=== PATIENT | male | born 1965 | race Caucasian/White ===

== ENCOUNTER 2017-02-27 18:05 | Emergency (ER) | payer BC, OTHER ==
[~2017-02-27] VITALS: Ht 180.3 cm; Wt 108.1 kg
[2017-02-27 18:09] VITALS: TEMP 36.7; Ht 180.3 cm; Wt 108.1 kg
[2017-02-27] MEDS ORDERED: IBUPROFEN 600 MG TAB PO STA (18:14)
[2017-02-27] MEDS ORDERED: IBUP-1050 PO (18:21)
--- NOTE | 2017-02-27 18:44 | DIAGNOSTIC IMAGING REPORT ---
LEFT WRIST MIN 3 VIEWS ROUTINE CLINICAL HISTORY: Left wrist pain following fall. COMPARISON: None FINDINGS: There is a tiny ossific/calcific density along the distal scaphoid. This is age indeterminate. There is an acute mildly displaced fracture through the distal shaft and metaphysis of the left radius with intra-articular extension. The fracture at the articular surface is displaced. IMPRESSION: 1. Acute mildly displaced comminuted distal left radial fracture with intra-articular extension. 2. Tiny ossific density along the distal scaphoid. This finding is age indeterminate although probably chronic. Electronically signed by: Shane Lugo M.D. 02/27/2017 6:41 PM Dictated Date/Time: 02/27/2017 6:39 PM
--- NOTE | 2017-02-27 18:45 | DIAGNOSTIC IMAGING REPORT ---
LEFT SECOND FINGER RADIOGRAPHS CLINICAL HISTORY: Left second finger pain following fall. COMPARISON: None FINDINGS: Note is made of a tiny bone fragment along the palmar base of the middle phalanx of the left second finger. No additional fractures are identified. Alignment is otherwise anatomic. IMPRESSION: Tiny bone fragment along the palmar base of the middle phalanx of the left second finger which favors a minimally displaced acute avulsion fracture. Electronically signed by: Shane Lugo M.D. 02/27/2017 6:43 PM Dictated Date/Time: 02/27/2017 6:42 PM
[2017-02-27] MEDS ORDERED: OXYCODONE IR HOME PACK PO ONE (19:00)
--- NOTE | 2017-02-27 19:14 | EMERGENCY ROOM VISIT NOTE ---
ED Visit Note First contact with patient: 18:11 CHIEF COMPLAINT: Wrist injury HISTORY OF PRESENT ILLNESS: This 51-year-old patient presents to the emergency department with complaining of pain in the left wrist after falling on it just prior to arrival. The patient is barely able to move their wrist. The patient states the pain is throbbing and 4/10. Patient states he dislocated his second finger on the left hand and relocated it. He converses in pain and swelling to this finger also. No laceration, no weakness. No numbness or tingling. The patient denies any other injury. The patient is able to move their fingers and elbow without difficulty. The patient has not had a previous fracture to this wrist. The patient has taken nothing for the pain. REVIEW OF SYSTEMS: A 6 system review of systems was performed with positives and pertinent negatives in the HPI. ALLERGIES: Tylenol MEDICATIONS: Ibuprofen PMH:Medical Problems: (1) Appendicitis Status: Resolved (2) Inguinal hernia Status: Resolved (3) Perforated appendicitis Status: Resolved Surgical Problems: (1) History of appendectomy Status: Resolved SOCIAL HISTORY: No drug use PHYSICAL EXAM: Vital Signs: Reviewed Nurse's notes, vital signs hypertensive. GENERAL: Pleasant male, in no acute distress, but appears to be in pain, well- developed, well-neurished. NEURO: Alert and oriented to person place and time. Normal sensation to light and sharp touch. MUSCULOSKELETAL: There is no deformity of the left wrist. There is tenderness and edema over distal radius. There is no snuff box tenderness. Range of motion is intact but painful. Left second finger minimally tender to palpation with full extension and flexion There is no tenderness of the elbow, hand or other fingers. Transmitter Tester strength 5/5. Radial pulse 2+. SKIN: Normal and intact. The hand is warm and well perfused with capillary refill less than 2 seconds. EMERGENCY DEPARTMENT COURSE: I examined the patient. An X-ray of the left finger and wrist was reviewed by myself and radiology and showed LEFT WRIST MIN 3 VIEWS ROUTINE CLINICAL HISTORY: Left wrist pain following fall. COMPARISON: None FINDINGS: There is a tiny ossific/calcific density along the distal scaphoid. This is age indeterminate. There is an acute mildly displaced fracture through the distal shaft and metaphysis of the left radius with intra-articular extension. The fracture at the articular surface is displaced. IMPRESSION: 1. Acute mildly displaced comminuted distal left radial fracture with intra-articular extension. 2. Tiny ossific density along the distal scaphoid. This finding is age indeterminate although probably chronic. Electronically signed by: Shane Lugo M.D. 02/27/2017 6:41 PM Dictated Date/Time: 02/27/2017 6:39 PM LEFT SECOND FINGER RADIOGRAPHS CLINICAL HISTORY: Left second finger pain following fall. COMPARISON: None FINDINGS: Note is made of a tiny bone fragment along the palmar base of the middle phalanx of the left second finger. No additional fractures are identified. Alignment is otherwise anatomic. IMPRESSION: Tiny bone fragment along the palmar base of the middle phalanx of the left second finger which favors a minimally displaced acute avulsion fracture. Electronically signed by: Shane Lugo M.D. 02/27/2017 6:43 PM A thumb spica Ortho-Glass and metal finger splint was placed under my direction and the position was satisfactory. Neurovascular status rechecked and intact. Patient is advised follow-up orthopedics for definitive care for his injuries. He was advised to return to the ER immediately for severe pain, numbness, tingling, worsening signs or symptoms or as needed. The patient was discharged home in good condition. Patient was also advised to monitor his blood pressure as was high today. DIAGNOSIS: #1 left wrist fracture #2 left second finger fracture DISCHARGE INSTRUCTIONS & TREATMENT: As below Problem List Medical Problems: (1) Appendicitis Status: Resolved (2) Inguinal hernia Status: Resolved (3) Perforated appendicitis Status: Resolved Surgical Problems: (1) History of appendectomy Status: Resolved Current/Historical Medications Scheduled Ibuprofen (Advil), 200-600 MG PO Q4H Allergies Coded Allergies: Acetaminophen (Unverified Adverse Reaction, Intermediate, DEPRESSION, 02/27) Adhesives (Verified Adverse Reaction, Intermediate, BANDAIDS,TAPE-REALLY ADHERES TO SKIN,TURNS TO MUSH, 02/27/17) Vital Signs Date Time Temp Pulse Resp B/P Pulse Ox O2 Delivery O2 Flow Rate FiO2 02/27/17 18:54 80 15 178/100 96 Room Air 02/27/17 18:09 36.7 89 18 232/116 93 Room Air Medications Administered Medications (Trade) Dose Ordered Sig/Adalberto Route Start Time Stop Time Status Last Admin Dose Admin Ibuprofen (Motrin Tab) 600 mg NOW STAT PO 02/27/17 18:14 02/27/17 18:15 DC 02/27/17 18:30 600 MG Departure Information Impression Primary Impression: Left wrist fracture Additional Impression: Finger fracture, left Dispostion Home / Self-Care Condition GOOD Referrals José Miguel Car MD Forms WORK / SCHOOL INSTRUCTIONS, HOME CARE DOCUMENTATION FORM, IMPORTANT VISIT INFORMATION Patient Instructions Fx Wrist Tx, [facility] Additional Instructions Oxycodone (OxyIR) 5mg: Take 1-2 pills every four hours for breakthrough pain. Avoid alcohol, operating machinery or dangerous equipment, working on ladders or roofs, DRIVING, or situations where being under the influence may be dangerous. It is recommended to use an [id number] stool softener such as Colace, 100mg twice daily while taking this medication to avoid constipation. Ibuprofen(Motrin, Advil) may be used for fever or pain. Use 600mg every six hours as needed. Take with food. Avoid using more than 2400mg in a 24 hour period. Do not use 2400mg per day for more than three consecutive days without physician direction. Prolonged inappropriate use can lead to stomach upset or ulcers. This medication can be taken if you need to drive, work, or perform activities which may be dangerous when taking narcotic pain medication. (AND/OR) Acetaminophen(Tylenol) may be used for fever or pain. Use 1000mg every six hours as needed. Avoid using more than 3000mg in a 24 hour period. This medication can be taken if you need to drive, work, or perform activities which may be dangerous when taking narcotic pain medication. Ice compresses for 20 minutes at a time four times daily for 2-3 days. Rest and elevate your injury. Do not get the splint wet. If your splint feels excessively tight, you have worsening pain, develop numbness or tingling, or your digits appear blue, loosen the clyde wrap. Then reapply the clyde wrap gently without removing the splint. If your symptoms are not quickly relieved return to the ER for re- evaluation. Continue current medications. Return to the ER immediately for any numbness, tingling, severe pain, extreme swelling in the extremity or as needed. Call Orthopedics tomorrow to arrange follow up for your injury. Problem Qualifiers
[2017-02-27 19:47] VITALS: BP 182/114; PULSE 80; O2SAT 95
== END 2017-02-27 19:49 | disposition home or self-care (01) ==
LOC: C.EDB 18:06 → C.EDD 19:49
DX: S52.572A Other intraarticular fracture of lower end of left radius, initial encounter for closed fracture (principal); S62.621A Displaced fracture of middle phalanx of left index finger, initial encounter for closed fracture; W19.XXXA Unspecified fall, initial encounter; Z87.19 Personal history of other diseases of the digestive system

== ENCOUNTER → 2017-03-05 | Outpatient (CLI) | payer BC ==
[~2017-03-05] MED LIST: IBUP-1050 PO
--- NOTE | 2017-03-05 08:50 | DIAGNOSTIC IMAGING REPORT ---
LEFT WRIST CT CT DOSE: 150.18 mGy.cm HISTORY: LEFT DISTAL RADIUS FRACTURE TECHNIQUE: Multiaxial CT images of the left wrist were performed and reformatted in the sagittal and coronal plane without the use of contrast. COMPARISON: Left wrist 02/27/2017. FINDINGS: There is again noted a comminuted fracture involving the distal radius which demonstrates intra-articular extension. This demonstrates mild dorsal displacement of 2 mm and minimal depression of approximately 1 mm. This remains unchanged. The ulna is intact. Punctate ossific density dorsal to the scaphoid is consistent with an age-indeterminate fracture. Diffuse soft tissue swelling within the wrist. IMPRESSION: 1. No change in the comminuted intra-articular fracture within the distal radius which demonstrates approximately 2 mm of dorsal displacement and 1 mm of depression. 2. Tiny ossific density adjacent to the scaphoid consistent with an age-indeterminate fracture. Electronically signed by: Km Flanagan M.D. 03/05/2017 8:48 AM Dictated Date/Time: 03/05/2017 8:44 AM
== END | disposition home or self-care (01) ==
LOC: C.CTS 08:22
PROVIDERS: ATTEND Orthopaedic Surgery Sports Medicine
DX: S52.502A Unspecified fracture of the lower end of left radius, initial encounter for closed fracture (principal); X58.XXXA Exposure to other specified factors, initial encounter

== ENCOUNTER → 2017-03-18 | Outpatient (CLI) | payer BC | END | disposition home or self-care (01) | LOC: C.RDSM 15:00 | PROVIDERS: ATTEND Orthopaedic Surgery Sports Medicine | DX: S52.572D Other intraarticular fracture of lower end of left radius, subsequent encounter for closed fracture with routine healing (principal); X58.XXXD Exposure to other specified factors, subsequent encounter ==

== ENCOUNTER 2020-10-23 06:39 | Inpatient (IN) ==
--- OUTSIDE RECORDS SUMMARY | 2020-10-23 06:42 | External Medical Summary | Continuity of Care Document ---
:1965 Author Name Boston Guerra Address Unavailable Unavailable , Care Team Providers Name Role Phone Freddie Guerra, Yvonne Unavailable [email or web address] Unavailable Unavailable Unavailable Unavailable Unavailable Assessments Assessed Problems:Solitary pulmonary noduleMediastinal lymphadenopathyChronic obstructive pulmonary disease Problems Recurrent Appendicitis (542) Esophageal reflux (530.81) (K21.9) Left inguinal hernia (550.90) (K40.90) Shortness of breath (786.05) (R06.02) Solitary pulmonary nodule (793.11) (R91.1) Chronic obstructive pulmonary disease (496) (J44.9) Mediastinal lymphadenopathy (785.6) (R59.0) Allergies and Adverse Reactions Acetaminophen TABS (Allergy) Reaction: D epression Medications Ibuprofen TABS Refills: 0 Ventolin HFA 108 (90 Base) MCG/ACT Inhal ation Aerosol Solution; INHALE 2 PUFFS EVERY 4-6 HOURS NEEDED. Charlie Frazier Start: 26-Dec-2014 Quantity: 1 18 GM Inhaler Refills: 5 Procedures History of Inguinal Hernia Repair Status : Completed History of Dental Surgery Status: Comple yenni History of Surgery Spermatic Cord Excision Of Hydrocele Status: Completed History of Appendectomy Status: Complete d Immunizations Immunizations not documented Family History Unknown Family Member Family history of No Significant Family Status: Active Comments: Family History History Social History - Smoking Status Ex-smoker Interventions Discussion/SummarySolitary pulmonary nodule with hilar adenopathy: The patient has undergone endobronchial ultrasound guided needle aspirate of his mediastinal lymphadenopathy. Benign, polyclonal lymphocytes were noted at the time of biopsy without evidence of malignancy or granulomas. He is virtually asymptomatic in re gards to this. Follow-up imaging studies have shown these findings to be stable. I recommend the patient follow up on an as-needed basis. He does not require further imaging studies. COPD: Patient does have mild COPD from his prior prior cigarette smoking. He remains smoke free. Irecommended the use of Ventolin on an as-needed basis when he develops cough, shortness of breath orchest congestion. Esophageal reflux: The patient one severe episode of esophageal reflux during sleep that causes anepisode of aspiration. He is not having chronic symptoms. Plan of Treatment Planned Observations Planned Goals not documented Results No Known Results Results not documented Encounters Appointment; Abdi Frazier M.D. 08-Aug-2015 10:15 Encounter Diagnosis: Problem not documented
[2020-10-23] MEDS ORDERED: HYDROmorphone INJ 0.5 MG/0.5 ML SYR IV PRN (06:48)
[2020-10-23] MEDS ORDERED: ACETAMINOPHEN 1,000 MG/100 ML VIAL IV STA (06:48)
[2020-10-23] MEDS ORDERED: ONDANSETRON INJ 2 MG/ML 2 ML VIAL IV STA (06:48)
[2020-10-23] MEDS ORDERED: ALBUTEROL HFA 8 GM INHALER INH ONE (07:05)
--- NOTE | 2020-10-23 07:11 | Emergency Department Note ---
History of Present Illness General Chief complaint: Shortness of Breath/Dyspnea Stated complaint: BREATHING DIFFICULTY Time Seen by Provider: 10/23/20 06:46 Source: patient, EMS, RN notes reviewed and old records reviewed Mode of arrival: EMS Limitations: no limitations History of Present Illness Provider complaint: Abdominal pain Onset (ago): day(s) 5 Location: abdomen Radiation: back Severity: moderate Pain Consistency: + intermittent Maximum Pain Intensity: 2 Current Pain Intensity: 2 Quality: + aching Relieved By: + immobilization and + rest Exacerbated By: + movement Associated symptoms: + cough, + fever/chills, + loss of appetite, + shortness of breath and + weakness Treatments prior to arrival: none This is a 55-year-old male who reports to the emergency department complaining of abdominal pain that has been ongoing since Friday. In addition to the abdominal pain the patient is also complaining of shortness of breath. He is also complaining of weakness. The patient reports he has a history of appendicitis. He reports the abdominal pain is made worse with movement or talking however rest makes it better. He has not taken anything for the abdominal pain prior to arrival. He describes the pain as a burning sensation radiating into the back. Home Medications Medication Instructions Recorded Confirmed Type cholecalciferol (vitamin D3) 50 mcg PO DAILY 10/23/20 10/23/20 History [Vitamin D3] losartan 25 mg PO DAILY 10/23/20 10/23/20 History Allergies Allergy/AdvReac Type Severity Reaction Status Date / Time acetaminophen AdvReac Intermediate DEPRESSION Unverified 10/23/20 06:56 adhesive AdvReac Intermediate BANDAIDS,TAPE-REALLY Verified 10/23/20 06:56 ADHERES TO SKIN,TURNS TO MUSH Past Med/Surg History Medical History (Updated 10/24/20 @ 08:37 by Fidel Jimenez MD) HTN (hypertension) Surgical History (Updated 10/23/20 @ 11:24 by Jill Vargas PA-C) History of appendectomy Inguinal hernia s/p repair x 3 Family History (Updated 10/23/20 @ 11:25 by Jill Vargas PA-C) Mother Lung disease Social History (Updated 10/23/20 @ 11:26 by Jill Vargas PA-C) Smoking Status: Former smoker Tobacco Type: Cigarettes packs per day: 1.5; Years Smoked: 30; Second Hand Exposure: No; Hx Alcohol Use: Yes Alcohol type: beer Alcohol Intake Frequency: Monthly or Less Hx Substance Use: No Preferred Language: Slovenian Communication Ability: Effective Skiver Uppers Or Linings Required: No Beliefs That Will Affect Care: None marital status: Current Living Situation: Spouse current occupational status: employed 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 Feels Safe at Home: Yes Assistive Devices: Oxygen - Continuous Review of Systems A total of 10 systems reviewed and were otherwise negative Physical Exam Vital Signs Vital Signs - 24 hr 10/23/20 09:10 10/23/20 09:19 10/23/20 09:20 Pulse Rate 100 H 87 90 Pulse Rate from SpO2 Sensor 97 H 88 90 Respiratory Rate 26 H 23 Blood Pressure 118/66 Blood Pressure Mean 77 Pulse Oximetry 94 92 93 10/23/20 09:30 10/23/20 09:31 10/23/20 09:40 Pulse Rate 91 H 87 90 Pulse Rate from SpO2 Sensor 92 H 87 91 H Respiratory Rate 22 19 15 Blood Pressure 118/66 Blood Pressure Mean 78 Pulse Oximetry 93 92 90 10/23/20 09:50 10/23/20 10:00 10/23/20 10:01 Pulse Rate 91 H 92 H 98 H Pulse Rate from SpO2 Sensor 89 91 H 97 H Respiratory Rate 22 16 23 Blood Pressure 130/70 Blood Pressure Mean 105 Pulse Oximetry 90 92 91 VITAL SIGNS - Vital signs and nursing notes were reviewed. GENERAL - 55-year-old male appearing stated age who is in no acute distress. Communicates well with provider and answers questions appropriately. SKIN - Without rashes. HEAD - NC/AT. EYES - PERRL with EOMI bilaterally. Sclera anicteric. Palpebral conjunctiva pink and moist with no injection noted. EARS - No deformities of external structures noted on gross examination bilaterally. No pain elicited with palpation of the tragus bilaterally. External auditory canals without discharge or otorrhea. Tympanic membranes pearly cullen without retraction or bulging. No fluid or purulent material visualized behind the TM. Handle of malleus, umbo, cone of light, pars tensa/flaccid all easily visualized. NOSE - Midline and without cyanosis. No epistaxis or purulent drainage noted. Septum midline without deviation or septal hematoma noted. MOUTH/OROPHARYNX - Without perioral cyanosis. Buccal mucosa pink and moist and without leukoplakia. Tongue midline with equal elevation of palate bilaterally. No tonsillar hypertrophy, erythema, or exudates noted. dentition noted. NECK - Neck with FROM. Supple to palpation. lymphadenopathy noted. No nuchal rigidity. LUNGS - Chest wall symmetric without accessory muscle use, intercostals retractions, or central cyanosis. Normal vesicular breath sounds CTA B/L. No wheezes, rales, or rhonchi appreciated. CARDIAC - RRR with S1/S2. No murmur, rubs, or gallops appreciated. ABDOMEN - grossly distended and tender throughout EXTREMITIES - No clubbing or peripheral cyanosis. No pretibial edema present. +3/5 radial, posterior tibial, and dorsalis pedis pulses palpated throughout. +5/5 strength noted in UE/LE bilaterally. NEUROLOGIC - Cranial nerves II through XII grossly intact. Sensory intact to light touch throughout. Patellar reflexes +2/4. PSYCH - A&Ox3 and cooperates fully with examiner. Pt is very pleasant and interacts well with examiner. Course Administered Medications Heparin Sodium (Porcine) (Heparin Sod 5,000 Unit/0.5 Ml Vial) 5,000 units SQ Q8 SONAL Stop: 11/22/20 13:59 Last Admin: 10/24/20 05:53 Dose: 5,000 units Documented by: [id number] Admin: 10/23/20 22:03 Dose: 5,000 units Documented by: [id number] Admin: 10/23/20 15:00 Dose: 5,000 units Documented by: [id number] Acetaminophen (Ofirmev) 1,000 mg in 100 mls @ 400 mls/hr IV Q8H PRN PRN Reason: moderate pain Stop: 10/26/20 12:48 Last Infusion: 10/24/20 07:56 Dose: 0 mls/hr Documented by: [id number] Admin: 10/24/20 07:38 Dose: 400 mls/hr Documented by: [id number] Infusion: 10/23/20 20:27 Dose: 0 mls/hr Documented by: [id number] Admin: 10/23/20 19:50 Dose: 400 mls/hr Documented by: [id number] Piperacillin Sod/Tazobactam (Sod 4.5 gm/ Dextrose) 120 mls @ 30 mls/hr IV Q8 SONAL; Protocol Stop: 11/02/20 13:59 Last Admin: 10/24/20 05:54 Dose: 30 mls/hr Documented by: [id number] Infusion: 10/24/20 01:35 Dose: 0 mls/hr Documented by: [id number] Admin: 10/23/20 22:03 Dose: 30 mls/hr Documented by: [id number] Infusion: 10/23/20 19:10 Dose: 0 mls/hr Documented by: [id number] Admin: 10/23/20 15:00 Dose: 30 mls/hr Documented by: [id number] Lactated Ringer's (Lr) 1,000 mls @ 150 mls/hr IV .Q6H40M SONAL Stop: 11/23/20 07:29 Last Admin: 10/24/20 07:59 Dose: 150 mls/hr Documented by: [id number] Morphine Sulfate (Morphine Sulfate 4 Mg/Ml 1 Ml Carp\Vial) 4 mg IV Q4H PRN PRN Reason: severe pain Stop: 11/06/20 12:48 Last Admin: 10/24/20 03:08 Dose: 4 mg Documented by: [id number] Discontinued Medications Albuterol (Albuterol Hfa 8 Gm Inhaler) 2 puffs INH NOW ONE Stop: 10/23/20 07:06 Last Admin: 10/23/20 07:22 Dose: 2 puffs Documented by: [id number] Hydromorphone HCl (Hydromorphone Inj 0.5 Mg/0.5 Ml Syr) 0.5 mg IV Q15M PRN PRN Reason: Pain Stop: 11/06/20 06:47 Last Admin: 10/23/20 07:23 Dose: 0.5 mg Documented by: [id number] Acetaminophen (Ofirmev) 1,000 mg in 100 mls @ 400 mls/hr IV NOW STA Stop: 10/23/20 07:02 Last Infusion: 10/23/20 07:42 Dose: 0 mls/hr Documented by: [id number] Admin: 10/23/20 07:22 Dose: 400 mls/hr Documented by: [id number] Sodium Chloride (Nss 1000ml) 1,000 mls @ 999 mls/hr IV .Q1H1M ONE Stop: 10/23/20 08:49 Last Infusion: 10/23/20 09:27 Dose: 0 mls/hr Documented by: [id number] Admin: 10/23/20 08:25 Dose: 999 mls/hr Documented by: [id number] Piperacillin Sod/Tazobactam Sod (Zosyn) 4.5 gm in 120 mls @ 240 mls/hr IV NOW ONE Stop: 10/23/20 08:18 Last Infusion: 10/23/20 08:54 Dose: 0 mls/hr Documented by: [id number] Admin: 10/23/20 08:24 Dose: 240 mls/hr Documented by: [id number] Levofloxacin/Dextrose (Levaquin/D5w) 750 mg in 150 mls @ 100 mls/hr IV NOW STA Stop: 10/23/20 09:18 Last Infusion: 10/23/20 10:14 Dose: 0 mls/hr Documented by: [id number] Admin: 10/23/20 08:25 Dose: 100 mls/hr Documented by: [id number] Daptomycin 450 mg/ Syringe 9 mls @ 4.5 mls/min IV NOW ONE; Protocol Stop: 10/23/20 07:50 Last Admin: 10/23/20 08:29 Dose: 4.5 mls/min Documented by: [id number] Sodium Chloride (Nss 1000ml) 1,000 mls @ 999 mls/hr IV .Q1H1M ONE Stop: 10/23/20 08:51 Last Infusion: 10/23/20 09:27 Dose: 0 mls/hr Documented by: [id number] Admin: 10/23/20 08:25 Dose: 999 mls/hr Documented by: [id number] Sodium Chloride (Nss 1000ml) 1,000 mls @ 999 mls/hr IV .Q1H1M ONE Stop: 10/23/20 09:07 Last Infusion: 10/23/20 09:27 Dose: 0 mls/hr Documented by: [id number] Admin: 10/23/20 08:25 Dose: 999 mls/hr Documented by: [id number] Ondansetron HCl (Ondansetron Inj 2 Mg/Ml 2 Ml Vial) 4 mg IV NOW STA Stop: 10/23/20 06:49 Last Admin: 10/23/20 07:23 Dose: 4 mg Documented by: [id number] Critical Care Time I have personally spent greater than 90 minutes of critical care time in the direct management of this patient. This includes bedside care, interpretation of diagnostic studies, and testing, discussion with consultants, patient, and family members, and other required patient management activities. This 90 minutes is in excess of all separately billable procedures. Medical Decision Making Differential Diagnosis Sepsis, UTI, pneumonia, metabolic, electrolyte abnormalities, cardiac sources, intracerebral event, toxicologic, neurologic, as well as other pathologies. Medical Records Attestation: I reviewed the patient's medical records. Home Medications Current Medication List: was personally reviewed by me Laboratory Data Attestation: I reviewed the patient's lab results. Result diagrams: 10/24/20 07:10 10/24/20 07:10 Lab Results 10/23/20 10/23/20 10/23/20 Range/Units 06:56 06:56 06:56 WBC 23.77 H (4.8-10.8) K/uL RBC 5.32 (4.7-6.1) M/uL Hgb 16.2 (14.0-18.0) g/dL Hct 47.7 (42-52) % MCV 89.7 (80-100) fL MCH 30.5 (25-34) pg MCHC 34.0 (32-36) g/dL RDW Std Deviation 45.9 (36.4-46.3) fL RDW Coeff of Kirstin 13.9 (11.5-14.5) % Plt Count 339 (130-400) K/uL MPV 10.7 H (7.4-10.4) fL Immature Gran % (Auto) 0.5 % Neut % (Auto) 84.6 % Lymph % (Auto) 6.6 % [place]on % (Auto) 8.2 % Eos % (Auto) 0.0 % Baso % (Auto) 0.1 % Neut # (Auto) 20.14 H (1.4-6.5) K/uL Lymph # (Auto) 1.56 (1.2-3.4) K/uL [place]on # (Auto) 1.94 H (0.11-0.59) K/uL Eos # (Auto) 0.00 (0-0.5) K/uL Baso # (Auto) 0.02 (0-0.2) K/uL Immature Gran # (Auto) 0.11 H (0.00-0.02) K/uL Peripher Smr Path Cons ESR 73 H (0-14) mm/hr PT 13.2 H (9.0-12.0) Seconds INR 1.3 H (0.9-1.1) APTT 33.6 H (21.0-31.0) Seconds PTT Ratio 1.2 D-Dimer 2900 H* (0-500) ug/L FEU Sodium (136-145) mmol/L Potassium (3.5-5.1) mmol/L Chloride (98-107) mmol/L Carbon Dioxide (21-32) mmol/L Anion Gap (3-11) BUN (7-18) mg/dl Creatinine (0.6-1.4) mg/dl Est Cr Clr Drug Dosing ml/min Est GFR ( Amer) Est GFR (Non-Af Amer) BUN/Creatinine Ratio (10-20) Glucose (70-99) mg/dl Lactate (0.4-2.0) mmol/L Calcium (8.5-10.1) mg/dl Magnesium (1.8-2.4) mg/dl Ferritin (8-388) ng/ml Total Bilirubin (0.2-1) mg/dl AST (15-37) U/L ALT (12-78) U/L Alkaline Phosphatase (45-117) U/L Lactate Dehydrogenase (87-241) U/L Troponin I (0-0.045) ng/ml C-Reactive Protein (0-0.29) mg/dl Total Protein (6.4-8.2) gm/dl Albumin (3.4-5.0) gm/dl Globulin (2.5-4.0) gm/dl Albumin/Globulin Ratio (0.9-2) Procalcitonin Specimen Hemolysis COVID-19 Eval Order COVID-19 PCR (Negative) Hepatitis C Ab Screen (Neg) Influenza Type A (PCR) (Neg) Influenza Type B (PCR) (Neg) RSV (RT-PCR) (Neg) SARS-CoV-2, RNA, NAAT (NEGATIVE) Blood Type Antibody Screen 10/23/20 10/23/20 10/23/20 Range/Units 06:56 06:56 06:56 WBC (4.8-10.8) K/uL RBC (4.7-6.1) M/uL Hgb (14.0-18.0) g/dL Hct (42-52) % MCV (80-100) fL MCH (25-34) pg MCHC (32-36) g/dL RDW Std Deviation (36.4-46.3) fL RDW Coeff of Kirstin (11.5-14.5) % Plt Count (130-400) K/uL MPV (7.4-10.4) fL Immature Gran % (Auto) % Neut % (Auto) % Lymph % (Auto) % Macon % (Auto) % Eos % (Auto) % Baso % (Auto) % Neut # (Auto) (1.4-6.5) K/uL Lymph # (Auto) (1.2-3.4) K/uL Macon # (Auto) (0.11-0.59) K/uL Eos # (Auto) (0-0.5) K/uL Baso # (Auto) (0-0.2) K/uL Immature Gran # (Auto) (0.00-0.02) K/uL Peripher Smr Path Cons ESR (0-14) mm/hr PT (9.0-12.0) Seconds INR (0.9-1.1) APTT (21.0-31.0) Seconds PTT Ratio D-Dimer (0-500) ug/L FEU Sodium 133 L (136-145) mmol/L Potassium 4.1 (3.5-5.1) mmol/L Chloride 98 (98-107) mmol/L Carbon Dioxide 21 (21-32) mmol/L Anion Gap 14.0 H (3-11) BUN 37 H (7-18) mg/dl Creatinine 3.28 H (0.6-1.4) mg/dl Est Cr Clr Drug Dosing 30.2 ml/min Est GFR ( Amer) 23.1 Est GFR (Non-Af Amer) 19.9 BUN/Creatinine Ratio 11.4 (10-20) Glucose 214 H (70-99) mg/dl Lactate 4.6 H* (0.4-2.0) mmol/L Calcium 9.7 (8.5-10.1) mg/dl Magnesium 2.0 (1.8-2.4) mg/dl Ferritin 847.8 H (8-388) ng/ml Total Bilirubin 1.3 H (0.2-1) mg/dl AST 19 (15-37) U/L ALT 49 (12-78) U/L Alkaline Phosphatase 86 (45-117) U/L Lactate Dehydrogenase 208 (87-241) U/L Troponin I < 0.015 (0-0.045) ng/ml C-Reactive Protein 35.70 H (0-0.29) mg/dl Total Protein 8.7 H (6.4-8.2) gm/dl Albumin 3.0 L (3.4-5.0) gm/dl Globulin 5.7 H (2.5-4.0) gm/dl Albumin/Globulin Ratio 0.5 L (0.9-2) Procalcitonin Specimen Hemolysis COVID-19 Eval Order COVID-19 PCR (Negative) Hepatitis C Ab Screen (Neg) Influenza Type A (PCR) (Neg) Influenza Type B (PCR) (Neg) RSV (RT-PCR) (Neg) SARS-CoV-2, RNA, NAAT (NEGATIVE) Blood Type Antibody Screen 10/23/20 10/23/20 10/23/20 Range/Units 06:56 06:58 06:58 WBC (4.8-10.8) K/uL RBC (4.7-6.1) M/uL Hgb (14.0-18.0) g/dL Hct (42-52) % MCV (80-100) fL MCH (25-34) pg MCHC (32-36) g/dL RDW Std Deviation (36.4-46.3) fL RDW Coeff of Kirstin (11.5-14.5) % Plt Count (130-400) K/uL MPV (7.4-10.4) fL Immature Gran % (Auto) % Neut % (Auto) % Lymph % (Auto) % [place] % (Auto) % Eos % (Auto) % Baso % (Auto) % Neut # (Auto) (1.4-6.5) K/uL Lymph # (Auto) (1.2-3.4) K/uL Macon # (Auto) (0.11-0.59) K/uL Eos # (Auto) (0-0.5) K/uL Baso # (Auto) (0-0.2) K/uL Immature Gran # (Auto) (0.00-0.02) K/uL Peripher Smr Path Cons ESR (0-14) mm/hr PT (9.0-12.0) Seconds INR (0.9-1.1) APTT (21.0-31.0) Seconds PTT Ratio D-Dimer (0-500) ug/L FEU Sodium (136-145) mmol/L Potassium (3.5-5.1) mmol/L Chloride (98-107) mmol/L Carbon Dioxide (21-32) mmol/L Anion Gap (3-11) BUN (7-18) mg/dl Creatinine (0.6-1.4) mg/dl Est Cr Clr Drug Dosing ml/min Est GFR ( Amer) Est GFR (Non-Af Amer) BUN/Creatinine Ratio (10-20) Glucose (70-99) mg/dl Lactate (0.4-2.0) mmol/L Calcium (8.5-10.1) mg/dl Magnesium (1.8-2.4) mg/dl Ferritin (8-388) ng/ml Total Bilirubin (0.2-1) mg/dl AST (15-37) U/L ALT (12-78) U/L Alkaline Phosphatase (45-117) U/L Lactate Dehydrogenase (87-241) U/L Troponin I (0-0.045) ng/ml C-Reactive Protein (0-0.29) mg/dl Total Protein (6.4-8.2) gm/dl Albumin (3.4-5.0) gm/dl Globulin (2.5-4.0) gm/dl Albumin/Globulin Ratio (0.9-2) Procalcitonin Cancelled Specimen Hemolysis COVID-19 Eval Order Covid19 [facility] COVID-19 PCR (Negative) Hepatitis C Ab Screen (Neg) Influenza Type A (PCR) (Neg) Influenza Type B (PCR) (Neg) RSV (RT-PCR) (Neg) SARS-CoV-2, RNA, NAAT NEGATIVE (NEGATIVE) Blood Type Antibody Screen 10/23/20 10/23/20 10/23/20 Range/Units 07:28 08:31 08:31 WBC (4.8-10.8) K/uL RBC (4.7-6.1) M/uL Hgb (14.0-18.0) g/dL Hct (42-52) % MCV (80-100) fL MCH (25-34) pg MCHC (32-36) g/dL RDW Std Deviation (36.4-46.3) fL RDW Coeff of Kirstin (11.5-14.5) % Plt Count (130-400) K/uL MPV (7.4-10.4) fL Immature Gran % (Auto) % Neut % (Auto) % Lymph % (Auto) % [place] % (Auto) % Eos % (Auto) % Baso % (Auto) % Neut # (Auto) (1.4-6.5) K/uL Lymph # (Auto) (1.2-3.4) K/uL [place] # (Auto) (0.11-0.59) K/uL Eos # (Auto) (0-0.5) K/uL Baso # (Auto) (0-0.2) K/uL Immature Gran # (Auto) (0.00-0.02) K/uL Peripher Smr Path Cons Cancelled ESR (0-14) mm/hr PT (9.0-12.0) Seconds INR (0.9-1.1) APTT (21.0-31.0) Seconds PTT Ratio D-Dimer (0-500) ug/L FEU Sodium (136-145) mmol/L Potassium (3.5-5.1) mmol/L Chloride (98-107) mmol/L Carbon Dioxide (21-32) mmol/L Anion Gap (3-11) BUN (7-18) mg/dl Creatinine (0.6-1.4) mg/dl Est Cr Clr Drug Dosing ml/min Est GFR ( Amer) Est GFR (Non-Af Amer) BUN/Creatinine Ratio (10-20) Glucose (70-99) mg/dl Lactate (0.4-2.0) mmol/L Calcium (8.5-10.1) mg/dl Magnesium (1.8-2.4) mg/dl Ferritin (8-388) ng/ml Total Bilirubin (0.2-1) mg/dl AST (15-37) U/L ALT (12-78) U/L Alkaline Phosphatase (45-117) U/L Lactate Dehydrogenase (87-241) U/L Troponin I (0-0.045) ng/ml C-Reactive Protein (0-0.29) mg/dl Total Protein (6.4-8.2) gm/dl Albumin (3.4-5.0) gm/dl Globulin (2.5-4.0) gm/dl Albumin/Globulin Ratio (0.9-2) Procalcitonin 12.84 H Specimen Hemolysis COVID-19 Eval Order COVID-19 PCR (Negative) Hepatitis C Ab Screen (Neg) Influenza Type A (PCR) (Neg) Influenza Type B (PCR) (Neg) RSV (RT-PCR) (Neg) SARS-CoV-2, RNA, NAAT (NEGATIVE) Blood Type O Negative Antibody Screen NEGATIVE 10/23/20 10/23/20 10/23/20 Range/Units 08:31 08:32 08:32 WBC (4.8-10.8) K/uL RBC (4.7-6.1) M/uL Hgb (14.0-18.0) g/dL Hct (42-52) % MCV (80-100) fL MCH (25-34) pg MCHC (32-36) g/dL RDW Std Deviation (36.4-46.3) fL RDW Coeff of Kirstin (11.5-14.5) % Plt Count (130-400) K/uL MPV (7.4-10.4) fL Immature Gran % (Auto) % Neut % (Auto) % Lymph % (Auto) % [place] % (Auto) % Eos % (Auto) % Baso % (Auto) % Neut # (Auto) (1.4-6.5) K/uL Lymph # (Auto) (1.2-3.4) K/uL Macon # (Auto) (0.11-0.59) K/uL Eos # (Auto) (0-0.5) K/uL Baso # (Auto) (0-0.2) K/uL Immature Gran # (Auto) (0.00-0.02) K/uL Peripher Smr Path Cons ESR (0-14) mm/hr PT (9.0-12.0) Seconds INR (0.9-1.1) APTT (21.0-31.0) Seconds PTT Ratio D-Dimer (0-500) ug/L FEU Sodium (136-145) mmol/L Potassium (3.5-5.1) mmol/L Chloride (98-107) mmol/L Carbon Dioxide (21-32) mmol/L Anion Gap (3-11) BUN (7-18) mg/dl Creatinine (0.6-1.4) mg/dl Est Cr Clr Drug Dosing ml/min Est GFR ( Amer) Est GFR (Non-Af Amer) BUN/Creatinine Ratio (10-20) Glucose (70-99) mg/dl Lactate (0.4-2.0) mmol/L Calcium (8.5-10.1) mg/dl Magnesium (1.8-2.4) mg/dl Ferritin (8-388) ng/ml Total Bilirubin (0.2-1) mg/dl AST (15-37) U/L ALT (12-78) U/L Alkaline Phosphatase (45-117) U/L Lactate Dehydrogenase (87-241) U/L Troponin I (0-0.045) ng/ml C-Reactive Protein (0-0.29) mg/dl Total Protein (6.4-8.2) gm/dl Albumin (3.4-5.0) gm/dl Globulin (2.5-4.0) gm/dl Albumin/Globulin Ratio (0.9-2) Procalcitonin Specimen Hemolysis COVID-19 Eval Order [facility]FluRsv at [facility] COVID-19 PCR NEGATIVE (Negative) Hepatitis C Ab Screen Neg (Neg) Influenza Type A (PCR) Negative (Neg) Influenza Type B (PCR) Negative (Neg) RSV (RT-PCR) Negative (Neg) SARS-CoV-2, RNA, NAAT (NEGATIVE) Blood Type Antibody Screen 10/23/20 Range/Units 08:47 WBC (4.8-10.8) K/uL RBC (4.7-6.1) M/uL Hgb (14.0-18.0) g/dL Hct (42-52) % MCV (80-100) fL MCH (25-34) pg MCHC (32-36) g/dL RDW Std Deviation (36.4-46.3) fL RDW Coeff of Kirstin (11.5-14.5) % Plt Count (130-400) K/uL MPV (7.4-10.4) fL Immature Gran % (Auto) % Neut % (Auto) % Lymph % (Auto) % [place] % (Auto) % Eos % (Auto) % Baso % (Auto) % Neut # (Auto) (1.4-6.5) K/uL Lymph # (Auto) (1.2-3.4) K/uL [place]on # (Auto) (0.11-0.59) K/uL Eos # (Auto) (0-0.5) K/uL Baso # (Auto) (0-0.2) K/uL Immature Gran # (Auto) (0.00-0.02) K/uL Peripher Smr Path Cons ESR (0-14) mm/hr PT (9.0-12.0) Seconds INR (0.9-1.1) APTT (21.0-31.0) Seconds PTT Ratio D-Dimer (0-500) ug/L FEU Sodium (136-145) mmol/L Potassium (3.5-5.1) mmol/L Chloride (98-107) mmol/L Carbon Dioxide (21-32) mmol/L Anion Gap (3-11) BUN (7-18) mg/dl Creatinine (0.6-1.4) mg/dl Est Cr Clr Drug Dosing ml/min Est GFR ( Amer) Est GFR (Non-Af Amer) BUN/Creatinine Ratio (10-20) Glucose (70-99) mg/dl Lactate 3.6 H* (0.4-2.0) mmol/L Calcium (8.5-10.1) mg/dl Magnesium (1.8-2.4) mg/dl Ferritin (8-388) ng/ml Total Bilirubin (0.2-1) mg/dl AST (15-37) U/L ALT (12-78) U/L Alkaline Phosphatase (45-117) U/L Lactate Dehydrogenase (87-241) U/L Troponin I (0-0.045) ng/ml C-Reactive Protein (0-0.29) mg/dl Total Protein (6.4-8.2) gm/dl Albumin (3.4-5.0) gm/dl Globulin (2.5-4.0) gm/dl Albumin/Globulin Ratio (0.9-2) Procalcitonin Specimen Hemolysis COVID-19 Eval Order COVID-19 PCR (Negative) Hepatitis C Ab Screen (Neg) Influenza Type A (PCR) (Neg) Influenza Type B (PCR) (Neg) RSV (RT-PCR) (Neg) SARS-CoV-2, RNA, NAAT (NEGATIVE) Blood Type Antibody Screen Imaging Data Radiologist's Impression: [facility] [place] [phone] XRay Report Patient: BANDAR GABRIEL Admit Date: 10/23/20 MR#: [id number] Address1: [address] Acct ID:[id number] Address2: Date: 1965 [facility] Zip: [place] [address] Age: 55 Location: ED Sex: M Room/Bed: Att Phy: Diagnosis: BREATHING DIFFICULTY Parvin Phy: El Linares, DO Service Date: 10/23/20 Fam Phy: Interpreting Phy: Janak Mtz MD Admit Phy: Ordering Phy: Fidel Jimenez MD cc: ~ XR chest 1V portable CLINICAL HISTORY: SEPSIS COMPARISON STUDY: December 2013 FINDINGS: There are low lung volumes with hypoventilatory changes the lung bases. There is no lobar consolidation. There is no failure. There are no pleural effusions.[ IMPRESSION: Low lung volumes with hypoventilatory changes at the lung bases. ACT 112: Negative or not required by law. Electronically signed by: Janak Mtz M.D. 10/23/2020 7:20 AM Dictated: 10/23/20718 Transcribed: 10/23/20718 [facility], [id number] Ultrasound Report Patient: BANDAR GABRIEL LAdmit Date: 10/23/20MR#: [id number]: [id number] Acct ID:[id number]: Date: 1965[facility] Zip: [place], [place] [address]Skx: 55Location: 2SSex: MRoom/Bed: [id number] Phy: Maile Fox, DODiagnosis: BREATHING DIFFICULTYPri Phy: Sulman, El A., DOService Date: 10/23/20Fam Phy:Interpreting Phy: Shane Lugo MDAit Phy: Maile Fox DO Ordering Phy: Jill Vargas PA-C cc: ~ BILATERAL LOWER EXTREMITY VENOUS DOPPLER CLINICAL HISTORY: elevated d-dimer COMPARISON STUDY: No previous studies for comparison. TECHNIQUE: Sonography of the deep venous system of the bilateral lower extremities was performed. Compression and augmentation were evaluated. FINDINGS: The bilateral common femoral, superficial femoral and popliteal veins were compressible. Augmentation was normal. Flow was shown within the deep calf vessels. IMPRESSION: No evidence of deep venous thrombus within the bilateral lower extremities. ACT 112: Negative or not required by law. Electronically signed by: Shane Lugo M.D. 10/23/2020 4:16 PM Dictated: 10/23/20 1615 ECG Data Attestation: I personally reviewed and interpreted this ECG as follows: Indication: + abdominal pain Rate (beats per minute): 111 Rhythm: + sinus tachycardia ECG Intervals/blocks: + Normal QT-c (478) ECG Concord: + Normal ECG ST segments: no ST depression and no ST elevation Comparison ECG Date: from (03/03/2014) Change: no significant change MDM Narrative Patient was seen and evaluated as above in room C5. Review was performed of nursing notes and vital signs. I did review pertinent previous visits and patient history. After obtaining a thorough history and physical examination the above work up was performed. This is a 55-year-old male who presents emergency department febrile complaining of abdominal pain. The patient was swabbed for Covid. His chest x-ray does not show any evidence of pneumonia. He was given Tylenol Dilaudid Zofran here in the emergency department. His CAT scan is consistent with perforated diverticulitis. This is not amendable to percutaneous drain. He was started on broad-spectrum antibiotics including Zosyn as well as daptomycin. I did discuss the case with the surgeon on-call who asked that the patient be admitted to the medicine service. The patient had an elevation in his white blood cell count as well as his lactic. While in the department, I personally reevaluated the patient several times and each time the patient was found to be resting comfortably. The patient was educated upon management, educated upon todays findings/results, educated upon importance of follow up from today's visit, educated upon symptoms in which to return, had questions answered prior to discharge, verbalized understanding, and was discharged home in good condition. An order was placed for continuous cardiac monitoring. The monitor shows a rate of 120 with Sinus Tach rhythm. The patient was evaluated during a period of high volume and high acuity while the hospital was at overcapacity during the global COVID-19 pandemic, and that diagnosis was suspected/considered upon their initial presentation. Their evaluation, treatment and testing was consistent with current guidelines for patients who present with complaints or symptoms that may be related to COVID- 19. Impression & Plan Abdominal pain, Diverticulitis of colon with perforation, Lactic acidosis, Severe sepsis, Acute kidney failure Discharge Plan Visit Data Chief Complaint: Shortness of Breath/Dyspnea Stated Complaint: BREATHING DIFFICULTY ED Provider: Fidel Jimenez Discharge Problem: Abdominal pain, Diverticulitis of colon with perforation, Lactic acidosis, Severe sepsis, Acute kidney failure Patient Disposition: Admitted As Inpatient Discharge Instructions Interventions: ED Discharge Assessment Last Done: 10/23/20 11:43 Discharge Problem: Abdominal pain Qualifiers: Abdominal location: generalized Qualified Code(s): R10.84 - Generalized abdo maggi pain Diverticulitis of colon with perforation Qualifiers: Diverticulitis bleeding: unspecified bleeding status Qualified Code(s): K57.20 - Diverticulitis of large intestine with perforation and abscess without bleeding Acute kidney failure Qualifiers: Acute renal failure type: unspecified Qualified Code(s): N17.9 - Acute kidney failure, unspecified
--- NOTE | 2020-10-23 07:21 | XRay Report ---
XR chest 1V portable CLINICAL HISTORY: SEPSIS COMPARISON STUDY: December 2013 FINDINGS: There are low lung volumes with hypoventilatory changes the lung bases. There is no lobar c onsolidation. There is no failure. There are no pleural effusions.[ IMPRESSION: Low lung volumes with hypoventilatory changes at the lung bases. ACT 112: Negative or not required by law. Electronically signed by: Janak Mtz M.D. 10/23/2020 7:20 AM
[2020-10-23 07:38] LABS: Hematocrit (blood only) 47.7 % (42-52); Hemoglobin 16.2 g/dL (14.0-18.0); Mean Corpuscular Hemoglobin 30.5 pg (25-34); Mean Corpuscular Volume 89.7 fL (80-100); Mean Platelet Volume 10.7 fL (7.4-10.4); Platelet Count 339 K/uL (130-400); RDW Coefficient of Variation 13.9 % (11.5-14.5); RDW Standard Deviation 45.9 fL (36.4-46.3); Red Blood Count 5.32 M/uL (4.7-6.1); White Blood Count 23.77 K/uL (4.8-10.8)
[2020-10-23] MEDS ORDERED: SODIUM CHLORIDE 0.9% 1000ML 1,000 ML IV ONE ×3 (07:49→08:07)
[2020-10-23] MEDS ORDERED: PIPERACILLIN/TAZOBACTAM 4.5 GM/120 ML BAG IV ONE (07:49)
[2020-10-23] MEDS ORDERED: levoFLOXacin/D5W 750 MG/150 ML BAG IV STA (07:49)
[2020-10-23] MEDS ORDERED: DAPTOmycin 450 MG in SYRINGE 0 ML IV ONE (07:49)
[2020-10-23] MEDS ORDERED: PIPERACILL/TAZOBAC CONSULT ACTIVE PRN ×2 (07:49→12:49)
[2020-10-23 07:51] LABS: INR 1.3 (0.9-1.1); Partial Thromboplastin Ratio 1.2; Partial Thromboplastin Time 33.6 Seconds (21.0-31.0); Prothrombin Time 13.2 Seconds (9.0-12.0)
[2020-10-23 07:57] LABS: Basophils # (auto) 0.02 K/uL (0-0.2); Basophils % (auto) 0.1 %; Immature Granulocytes # (auto) 0.11 K/uL (0.00-0.02); Immature Granulocytes % (auto) 0.5 %; Lymphocytes # (auto) 1.56 K/uL (1.2-3.4); Lymphocytes % (auto) 6.6 %; Monocytes # (auto) 1.94 K/uL (0.11-0.59); Monocytes % (auto) 8.2 %; Neutrophils # (auto) 20.14 K/uL (1.4-6.5); Neutrophils % (auto) 84.6 %
[2020-10-23 08:01] LABS: Alanine Aminotransferase 49 U/L (12-78); Aspartate Aminotransferase 19 U/L (15-37); BUN Creatinine Ratio 11.4 (10-20); Blood Urea Nitrogen 37 mg/dl (7-18); Calcium 9.7 mg/dl (8.5-10.1); Carbon Dioxide 21 mmol/L (21-32); Chloride 98 mmol/L (98-107); Creatinine Clr Calc Pharmacy 30.2 ml/min; Est GFR (African American) 23.1; Est GFR (Non-African American) 19.9; Glucose 214 mg/dl (70-99); Potassium 4.1 mmol/L (3.5-5.1); Sodium 133 mmol/L (136-145)
[2020-10-23 08:03] LABS: Albumin Globulin Ratio 0.5 (0.9-2); Alkaline Phosphatase 86 U/L (45-117); Bilirubin,Total 1.3 mg/dl (0.2-1); Ferritin 847.8 ng/ml (8-388); Globulin 5.7 gm/dl (2.5-4.0); Total Protein 8.7 gm/dl (6.4-8.2); Troponin I < 0.015 ng/ml (0-0.045)
[2020-10-23 08:16] LABS: D Dimer 2900 ug/L FEU (0-500)
--- NOTE | 2020-10-23 09:25 | CT Scan Report ---
CT SCAN OF THE ABDOMEN AND PELVIS WITHOUT CONTRAST CLINICAL HISTORY: Diffuse abdominal pain. History of renal failure COMPARISON STUDY: January 2014 TECHNIQUE: CT scan of the abdomen and pelvis was performed from the lung bases to the proximal femurs . Images are reviewed in the axial, sagittal, and coronal planes. IV contrast was not administered fo r this examination. A dose lowering technique was utilized adhering to the principles of ALARA. CT DOSE: 1138.29 mGycm FINDINGS: Lower chest: There are bibasilar parenchymal opacities, likely atelectatic. There are calcified right hilar lymph nodes. There is a calcified right lower lobe granuloma Liver: No focal hepatic masses are visualized in this noncontrast study Gallbladder: Unremarkable. Spleen: Normal in size and attenuation. Pancreas: Unremarkable. Adrenal glands: Unremarkable. Kidneys: No renal, ureteral, or bladder calculi are visualized Bowel: There is evidence of acute sigmoid diverticulitis with a focal perforation. Gas is present wit hin the peridiverticular fat. There is pericolonic infiltration. There are postsurgical changes prese nt in the ileocecal region. There is submucosal fat hypertrophy involving the small bowel. Underlying inflammatory bowel disease may be present. There are dilated proximal small bowel loops with decompr essed distal small bowel loops. The findings are indicative of a small bowel obstruction. There are a ir-fluid levels present within the colon down to the level of the splenic flexure. There is a focal s oft tissue density present on image #[id number] however the submucosal fat is preserved and a focal gary stalsis is favored over an apple core neoplasm. This should be followed up on subsequent studies. In addition there are inflammatory changes in the pericecal region in area of prior abscess as visualize d on a prior study performed in 2013 Peritoneum: There is no evidence of ascites. Vasculature: The abdominal aorta is normal in course and caliber. Adenopathy: None. Pelvic viscera: The bladder, and pelvic viscera are unremarkable. Skeletal structures: No destructive osseous lesions are seen. IMPRESSION: 1. Acute sigmoid diverticulitis with focal perforation. There are suspected small peridiverticular ab scesses which are not large enough for percutaneous drainage. 2. Postsurgical and inflammatory changes within the right lower quadrant adjacent to the cecum and te rminal ileum 3. Distal small bowel wall thickening with submucosal fat hypertrophy. Chronic inflammatory bowel dis ease is suspected. 4. Small bowel obstruction ACT 112: Negative or not required by law. Electronically signed by: Janak Mtz M.D. 10/23/2020 9:23 AM
--- NOTE | 2020-10-23 09:26 | Electrocardiogram Report ---
Test Reason : Blood Pressure : / mmHG Vent. Rate : 111 BPM Atrial Rate : 111 BPM P-R Int : 156 ms QRS Dur : 102 ms QT Int : 352 ms P-R-T Axes : 002 052 008 degrees QTc Int : 478 ms Sinus tachycardia Otherwise normal ECG When compared with ECG of 03-MAR-2014 08:50, Vent. rate has increased BY 52 BPM T wave amplitude has decreased in Lateral leads Confirmed by Gerarod Ritchie ([id number]) on 10/23/2020 9:26:25 AM Referred By: REFERRED SELF Confirmed By:Gerardo Ritchie
[2020-10-23 09:28] LABS: Influenza A virus by PCR Negative (Neg); Influenza B virus by PCR Negative (Neg); RSV by PCR Negative (Neg); SARS CoV2 RNA(COVID-19) InHosp NEGATIVE (Negative)
--- NOTE | 2020-10-23 09:39 | CT Scan Report ---
CT chest wo con CT DOSE: 735.52 mGycm CLINICAL HISTORY: 55 years-old Male with Pt c/o abd pain, ARF. Acute generalized chest and abdominal pain with acute renal failure TECHNIQUE: Multiaxial CT images of the chest were performed without contrast. A dose lowering techni que was utilized adhering to the principles of ALARA. COMPARISON: CT abdomen and pelvis same day, chest CT 06/19/2015 FINDINGS: No large thyroid nodule or adenopathy. There is mild cardiomegaly. Trace pericardial effusi on. Calcified right hilar lymph nodes. Calcified plaque of the thoracic aorta without aneurysm. Study is degraded by respiratory motion artifact. Mild upper lung zone predominant centrilobular emph ysema. There is mild intralobular septal thickening. Linear subpleural consolidative opacities within the dependent lungs and lung bases. 11 mm calcified granuloma of the basal right lower lobe. There i s no pneumothorax or pleural effusion. The previously noted 6 mm solid nodule of the inferior segment lingula is not visualized. No new or suspicious pulmonary nodules. Central airways are patent. No acute process of the imaged upper abdomen. Calcific granulomata of the spleen. Mild hepatic steato sis. Mild gynecomastia. Bones appear intact. No acute fracture. IMPRESSION: 1. Mild intralobular septal thickening may reflect developing pulmonary edema. 2. Linear dependent and bibasilar predominant consolidative opacities suggest atelectasis. 3. Prior granulomatous disease. ACT 112: Negative or not required by law. Electronically signed by: Jim Bradford M.D. 10/23/2020 9:38 AM
--- NOTE | 2020-10-23 10:33 | Surgery Consultation ---
Date of Consultation October 23, 2020 Assessment & Plan (1) Diverticulitis of colon with perforation: Will watch closely, does not require surgery at this time. Keep NPO, on Zosyn. Hopefully will improve in the next 24 hours. as above. NPO/antibiotics/IVF/supportive care. will follow along closely History of Present Illness History of Present Illness 55 y/o male with abdominal pain for several days and increased today. Had fevers, chills at home. Was not able to tolerate broth yesterday, has not eaten in several days. Had loose BM this morning, unable to recall previous to that. H/o perforated appendix requiring IR drain and interval appy at [facility] 6 years ago. Had colonoscopy 6 years ago, scheduled for repeat in Nov 2020. Allergies Allergy/AdvReac Type Severity Reaction Status Date / Time acetaminophen AdvReac Intermediate DEPRESSION Unverified 10/23/20 06:56 adhesive AdvReac Intermediate BANDAIDS,TAPE-REALLY Verified 10/23/20 06:56 ADHERES TO SKIN,TURNS TO MUSH Home Medications Medication Instructions Recorded Confirmed Type cholecalciferol (vitamin D3) 50 mcg PO DAILY 10/23/20 10/23/20 History [Vitamin D3] losartan 25 mg PO DAILY 10/23/20 10/23/20 History Patient History Medical History (Updated 10/23/20 @ 11:31 by Jill Vargas PA-C) HTN (hypertension) Surgical History (Updated 10/23/20 @ 11:24 by Jill Vargas PA-C) History of appendectomy Inguinal hernia s/p repair x 3 Family History (Updated 10/23/20 @ 11:25 by Jill Vargas PA-C) Mother Lung disease Social History (Updated 10/23/20 @ 11:26 by Jill Vargas PA-C) Smoking Status: Former smoker Tobacco Type: Cigarettes packs per day: 1.5; Years Smoked: 30; Smoking End Date: 2013; Do You Dip or Chew Tobacco: No; Tobacco Cessation Education Requested by Patient: No Hx Alcohol Use: Yes Alcohol type: beer Alcohol Intake Frequency: Monthly or Less Hx Substance Use: No Preferred Language: Wallisian marital status: Current Living Situation: Spouse current occupational status: employed 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) Vital Signs (Past 12 Hours) Vital Signs Temp Pulse Pulse Resp BP BP Pulse Ox 10/23/20 10:18 26 H 92 10/23/20 10:01 98 H 23 91 10/23/20 10:00 92 H 16 130/70 92 10/23/20 09:50 91 H 22 90 10/23/20 09:40 90 15 90 10/23/20 09:31 87 19 92 10/23/20 09:30 91 H 22 118/66 93 10/23/20 09:20 90 23 93 10/23/20 09:19 87 26 H 118/66 92 10/23/20 09:10 100 H 94 10/23/20 08:50 88 22 93 10/23/20 08:40 93 H 21 91 10/23/20 08:35 91 10/23/20 08:30 97 H 27 H 92 10/23/20 08:20 102 H 21 92 10/23/20 08:10 106 H 22 87 L 10/23/20 08:01 105 H 22 87 L 10/23/20 08:00 105 H 23 105/67 90 10/23/20 07:50 107 H 32 H 89 L 10/23/20 07:40 36.7 C 110 H 108 H 24 120/77 92 10/23/20 07:35 114 H 17 120/77 96 10/23/20 07:31 122 H 10/23/20 07:10 110 H 27 H 92 10/23/20 07:05 120 H 26 H 94 10/23/20 07:00 109 H 26 H 94 10/23/20 06:50 111 H 29 H 94 10/23/20 06:49 112 H 29 H 94 10/23/20 06:47 38.0 C H 111 H 30 H 139/86 94 10/23/20 06:45 112 H 18 139/86 95 PG Care Time/CCT Total # of Minutes Spent Total Time Spent with Patient: Total time spent is greater than 50% in coordination of care (as documented) at patient's floor/unit and/or counseling patient: Coding Level of Care Code 58922 Inpt Consult Level 4 Diagnoses Diverticulitis of colon with perforation K57.20
--- NOTE | 2020-10-23 11:12 | History & Physical Report ---
Date of Service October 23, 2020 Assessment & Plan (1) Severe sepsis: (2) Diverticulitis of colon with perforation: (3) SBO (small bowel obstruction): (4) Lactic acidosis: This is a 55-year-old male who has significant past medical history of hypertension who presents to ED secondary to abdominal pain x5 days. In ED patient remained hemodynamically stable, although he did meet SIRS criteria. Patient was tachycardic, tachypneic, initial temperature 38.0 and wbc elevated at 23.77k. Blood cultures obtained, initial lactic acid 4.6. Received 3L of IVF to meet 30 mL/kg criteria. Received broad-spectrum IV antibiotics with daptomycin, Levaquin and Zosyn. Lactic acid reduced to 3.6. There was initial concern for Covid which was negative x2. He underwent further testing in correlation with Covid including ESR, CRP, D-dimer and procalcitonin all which were elevated. Further lab abnormalities included BUN 37, creatinine 3.28, D-dimer 2900, ESR 73, CRP 35.7, ferritin 847.8, globulin 5.7, procalcitonin 12.84. CT abdomen pelvis consistent with acute sigmoid diverticulitis with focal perforation and suspected small peridiverticular abscesses not amenable to percutaneous drainage. Distal small bowel wall thickening concerning for chronic inflammatory bowel disease. Small bowel obstruction. Admit to PCU Continue IV Zosyn N.p.o. and bowel rest General surgery consulted -appreciate their input Patient received 3 L IVF bolus in ED -given concern for pulmonary edema on chest CT will hold maintenance fluids for now, monitor urine output and resume maintenance fluids as able Blood cultures pending IV morphine every 4 as needed severe pain, IV acetaminophen every 8 moderate p ain trend lactic acid, procalcitonin (5) Acute kidney failure: Baseline creatinine 0.9-1.0 BUN/creatinine 37 and 3.28 Received 3 L IVF, trend BMP Likely in setting of sepsis, poor p.o. intake, possible ATN Obtain urine studies and consult nephrology Avoid nephrotoxic agents, hold losartan (6) Atelectasis: Patient with tachypnea but normal O2 saturations Atelectasis likely in setting of abdominal pain and poor inspiratory effort Monitor oxygen saturations and encourage incentive spirometry (7) Hyperglycemia: Admitting glucose 214, no prior history of diabetes fasting glucose is unremarkable Obtain A1c Monitor Accu-Chek every 6, will add insulin coverage if consistently > 180 likely elevated in setting of sepsis/stress response (8) Elevated d-dimer: d-dimer measured in ED due to initial concern for covid-19. D-dimer elevated at 2900. Will obtain b/l lower ext Doppler. Unable to obtain CTA chest given renal function. Likely elevated in setting of severe sepsis. No risk factor for DVT/PE. At initial onset of pandemic initially d-dimer was trended to determine need for therapeutic anticoagulation; however this is not the case. Pt IS covid NEGATIVE. Pt is tachypneic with conversation, but saturating okay on room air. Like is likely secondary to the physiologic response of sepsis and CT chest with evidence of developing pulmonary edema due to appropriate sepsis resuscitation. If clinically pt does not improve (9) HTN (hypertension): blood pressure stable hold losartan in setting of DON (10) DVT prophylaxis: SQ Heparin Disposition: admit to PCU Follow up: PCP Dr. Linares upon discharge Pt was seen and examined in collaboration with Dr. Bain, please see addendum History of Present Illness Chief Complaint: Abdominal pain x 5 days. Primary Care Provider: El Linares, This is a 55-year-old male who has significant past medical history of hypertension who presents to ED secondary to abdominal pain x5 days. He started with generalized abdominal pain last Friday. Pain was generalized throughout abdomen, waxed and waned, improved with rest and made worse with movement. Yesterday pain worsened as he got a shooting/sharp abdominal pain located in his right side of abdomen, particularly right lower quadrant. He denies radiation. It came on when he also developed the urge to have a bowel movement. He had difficulty moving bowels and only had a small loose bowel movement. He denies any melena or hematochezia. Prior to that bowel movement he is unsure when his last bowel movement occurred. He has had very little intake over the last 2 to 3 days secondary to abdominal pain. He has never experienced anything like this in the past. In 2013 he did have a acute appendicitis requiring transfer to [place] with IR placement secondary to abscess. He did eventually undergo elective appendectomy laparoscopically. His other surgical history includes 3 inguinal hernia repairs. He also has experienced chills and sweats but no documented fever, shortness of breath that worsens with pain and nausea. He denies any dizziness, lightheadedness, syncope, chest pain, palpitations, cough, hemoptysis, emesis, hematemesis, dysuria, increased urgency or frequency with urination. He generally does feel weaker. Denies loss of taste or smell but generalized decline in appetite. Denies known Covid exposure. Last colonoscopy 2014 with polypectomy and due for repeat 2020. In ED patient remained hemodynamically stable, although he did meet SIRS criteria. Patient was tachycardic, tachypneic, initial temperature 38.0 and wbc elevated at 23.77k. Blood cultures obtained, initial lactic acid 4.6. Received 3L of IVF to meet 30 mL/kg criteria. Received broad-spectrum IV antibiotics with daptomycin, Levaquin and Zosyn. Lactic acid reduced to 3.6. There was initial concern for Covid which was negative x2. He underwent further testing in correlation with Covid including ESR, CRP, D-dimer and procalcitonin all which were elevated. Further lab abnormalities included BUN 37, creatinine 3.28, D-dimer 2900, ESR 73, CRP 35.7, ferritin 847.8, globulin 5.7, procalcitonin 12.84. CT abdomen pelvis consistent with acute sigmoid diverticulitis with focal perforation and suspected small peridiverticular abscesses not amenable to percutaneous drainage. Distal small bowel wall thickening concerning for chronic inflammatory bowel disease. Small bowel obstruction. Allergies Allergy/AdvReac Type Severity Reaction Status Date / Time acetaminophen AdvReac Intermediate DEPRESSION Unverified 10/23/20 06:56 adhesive AdvReac Intermediate BANDAIDS,TAPE-REALLY Verified 10/23/20 06:56 ADHERES TO SKIN,TURNS TO MUSH Home Medications Medication Instructions Recorded Confirmed Type cholecalciferol (vitamin D3) 50 mcg PO DAILY 10/23/20 10/23/20 History [Vitamin D3] losartan 25 mg PO DAILY 10/23/20 10/23/20 History Past Med/Surg History Medical History (Updated 10/23/20 @ 11:31 by Jill Vargas PA-C) HTN (hypertension) Surgical History (Updated 10/23/20 @ 11:24 by Jill Vargas PA-C) History of appendectomy Inguinal hernia s/p repair x 3 Family History (Updated 10/23/20 @ 11:25 by Jill Vargas PA-C) Mother Lung disease Social History (Updated 10/23/20 @ 11:26 by Jill Vargas PA-C) Smoking Status: Former smoker Tobacco Type: Cigarettes packs per day: 1.5; Years Smoked: 30; Second Hand Exposure: No; Hx Alcohol Use: Yes Alcohol type: beer Alcohol Intake Frequency: Monthly or Less Hx Substance Use: No Preferred Language: Spanish Communication Ability: Effective Interpretive Naturalist Required: No Beliefs That Will Affect Care: None marital status: Current Living Situation: Spouse current occupational status: employed 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[employer] Feels Safe at Home: Yes Assistive Devices: Glasses and Oxygen - Continuous Review of Systems Review of Systems: All systems reviewed & are unremarkable except as noted in HPI & below Physical Exam Physical Exam: Constitutional: Acutely ill-appearing male, WD/WN, vitals as above, NAD, sitting up in bed, answers questions appropriately, dyspneic with conversation Head: Normocephalic, Atraumatic Eyes: PERRL, conjunctivae normal, anicteric sclerae ENMT: external ear and nose normal, oropharynx normal Neck: trachea midline, no thyromegaly normal visual inspection Respiratory: Tachypneic, increased respiratory effort, lungs clear to auscultation but shallow breathing secondary to abdominal pain, no wheeze, rales, rhonchi. Increased insp/exp effort, no accessory muscle use Cardiovascular: RRR, no murmur, no edema, no erythema, negative Homans vessels: no JVD or carotid bruit Chest: normal inspection of chest Abdomen: Absent bowel sounds, distended abdomen, firm, normal bowel sounds, guarding right lower quadrant, no rigidity Musculoskeletal: no cyanosis or clubbing, extremities motor strength 5/5 Skin: no rashes, warm and dry normal turgor Neurologic: PERRL, EOMI, accommodation nl, no face palsy, no dysarthria CN's II-XI intact bilaterally and moves all extremities Psychiatric: A+Ox3, euthymic affect Lymphatic: no cervical or axillary lymphadenopathy : deferred Results & Data Results & Data ([facility]) Vital Signs (Past 12 Hours) Vital Signs Temp Pulse Pulse Resp BP BP Pulse Ox 10/23/20 10:18 26 H 92 12/07/20 10:01 98 H 23 91 10/23/20 10:00 92 H 16 130/70 92 10/23/20 09:50 91 H 22 90 10/23/20 09:40 90 15 90 10/23/20 09:31 87 19 92 10/23/20 09:30 91 H 22 118/66 93 10/23/20 09:20 90 23 93 10/23/20 09:19 87 26 H 118/66 92 10/23/20 09:10 100 H 94 10/23/20 08:50 88 22 93 10/23/20 08:40 93 H 21 91 10/23/20 08:35 91 10/23/20 08:30 97 H 27 H 92 10/23/20 08:20 102 H 21 92 10/23/20 08:10 106 H 22 87 L 10/23/20 08:01 105 H 22 87 L 10/23/20 08:00 105 H 23 105/67 90 10/23/20 07:50 107 H 32 H 89 L 10/23/20 07:40 36.7 C 110 H 108 H 24 120/77 92 10/23/20 07:35 114 H 17 120/77 96 10/23/20 07:31 122 H 10/23/20 07:10 110 H 27 H 92 10/23/20 07:05 120 H 26 H 94 10/23/20 07:00 109 H 26 H 94 10/23/20 06:50 111 H 29 H 94 10/23/20 06:49 112 H 29 H 94 10/23/20 06:47 38.0 C H 111 H 30 H 139/86 94 10/23/20 06:45 112 H 18 139/86 95 Laboratory Results Short CBC 10/23/20 10/23/20 10/23/20 Range/Units 06:56 06:56 06:56 WBC 23.77 H (4.8-10.8) K/uL Hgb 16.2 (14.0-18.0) g/dL Hct 47.7 (42-52) % Plt Count 339 (130-400) K/uL Creatinine 3.28 H (0.6-1.4) mg/dl Lactate 4.6 H* (0.4-2.0) mmol/L 10/23/20 Range/Units 08:47 WBC (4.8-10.8) K/uL Hgb (14.0-18.0) g/dL Hct (42-52) % Plt Count (130-400) K/uL Creatinine (0.6-1.4) mg/dl Lactate 3.6 H* (0.4-2.0) mmol/L BMP 10/23/20 06:56 Sodium 133 L Potassium 4.1 Chloride 98 Carbon Dioxide 21 BUN 37 H Creatinine 3.28 H Glucose 214 H Calcium 9.7 Cardiac Enzymes 10/23/20 Range/Units 06:56 Troponin I < 0.015 (0-0.045) ng/ml Liver Function 10/23/20 Range/Units 06:56 Total Bilirubin 1.3 H (0.2-1) mg/dl AST 19 (15-37) U/L ALT 49 (12-78) U/L Alkaline Phosphatase 86 (45-117) U/L Albumin 3.0 L (3.4-5.0) gm/dl Diagnostic Findings Chest CT: IMPRESSION: 1. Mild intralobular septal thickening may reflect developing pulmonary edema. 2. Linear dependent and bibasilar predominant consolidative opacities suggest atelectasis. 3. Prior granulomatous disease. CT abd/pelvis: IMPRESSION: 1. Acute sigmoid diverticulitis with focal perforation. There are suspected small peridiverticular abscesses which are not large enough for percutaneous drainage. 2. Postsurgical and inflammatory changes within the right lower quadrant adjacent to the cecum and terminal ileum 3. Distal small bowel wall thickening with submucosal fat hypertrophy. Chronic inflammatory bowel disease is suspected. 4. Small bowel obstruction CXR: IMPRESSION: Low lung volumes with hypoventilatory changes at the lung bases. Medications Administered Hydromorphone HCl (Hydromorphone Inj 0.5 Mg/0.5 Ml Syr) 0.5 mg IV Q15M PRN PRN Reason: Pain Stop: 11/06/20 06:47 Last Admin: 10/23/20 07:23 Dose: 0.5 mg Documented by: [id number] Discontinued Medications Albuterol (Albuterol Hfa 8 Gm Inhaler) 2 puffs INH NOW ONE Stop: 10/23/20 07:06 Last Admin: 10/23/20 07:22 Dose: 2 puffs Documented by: [id number] Acetaminophen (Ofirmev) 1,000 mg in 100 mls @ 400 mls/hr IV NOW STA Stop: 10/23/20 07:02 Last Infusion: 10/23/20 07:42 Dose: 0 mls/hr Documented by: [id number] Admin: 10/23/20 07:22 Dose: 400 mls/hr Documented by: [id number] Sodium Chloride (Nss 1000ml) 1,000 mls @ 999 mls/hr IV .Q1H1M ONE Stop: 10/23/20 08:49 Last Infusion: 10/23/20 09:27 Dose: 0 mls/hr Documented by: [id number] Admin: 10/23/20 08:25 Dose: 999 mls/hr Documented by: [id number] Piperacillin Sod/Tazobactam Sod (Zosyn) 4.5 gm in 120 mls @ 240 mls/hr IV NOW ONE Stop: 10/23/20 08:18 Last Infusion: 10/23/20 08:54 Dose: 0 mls/hr Documented by: [id number] Admin: 10/23/20 08:24 Dose: 240 mls/hr Documented by: [id number] Levofloxacin/Dextrose (Levaquin/D5w) 750 mg in 150 mls @ 100 mls/hr IV NOW STA Stop: 10/23/20 09:18 Last Infusion: 10/23/20 10:14 Dose: 0 mls/hr Documented by: [id number] Admin: 10/23/20 08:25 Dose: 100 mls/hr Documented by: [id number] Daptomycin 450 mg/ Syringe 9 mls @ 4.5 mls/min IV NOW ONE; Protocol Stop: 10/23/20 07:50 Last Admin: 10/23/20 08:29 Dose: 4.5 mls/min Documented by: [id number] Sodium Chloride (Nss 1000ml) 1,000 mls @ 999 mls/hr IV .Q1H1M ONE Stop: 10/23/20 08:51 Last Infusion: 10/23/20 09:27 Dose: 0 mls/hr Documented by: [id number] Admin: 10/23/20 08:25 Dose: 999 mls/hr Documented by: [id number] Sodium Chloride (Nss 1000ml) 1,000 mls @ 999 mls/hr IV .Q1H1M ONE Stop: 10/23/20 09:07 Last Infusion: 10/23/20 09:27 Dose: 0 mls/hr Documented by: [id number] Admin: 10/23/20 08:25 Dose: 999 mls/hr Documented by: [id number] Ondansetron HCl (Ondansetron Inj 2 Mg/Ml 2 Ml Vial) 4 mg IV NOW STA Stop: 10/23/20 06:49 Last Admin: 10/23/20 07:23 Dose: 4 mg Documented by: [id number] ECG Rate (beats per minute): 111 Rhythm: sinus tachycardia Findings: + prolonged QT (478ms) Code Status & VTE Plan Code Status Full Code VTE Prophylaxis Plan VTE Prophylaxis will be ordered: Yes Supervising Physician Co-Signing Physician Notes I have seen and examined the patient and have discussed the case with the provider above. I agree with the assessment and plan as stated. 55 yo M with sepsis 2/2 acute diverticulitis and a SBO. Reports feeling lower abdominal discomfort since Fri (5 days ago). Reports having chiropractic adjustment for sciatica and felt some lower abdominal soreness after some maneuvers. Was taking prednisone for sciatica, which likely explains elevated blood sugar. He then felt well enough Sat to go run errands around town, but reports an acute worsening of pain that was severe on Friday, described as sharp and on the right side. ROS reveals no chest pain, SOB, vomiting, nausea. Last BM was this morning and was loose and nonbloody per patient. Vitals reflect sepsis with sinus tachycardia, mild tachypnea with movement, BP WNL and temp was 38C but he is now AF. Generally he is mildly ill-appearing and mentating clearly with NAD. Lungs are CTAB, Cardiac exam reveals tachycardia, S1/2 heard with no evidence of m/g/r. No edema present. Extremities are warm and well perfused. Skin is warm and dry. Abdomen is generally protuberant, soft, with significant TTP on the RUQ/RLQ area. No LLQ, LUQ or epigastric tenderness. NPO for bowel rest. Appropriately resuscitated in the ER with IVF and broad spectrum abx. Cont with Zosyn pending blood cultures and clinical improvement in next couple of days. Lactate trended down and is now 2.0. Place Rosas for accurate I/O. Repeat CBC, BMP in am. Monitor closely in PCU for signs of fluid overload after aggressive fluid resuscitation efforts. General Surgery has evaluated him and will cont to monitor him, recommending medical management at this time. Cont NPO status and consider NGT if vomiting occurs overnight. Ruddy,
[2020-10-23 12:31] LABS: Appearance Urine Cloudy (Clear); Bacteria Urine Automated Negative (Negative); Bilirubin Urine Negative (Negative); Blood Urine Trace (Negative); Color Urine Dark Yellow; Epithelial Cell Urine Auto >30 /lpf (0-5); Glucose Urine UA Negative (Negative); Ketones Urine Negative (Negative); Leukocyte Esterase Urine Negative (Negative); Nitrite Urine Negative (Negative); Protein Urine 1+ (Negative); RBC Urine Automated 0-4 /hpf (0-4); Specific Gravity Urine 1.025 (1.000-1.030); Urobilinogen Urine Negative (Negative)
[2020-10-23] MEDS ORDERED: ONDANSETRON INJ 2 MG/ML 2 ML VIAL IV PRN (12:49)
[2020-10-23] MEDS ORDERED: MoRPHine SULFATE 4 MG/ML 1 ML CARP\\VIAL IV PRN (12:49)
[2020-10-23 13:16] LABS: Estimated Average Glucose 126 mg/dl
[2020-10-23 13:23] LABS: BUN Creatinine Ratio 16.5 (10-20); Calcium 8.7 mg/dl (8.5-10.1); Creatinine Clr Calc Pharmacy 43.5 ml/min; Est GFR (African American) 35.8; Est GFR (Non-African American) 30.9
[2020-10-23] MEDS: HEPARIN SOD 5,000 UNIT/0.5 ML VIAL SQ SCH ×2 (15:00→22:03)
[2020-10-23] MEDS: PIPERACILLIN/TAZOBACTAM 4.5 GM in DEXTROSE 5% 100 ML IV SCH ×2 (15:00→22:03)
--- NOTE | 2020-10-23 16:17 | Ultrasound Report ---
BILATERAL LOWER EXTREMITY VENOUS DOPPLER CLINICAL HISTORY: elevated d-dimer COMPARISON STUDY: No previous studies for comparison. TECHNIQUE: Sonography of the deep venous system of the bilateral lower extremities was performed. Co mpression and augmentation were evaluated. FINDINGS: The bilateral common femoral, superficial femoral and popliteal veins were compressible. A ugmentation was normal. Flow was shown within the deep calf vessels. IMPRESSION: No evidence of deep venous thrombus within the bilateral lower extremities. ACT 112: Negative or not required by law. Electronically signed by: Shane Lugo M.D. 10/23/2020 4:16 PM
[2020-10-23] MEDS: ACETAMINOPHEN 1,000 MG/100 ML VIAL IV PRN (19:50)
[2020-10-24] MEDS: HEPARIN SOD 5,000 UNIT/0.5 ML VIAL SQ SCH ×3 (05:53→21:18)
[2020-10-24] MEDS: PIPERACILLIN/TAZOBACTAM 4.5 GM in DEXTROSE 5% 100 ML IV SCH ×3 (05:54→21:16)
[2020-10-24] MEDS: ACETAMINOPHEN 1,000 MG/100 ML VIAL IV PRN (07:38)
[2020-10-24] MEDS: LACTATED RINGER'S 1,000 ML IV SCH ×2 (07:59→14:21)
[2020-10-24 08:30] LABS: Basophils # (auto) 0.01 K/uL (0-0.2); Basophils % (auto) 0.1 %; Eosinophils # (auto) 0.04 K/uL (0-0.5); Eosinophils % (auto) 0.2 %; Hemoglobin 13.3 g/dL (14.0-18.0); Immature Granulocytes # (auto) 0.08 K/uL (0.00-0.02); Immature Granulocytes % (auto) 0.4 %; Lymphocytes # (auto) 1.95 K/uL (1.2-3.4); Mean Corpuscular Hgb Conc 33.3 g/dL (32-36); Mean Corpuscular Volume 90.3 fL (80-100); Mean Platelet Volume 10.2 fL (7.4-10.4); Monocytes # (auto) 1.41 K/uL (0.11-0.59); Monocytes % (auto) 7.2 %; Neutrophils % (auto) 82.1 %; Platelet Count 249 K/uL (130-400); RDW Standard Deviation 46.5 fL (36.4-46.3); Red Blood Count 4.43 M/uL (4.7-6.1); White Blood Count 19.59 K/uL (4.8-10.8)
--- NOTE | 2020-10-24 08:35 | Surgery Progress Note ---
Date of Service October 24, 2020 Assessment & Plan (1) Diverticulitis of colon with perforation: continue IV abx, keep NPO except ice, will resume IVF consider repeating CT in 1-2 days depending on progress seen with Dr. Olivia labs pending as above. wbc slightly improved. clinically slightly improved. repeat CT scan tomorrow or . repeat wbc. keep npo. Admission and Anticipated Discharge Date Admission Date: October 23, 2020 Subjective feels about the same Physical Exam Gastrointestinal (Abdomen): Inspection/Auscultation: + abdomen distended (mild) Percussion/Palpation: + abdomen tender and abdomen soft; no guarding Results & Data ([facility]) Vital Signs (Past 12 Hours) Vital Signs Temp Pulse Resp BP Pulse Ox 10/24/20 07:24 37.1 C 103 H 18 135/84 93 10/24/20 03:43 36.9 C 101 H 18 143/81 H 95 10/23/20 23:42 36.9 C 103 H 18 133/81 96 PG Care Time/CCT Total # of Minutes Spent Total Time Spent with Patient: Total time spent is greater than 50% in coordination of care (as documented) at patient's floor/unit and/or counseling patient: Coding Level of Care Code 61248 Subseq Hosp Care Lvl 1 Diagnoses Diverticulitis of colon with perforation K57.20
[2020-10-24 08:42] LABS: Albumin Level 2.3 gm/dl (3.4-5.0); BUN Creatinine Ratio 25.6 (10-20); Calcium 9.6 mg/dl (8.5-10.1); Creatinine Clr Calc Pharmacy 67.7 ml/min; Est GFR (African American) 60.4; Est GFR (Non-African American) 52.1; Magnesium 2.3 mg/dl (1.8-2.4); Potassium 4.1 mmol/L (3.5-5.1)
[2020-10-24 09:01] LABS: Albumin Globulin Ratio 0.5 (0.9-2); Bilirubin,Total 0.6 mg/dl (0.2-1); Total Protein 7.3 gm/dl (6.4-8.2)
--- NOTE | 2020-10-24 13:26 | Hospitalist Progress Note ---
Date of Service October 24, 2020 Assessment & Plan (1) Severe sepsis: Resuscitated from a sepsis standpoint yesterday afternoon. He is improved clinically and white blood cell count is improving. Abdomen is inner layer scrubber tender and distended, and he continues on broad-spectrum antibiotics. Small bowel obstruction is still present. Continue IV fluids while patient n.p.o. (2) Diverticulitis of colon with perforation: Continue Zosyn. Per general surgery continue conservative management. (3) SBO (small bowel obstruction): No nausea or vomiting present. He is doing well with ice chips. Continue conservative management with bowel rest. Stopped morphine and will give scheduled Tylenol intravenously with as needed tramadol for breakthrough pain. (4) Hypoxemia: Mild oxygen requirement, atelectasis on CXR and likely in setting of splinting from abdominal pain. Also monitoring closely for fluid overload after aggressive/appropriate sepsis resuscitation yesterday. (5) Lactic acidosis: resolved with sepsis resuscitation (6) Acute kidney failure: Normal baseline. No evidence of glomerulonephritis or UTI. Nephro following. Continue to trend daily BMP in the next coming days. Losartan on hold (7) Hyperglycemia: Hypoxemia recent course of prednisone causing initial hyperglycemia, now resolved without insulin. No need for further blood sugar checks at this time. This is resolved. (8) HTN (hypertension): blood pressure stable hold losartan in setting of renal failure (9) DVT prophylaxis: SQ Heparin Full Code Dispo-cont PCU monitoring. Maile Fox DO [facility] Hospitalist Admission and Anticipated Discharge Date Admission Date: October 23, 2020 Subjective cc: Sepsis secondary to complicated diverticulitis, small bowel obstruction The patient is feeling better since yesterday, denies shortness of breath, denies chest pain. He does report some persistent pain in his right abdomen, and reports morphine was too heavy for him and did not last long enough. Intravenous Tylenol also is working well but did not last long enough. Rosas catheter in place draining 500 cc of dark yellow urine. Patient denies shortness of breath but is still on 2 L nasal cannula. Lungs are clear to auscultation on exam.. Review of Systems Review of Systems: All systems reviewed & are unremarkable except as noted in Subjective Physical Exam Physical Exam: CONSTITUTIONAL: WNWD, vitals as above, generally well- appearing EYES: normal conjunctivae, no scleral icterus ENT: external ear and nose normal, oropharynx clear, MMM RESPIRATORY: clear to auscultation bilaterally, no crackles, rales or wheezes, normal respiratory effort CARDIOVASCULAR: regular rate and rhythm, S1 and 2 heard without murmurs, gallops or rubs, no JVD, no peripheral edema GASTROINTESTINAL: distended, protuberant, TTP on right side of abdomen, no fluid wave MUSCULOSKELETAL: strength 5/5 throughout, head is normocephalic and atraumatic, SKIN: warm and dry NEUROLOGIC: No facial palsy, no dysarthria. CN 2-12 grossly intact, normal cognition, normal speech, no gross focal deficits. PSYCHIATRIC: alert cooperative and oriented to person, place and time. Results & Data Results & Data ([facility]) Vital Signs (Past 12 Hours) Vital Signs Temp Pulse Resp BP Pulse Ox 10/24/20 11:48 37.0 C 97 H 18 125/75 97 10/24/20 07:24 37.1 C 103 H 18 135/84 93 10/24/20 03:43 36.9 C 101 H 18 143/81 H 95 Laboratory Results Short CBC 10/24/20 Range/Units 07:10 WBC 19.59 H (4.8-10.8) K/uL Hgb 13.3 L (14.0-18.0) g/dL Hct 40.0 L (42-52) % Plt Count 249 (130-400) K/uL BMP 10/23/20 10/24/20 12:58 07:10 Sodium 137 139 Potassium 4.0 4.1 Chloride 102 105 Carbon Dioxide 27 27 BUN 38 H 38 H Creatinine 2.28 H D 1.48 H D Glucose 125 H 116 H Calcium 8.7 9.6 Liver Function 10/24/20 Range/Units 07:10 Total Bilirubin 0.6 D (0.2-1) mg/dl AST 33 (15-37) U/L ALT 52 (12-78) U/L Alkaline Phosphatase 72 (45-117) U/L Albumin 2.3 L (3.4-5.0) gm/dl Medications Administered Current Inpatient Medications Heparin Sodium (Porcine) (Heparin Sod 5,000 Unit/0.5 Ml Vial) 5,000 units SQ Q8 SONAL Stop: 11/22/20 13:59 Last Admin: 10/24/20 05:53 Dose: 5,000 units Documented by: Acetaminophen (Ofirmev) 1,000 mg in 100 mls @ 400 mls/hr IV Q8H PRN PRN Reason: moderate pain Stop: 10/26/20 12:48 Last Infusion: 10/24/20 07:56 Dose: Infused Documented by: Piperacillin Sod/Tazobactam (Sod 4.5 gm/ Dextrose) 120 mls @ 30 mls/hr IV Q8 S ; Protocol Stop: 11/02/20 13:59 Last Infusion: 10/24/20 10:35 Dose: Infused Documented by: Lactated Ringer's (Lr) 1,000 mls @ 150 mls/hr IV .Q6H40M SONAL Stop: 11/23/20 07:29 Last Admin: 10/24/20 07:59 Dose: 150 mls/hr Documented by: Miscellaneous Information (Piperacill/Tazobac Consult Active) 1 ea N/A UD PRN PRN Reason: Consult Stop: 11/22/20 12:48 Morphine Sulfate (Morphine Sulfate 4 Mg/Ml 1 Ml Carp\Vial) 4 mg IV Q4H PRN PRN Reason: severe pain Stop: 11/06/20 12:48 Last Admin: 10/24/20 03:08 Dose: 4 mg Documented by: Ondansetron HCl (Ondansetron Inj 2 Mg/Ml 2 Ml Vial) 4 mg IV Q6H PRN PRN Reason: Nausea Stop: 11/22/20 12:48 (1) Acute kidney failure Acute renal failure type: unspecified Qualified Code(s): N17.9 - Acute kidney failure, unspecified (2) Diverticulitis of colon with perforation Diverticulitis bleeding: unspecified bleeding status Qualified Code(s): K57.20 - Diverticulitis of large intestine with perforation and abscess without bleeding
[2020-10-24] MEDS: ACETAMINOPHEN 1,000 MG/100 ML VIAL IV SCH ×2 (14:17→21:17)
--- NOTE | 2020-10-24 14:49 | Nephrology Consultation ---
Date of Consultation October 24, 2020 Assessment & Plan (1) Acute kidney failure: Stage III nonoliguric acute kidney injury with presenting creatinine 3.3 on October 23 and trending steadily down to 1.5 today. Baseline creatinine 1.0 as recently as September 2020. 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 Clinica lly improving. No evidence of GN or UTI. He has had some tachycardia in the 100s but no real extremes of blood pressure or pulse. He is on 2 L of oxygen currently. He remains n.p.o. and is for conservative surgical management. He was restarted on lactated Ringer's at 150 mL hourly this morning, lowered to 100 mL hourly this pm. Blood chemistries and volume status essentially acceptable Daily basic metabolic panel Strict intake and outtake Reasonable to continue lactated Ringer's at current rate provided no increasing oxygen requirements or worsening breathing -cont to hold ARB -no NSAIDS Present on Admission?: Yes (2) Diverticulitis of colon with perforation: On Zosyn and currently for conservative management. Surgery following. Per primary service and surgery Present on Admission?: Yes History of Present Illness Reason for Consultation: Acute renal failure in the setting of sepsis Requesting Physician: Dr. Fox Attending Physician: Maile Fox, DO History of Present Illness 55-year-old male whom I am asked to see for acute renal failure after he was admitted on October 23 with severe sepsis from diverticulitis with focal perforation and suspected small periDiverticular abscesses. Notable history includes hypertension on outpatient losartan, hyperlipidemia, elevated PSA hydrocele with recent acute PCP eval for left sciatica treated with course of prednisone and ibuprofen. 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 General surgery has been following patient with conservative management so far and aggressive fluid resuscitation. His presenting creatinine was 3.3 on October 23, down to 2.3 yesterday and 1.5 today. Baseline creatinine is 1.0, most recently September 2020. He takes losartan 25 mg daily as an outpatient. denies sob at rest; + exertiona; and abdomen is still quite sore Allergies Allergy/AdvReac Type Severity Reaction Status Date / Time acetaminophen AdvReac Intermediate DEPRESSION Unverified 10/23/20 06:56 adhesive AdvReac Intermediate BANDAIDS,TAPE-REALLY Verified 10/23/20 06:56 ADHERES TO SKIN,TURNS TO MUSH Home Medications Medication Instructions Recorded Confirmed Type cholecalciferol (vitamin D3) 50 mcg PO DAILY 10/23/20 10/23/20 History [Vitamin D3] losartan 25 mg PO DAILY 10/23/20 10/23/20 History Patient History Medical History (Updated 10/24/20 @ 18:51 by Winifred Castandea MD, PhD) HTN (hypertension) Sciatica of left side Surgical History (Updated 10/23/20 @ 11:24 by Jill Vargas PA-C) History of appendectomy Inguinal hernia s/p repair x 3 Family History (Updated 10/23/20 @ 11:25 by Jill Vargas PA-C) Mother Lung disease Social History (Updated 10/23/20 @ 11:26 by Jill Vargas PA-C) Smoking Status: Former smoker Tobacco Type: Cigarettes packs per day: 1.5; Years Smoked: 30; Second Hand Exposure: No; Hx Alcohol Use: Yes Alcohol type: beer Alcohol Intake Frequency: Monthly or Less Hx Substance Use: No Preferred Language: Romanian Communication Ability: Effective 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: No Beliefs That Will Affect Care: None marital status: Current Living Situation: Spouse current occupational status: employed 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 Feels Safe at Home: Yes Assistive Devices: Oxygen - Continuous Review of Systems Review of Systems: All systems reviewed & are unremarkable except as noted in HPI & below Cardiovascular: + dyspnea on exertion; no chest pain, no dyspnea, no orthopnea and no edema Gastrointestinal: as per Subjective / HPI, + abdominal pain (R>L UQ), + bloating and + nausea; no heartburn and no vomiting Integumentary: no rash Physical Exam Constitutional: well developed and well nourished; no acute distress Eyes: EOM intact bilaterally ENMT: Ears: no external ear abnormality Nose: no external nose abnormality Mouth: + dry oral mucous membranes Neck: no nuchal rigidity Respiratory: normal respiratory effort and able to speak in complete sentences; no labored breathing, no cough and expiratory phase not prolonged Auscultation: + diminished lung sounds (on 2LNC; marked ) Cardiovascular: Rate/Rhythm: regular rate and regular rhythm Heart Sounds: + murmur Extremities: normal capillary refill; no edema Gastrointestinal (Abdomen): Inspection/Auscultation: + abdomen distended and + hypoactive bowel sounds Percussion/Palpation: + abdomen tender, + guarding and abdomen soft Musculoskeletal: Extremities: strength 5/5 throughout Skin: no rashes, warm and dry Neurologic: cid, fluent speech, no tremor Psychiatric: A+Ox3, euthymic affect Genitourinary: michaud w/ ample light yellow urine Results & Data ([facility]) Vital Signs (Past 12 Hours) Vital Signs Temp Pulse Resp BP Pulse Ox 10/24/20 11:48 37.0 C 97 H 18 125/75 97 10/24/20 07:24 37.1 C 103 H 18 135/84 93 10/24/20 03:43 36.9 C 101 H 18 143/81 H 95 Laboratory Results 10/24/20 07:10 10/24/20 07:10 Admission urinalysis: Specific gravity 1025 dark yellow cloudy urine pH 5, protein 1+, trace blood, rater than 3050 ileal cells, 5-10 white cells, no bacteria, all other indices negative Blood cultures no growth to date Diagnostic Findings CT chest abdomen pelvis Noncon from admission Study is degraded by respiratory motion artifact. Mild upper lung zone predominant centrilobular emphysema. There is mild intralobular septal thickening. Linear subpleural consolidative opacities within the dependent lungs and lung bases. 11 mm calcified granuloma of the basal right lower lobe. There is no pneumothorax or pleural effusion. The previously noted 6 mm solid nodule of the inferior segment lingula is not visualized. No new or suspicious pul monary nodules. Central airways are patent. No acute process of the imaged upper abdomen. Calcific granulomata of the spleen. Mild hepatic steatosis. Mild gynecomastia. Bones appear intact. No acute fracture. IMPRESSION: 1. Mild intralobular septal thickening may reflect developing pulmonary edema. 2. Linear dependent and bibasilar predominant consolidative opacities suggest atelectasis. 3. Prior granulomatous disease. Lower chest: There are bibasilar parenchymal opacities, likely atelectatic. T here are calcified right hilar lymph nodes. There is a calcified right lower lobe granuloma Liver: No focal hepatic masses are visualized in this noncontrast study Gallbladder: Unremarkable. Spleen: Normal in size and attenuation. Pancreas: Unremarkable. Adrenal glands: Unremarkable. Kidneys: No renal, ureteral, or bladder calculi are visualized Bowel: There is evidence of acute sigmoid diverticulitis with a focal perforation. Gas is present within the peridiverticular fat. There is pericolonic infiltration. There are postsurgical changes present in the ileocecal region. There is submucosal fat hypertrophy involving the small bowel. Underlying inflammatory bowel disease may be present. There are dilated proximal small bowel loops with decompressed distal small bowel loops. The findings are indicative of a small bowel obstruction. There are air-fluid levels present within the colon down to the level of the splenic flexure. There is a focal soft tissue density present on image #[id number] however the submucosal fat is preserved and a focal peristalsis is favored over an apple core neoplasm. This should be followed up on subsequent studies. In addition there are inflammatory changes in the pericecal region in area of prior abscess as visualized on a prior study performed in 2014 Peritoneum: There is no evidence of ascites. Vasculature: The abdominal aorta is normal in course and caliber. Adenopathy: None. Pelvic viscera: The bladder, and pelvic viscera are unremarkable. Skeletal structures: No destructive osseous lesions are seen. IMPRESSION: 1. Acute sigmoid diverticulitis with focal perforation. There are suspected small peridiverticular abscesses which are not large enough for percutaneous drainage. 2. Postsurgical and inflammatory changes within the right lower quadrant adjacent to the cecum and terminal ileum 3. Distal small bowel wall thickening with submucosal fat hypertrophy. Chronic inflammatory bowel disease is suspected. 4. Small bowel obstruction Bilateral lower extremity venous Dopplers negative for DVT (1) Acute kidney failure Acute renal failure type: unspecified Qualified Code(s): N17.9 - Acute kidney failure, unspecified (2) Diverticulitis of colon with perforation Diverticulitis bleeding: unspecified bleeding status Qualified Code(s): K57.20 - Diverticulitis of large intestine with perforation and abscess without bleeding
--- NOTE | 2020-10-24 14:58 | Electrocardiogram Report ---
Test Reason : Blood Pressure : / mmHG Vent. Rate : 098 BPM Atrial Rate : 098 BPM P-R Int : 162 ms QRS Dur : 108 ms QT Int : 322 ms P-R-T Axes : 032 032 044 degrees QTc Int : 411 ms Normal sinus rhythm Nonspecific T wave abnormality Abnormal ECG When compared with ECG of 23-OCT-2020 06:51, No significant change was found Confirmed by Gerardo Ritchie ([id number]) on 10/24/2020 2:58:03 PM Referred By: REFERRED SELF Confirmed By:Gerardo Ritchie
[2020-10-24] MEDS: traMADol HCL 50 MG TABLET PO PRN (19:32)
[2020-10-25] MEDS: LACTATED RINGER'S 1,000 ML IV SCH ×3 (01:06→23:37)
[2020-10-25] MEDS: traMADol HCL 50 MG TABLET PO PRN ×3 (02:45→20:17)
[2020-10-25] MEDS: ACETAMINOPHEN 1,000 MG/100 ML VIAL IV SCH ×3 (06:10→20:58)
[2020-10-25] MEDS: HEPARIN SOD 5,000 UNIT/0.5 ML VIAL SQ SCH ×3 (06:18→20:59)
[2020-10-25] MEDS: PIPERACILLIN/TAZOBACTAM 4.5 GM in DEXTROSE 5% 100 ML IV SCH ×3 (06:27→23:36)
[2020-10-25 07:46] LABS: Basophils # (auto) 0.01 K/uL (0-0.2); Basophils % (auto) 0.1 %; Eosinophils # (auto) 0.05 K/uL (0-0.5); Eosinophils % (auto) 0.3 %; Hemoglobin 12.5 g/dL (14.0-18.0); Immature Granulocytes # (auto) 0.04 K/uL (0.00-0.02); Immature Granulocytes % (auto) 0.3 %; Lymphocytes # (auto) 1.92 K/uL (1.2-3.4); Lymphocytes % (auto) 12.3 %; Mean Corpuscular Hemoglobin 30.1 pg (25-34); Mean Corpuscular Hgb Conc 32.9 g/dL (32-36); Mean Corpuscular Volume 91.6 fL (80-100); Monocytes # (auto) 1.04 K/uL (0.11-0.59); Monocytes % (auto) 6.7 %; Neutrophils # (auto) 12.54 K/uL (1.4-6.5); Neutrophils % (auto) 80.3 %; Platelet Count 258 K/uL (130-400); RDW Coefficient of Variation 14.3 % (11.5-14.5); RDW Standard Deviation 48.3 fL (36.4-46.3); Red Blood Count 4.15 M/uL (4.7-6.1)
[2020-10-25 08:16] LABS: BUN Creatinine Ratio 29.8 (10-20); Calcium 9.4 mg/dl (8.5-10.1); Creatinine Clr Calc Pharmacy 90.8 ml/min; Est GFR (African American) 86.5; Est GFR (Non-African American) 74.6; Potassium 3.9 mmol/L (3.5-5.1)
--- NOTE | 2020-10-25 08:55 | Nephrology Progress Note ---
Date of Service October 25, 2020 Assessment & Plan (1) Acute kidney failure: Stage III nonoliguric acute kidney injury with presenting creatinine 3.3 on October 23 and trending steadily down to 1.1 today. Baseline creatinine 1.0 as recently as September 2020. 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 Clinically improving. No evidence of GN or UTI. He has had some tachycardia in the 100s but no real extremes of blood pressure or pulse. He is on 2 L of oxygen currently alternating w/ RA which is what he was on when I saw him. diet advanced to clears today and is for conservative surgical management. He r emains on lactated Ringer's at 100 mL hourly. Blood chemistries and volume status essentially acceptable Daily basic metabolic panel Strict intake and outtake Reasonable to continue lactated Ringer's at current rate provided no increasing oxygen requirements or worsening breathing -cont to hold ARB -no NSAIDS -ok from renal standpoint to remove michaud WILL follow peripherally; D/C summary updated with the following recommendations: -due to severe acute kidney injury, recommend follow up appointment in kidney clinic with any physician or PA in our group approximately 4-6 weeks after discharge -resume losartan at discharge or at follow up visit with PCP -needs to have bmp, uacm, prot/creat checked at follow up visit with PCP or within a week of discharge, whichever is first -minimize and for next 3 months avoid NSAID use (2) Diverticulitis of colon with perforation: On Zosyn and currently for conservative management. Surgery following. Per primary service and surgery Admission and Anticipated Discharge Date Admission Date: October 23, 2020 Subjective seen on rounds approx 1240; feels better but still weak; still abd twinges at times of pain; getting clears; michaud uncomfortable; on RA when I saw him Review of Systems Review of Systems: All systems reviewed & are unremarkable except as noted in HPI & below Physical Exam Constitutional: well developed and well nourished; no acute distress Eyes: EOM intact bilaterally ENMT: Ears: no external ear abnormality Nose: no external nose abnormality Mouth: + dry oral mucous membranes Neck: no nuchal rigidity Respiratory: normal respiratory effort and able to speak in complete sentences; no labored breathing, no cough and expiratory phase not prolonged Auscultation: + diminished lung sounds (on RA) Cardiovascular: Rate/Rhythm: regular rate and regular rhythm Heart Sounds: + murmur Extremities: normal capillary refill; no edema Gastrointestinal (Abdomen): Inspection/Auscultation: + abdomen distended and + hypoactive bowel sounds Percussion/Palpation: + abdomen tender, + guarding and abdomen soft Musculoskeletal: Extremities: strength 5/5 throughout Skin: no rashes, warm and dry Neurologic: cid, fluent speech Psychiatric: A+Ox3, euthymic affect Genitourinary: michaud w/ ample urine Results & Data ([facility]) Vital Signs (Past 12 Hours) Vital Signs Temp Pulse Resp BP Pulse Ox 10/25/20 08:23 36.5 C 84 18 144/82 H 94 10/25/20 02:38 37.1 C 90 17 150/81 H 95 10/24/20 23:32 36.7 C 94 H 18 154/87 H 94 Laboratory Results 10/25/20 07:08 10/25/20 07:08 (1) Acute kidney failure Acute renal failure type: unspecified Qualified Code(s): N17.9 - Acute kidney failure, unspecified (2) Diverticulitis of colon with perforation Diverticulitis bleeding: unspecified bleeding status Qualified Code(s): K57.20 - Diverticulitis of large intestine with perforation and abscess without bleeding
--- NOTE | 2020-10-25 09:48 | Surgery Progress Note ---
Date of Service October 25, 2020 Assessment & Plan (1) Diverticulitis of colon with perforation: Patient feeling mild improvement in his symptoms WBC down to 15.6 from 19, afebrile Continue IV abx Patient is still distended and tender to palpation in RLQ Keep NPO with ice chips for now along with IVF Will discuss consideration and timing of repeat CT scan with Dr. Olivia as above. pt seen. feeling significantly better. "thirsty" requesting liquids. wbc continues to improve. much less tender today. continue IV antibiotics. will start clears. will continue to follow along. Admission and Anticipated Discharge Date Admission Date: October 23, 2020 Subjective Patient states he is feeling somewhat better today. Says he is breathing better. Denies n/v. Still with some R sided abdominal pain. No BM yet, but some flatus. Overall denies much of an appetite. Physical Exam Physical Exam: awake/alert Respiratory: saturating well on supplemental O2 Gastrointestinal (Abdomen): Inspection/Auscultation: + abdomen distended Percussion/Palpation: + abdomen tender (RLQ) Results & Data ([facility]) Vital Signs (Past 12 Hours) Vital Signs Temp Pulse Resp BP Pulse Ox 10/25/20 08:23 36.5 C 84 18 144/82 H 94 10/25/20 02:38 37.1 C 90 17 150/81 H 95 10/24/20 23:32 36.7 C 94 H 18 154/87 H 94 PG Care Time/CCT Total # of Minutes Spent Total Time Spent with Patient: Total time spent is greater than 50% in coordination of care (as documented) at patient's floor/unit and/or counseling patient: Coding Level of Care Code 71534 Subseq Hosp Care Lvl 2 Diagnoses Diverticulitis of colon with perforation K57.20 Diverticulitis bleeding: unspecified bleeding status (1) Diverticulitis of colon with perforation Diverticulitis bleeding: unspecified bleeding status Qualified Code(s): K57.20 - Diverticulitis of large intestine with perforation and abscess without bleeding
--- NOTE | 2020-10-25 14:26 | Hospitalist Progress Note ---
Date of Service October 25, 2020 Assessment & Plan (1) Severe sepsis: Secondary to diverticulitis of the colon with perforation Resuscitated with intravenous fluid and other measures. Has been getting intravenous Zosyn Clinically much better with improved white count and without any fever and/or chills. (2) Diverticulitis of colon with perforation: Continue Zosyn. Per general surgery continue conservative management. Abdomen remains distended-bowel has not moved but he has been passing gas (3) SBO (small bowel obstruction): No nausea or vomiting present. Remains n.p.o. and getting intravenous fluid Clinically a little bit better (4) Hypoxemia: Mild oxygen requirement, atelectasis on CXR and likely in setting of splinting from abdominal pain. Also monitoring closely for fluid overload after aggressive/appropriate sepsis resuscitation yesterday. (5) Lactic acidosis: resolved with sepsis resuscitation (6) Acute kidney failure: Normal baseline. No evidence of glomerulonephritis or UTI. Nephro following. Continue to trend daily BMP in the next coming days. Losartan on hold Creatinine has been normalized (7) Hyperglycemia: Hypoxemia recent course of prednisone causing initial hyperglycemia, now resolved without insulin. No need for further blood sugar checks at this time. This is resolved. (8) HTN (hypertension): blood pressure stable hold losartan in setting of renal failure (9) DVT prophylaxis: SQ Heparin Full Code Dispo-cont PCU monitoring. Admission and Anticipated Discharge Date Admission Date: October 23, 2020 Subjective 10/25/2020 The patient was seen and examined in telemetry unit He has been feeling a little bit better and his abdominal distention and discomfort are better Has not moved bowels yet but has been passing gas Denies any fever and/or chills, no nausea and or vomiting Review of Systems Review of Systems: All systems reviewed and are unremarkable except as noted b elow Gastrointestinal: + bloating; no abdominal pain, no nausea and no vomiting Physical Exam Physical Exam: Sitting at the edge of the bed with discomfort secondary to bloating with abdominal distention Constitutional: well developed, well nourished, + ill appearing and + obese Eyes: PERRL, conjunctivae normal, anicteric sclerae ENMT: external ear and nose normal, oropharynx normal Neck: trachea midline, no thyromegaly Respiratory: no respiratory distress Auscultation: lungs clear to auscultation bilaterally Cardiovascular: Rate/Rhythm: regular rate and regular rhythm Heart Sounds: no murmur Extremities: + edema (Trace edema bilaterally) Gastrointestinal (Abdomen): Inspection/Auscultation: + abdomen distended and + hypoactive bowel sounds Percussion/Palpation: + abdomen tender and + abdomen rigid; + abdomen not soft Musculoskeletal: No acute arthritis in any joint Neurologic: Alert, awake and oriented x3 Psychiatric: A+Ox3, euthymic affect Results & Data Results & Data ([facility]) Vital Signs (Past 12 Hours) Vital Signs Temp Pulse Resp BP Pulse Ox 10/25/20 11:45 36.7 C 88 18 158/95 H 97 10/25/20 08:23 36.5 C 84 18 144/82 H 94 10/25/20 02:38 37.1 C 90 17 150/81 H 95 Laboratory Results Short CBC 10/25/20 Range/Units 07:08 WBC 15.60 H (4.8-10.8) K/uL Hgb 12.5 L (14.0-18.0) g/dL Hct 38.0 L (42-52) % Plt Count 258 (130-400) K/uL [facility] 10/25/20 07:08 Sodium 140 Potassium 3.9 Chloride 105 Carbon Dioxide 28 BUN 33 H Creatinine 1.10 D Glucose 108 H Calcium 9.4 Medications Administered Current Inpatient Medications Heparin Sodium (Porcine) (Heparin Sod 5,000 Unit/0.5 Ml Vial) 5,000 units SQ Q8 [facility] Stop: 11/22/20 13:59 Last Admin: 10/25/20 13:41 Dose: 5,000 units Documented by: Piperacillin Sod/Tazobactam (Sod 4.5 gm/ Dextrose) 120 mls @ 30 mls/hr IV Q8 [facility]; Protocol Stop: 11/02/20 13:59 Last Admin: 10/25/20 14:15 Dose: 30 mls/hr Documented by: Lactated Ringer's (Lr) 1,000 mls @ 100 mls/hr IV .Q10H [facility] Stop: 11/23/20 07:29 Last Admin: 10/25/20 11:23 Dose: 100 mls/hr Documented by: Acetaminophen (Ofirmev) 1,000 mg in 100 mls @ 400 mls/hr IV Q8 [facility] Stop: 10/27/20 14:29 Last Infusion: 10/25/20 13:55 Dose: Infused Documented by: Miscellaneous Information (Piperacill/Tazobac Consult Active) 1 ea N/A UD PRN PRN Reason: Consult Stop: 11/22/20 12:48 Ondansetron HCl (Ondansetron Inj 2 Mg/Ml 2 Ml Vial) 4 mg IV Q6H PRN PRN Reason: Nausea Stop: 11/22/20 12:48 Tramadol HCl (Tramadol Hcl 50 Mg Tablet) 50 mg PO Q4H PRN PRN Reason: breakthrough pain Stop: 11/23/20 13:54 Last Admin: 10/25/20 13:36 Dose: 50 mg Documented by: (1) Diverticulitis of colon with perforation Diverticulitis bleeding: unspecified bleeding status Qualified Code(s): K57.20 - Diverticulitis of large intestine with perforation and abscess without bleeding (2) Acute kidney failure Acute renal failure type: unspecified Qualified Code(s): N17.9 - Acute kidney failure, unspecified
[2020-10-25] MEDS ORDERED: ALUMINUM/MAGNESIUM/SIMETH (MAALOX MAX) 30 ML UDC PO PRN (20:24)
[2020-10-26] MEDS: traMADol HCL 50 MG TABLET PO PRN ×2 (02:58→11:59)
[2020-10-26] MEDS: ACETAMINOPHEN 1,000 MG/100 ML VIAL IV SCH (05:24)
[2020-10-26] MEDS: HEPARIN SOD 5,000 UNIT/0.5 ML VIAL SQ SCH ×2 (05:45→14:32)
[2020-10-26] MEDS: PIPERACILLIN/TAZOBACTAM 4.5 GM in DEXTROSE 5% 100 ML IV SCH ×2 (05:45→14:53)
[2020-10-26] MEDS ORDERED: FAMOTIDINE 20 MG TAB PO STA (06:09)
[2020-10-26] MEDS ORDERED: FAMOTIDINE 20 MG in SYRINGE 3 ML IV ONE (06:15)
[2020-10-26 07:15] LABS: Basophils # (auto) 0.01 K/uL (0-0.2); Basophils % (auto) 0.1 %; Eosinophils # (auto) 0.09 K/uL (0-0.5); Eosinophils % (auto) 0.7 %; Hematocrit (blood only) 38.6 % (42-52); Hemoglobin 12.5 g/dL (14.0-18.0); Immature Granulocytes # (auto) 0.04 K/uL (0.00-0.02); Immature Granulocytes % (auto) 0.3 %; Lymphocytes # (auto) 1.72 K/uL (1.2-3.4); Lymphocytes % (auto) 13.8 %; Mean Corpuscular Hemoglobin 29.9 pg (25-34); Mean Corpuscular Hgb Conc 32.4 g/dL (32-36); Mean Corpuscular Volume 92.3 fL (80-100); Mean Platelet Volume 9.7 fL (7.4-10.4); Monocytes # (auto) 0.78 K/uL (0.11-0.59); Monocytes % (auto) 6.2 %; Neutrophils # (auto) 9.86 K/uL (1.4-6.5); Neutrophils % (auto) 78.9 %; Platelet Count 289 K/uL (130-400); RDW Coefficient of Variation 14.4 % (11.5-14.5); RDW Standard Deviation 48.9 fL (36.4-46.3); Red Blood Count 4.18 M/uL (4.7-6.1)
[2020-10-26 07:51] LABS: BUN Creatinine Ratio 27.3 (10-20); Calcium 9.4 mg/dl (8.5-10.1); Creatinine Clr Calc Pharmacy 117.3 ml/min; Est GFR (African American) 112.4; Est GFR (Non-African American) 96.9; Magnesium 2.3 mg/dl (1.8-2.4); Potassium 3.5 mmol/L (3.5-5.1)
[2020-10-26 07:52] LABS: Phosphorus 3.1 mg/dl (2.5-4.9)
--- NOTE | 2020-10-26 11:09 | Surgery Progress Note ---
Date of Service October 26, 2020 Assessment & Plan (1) Diverticulitis of colon with perforation: Patient overall feels about the same as yesterday WBC downtrending 12.5 from 15, afebrile Starting to pass flatus and had a loose stool yesterday He is tolerating some amount of clears, based on his heartburn symptoms; no n/v He remains distended with ttp in RLQ Will obtain a CT a/p to further evaluate prior to advancing diet further as above. pt seen. denies nausea. still having moderate RLQ pain. CT reviewed. +pelvic /lower abdominal abcesses. SBO. ? underlying inflammatory bowel disease. will d/w primary service. recommend IR drainage of abcesses. will add dilaudid for pain. continue NPO/antibiotics. Admission and Anticipated Discharge Date Admission Date: October 23, 2020 Subjective Patient states he is feeling the same as yesterday. Was tolerating clears, but did develop some heartburn that is now being managed. He is not very hungry and backed himself down to ice water. He denies any nausea/vomiting. Reports pain in abdomen when palpated and that his pain medication wears off. He is starting to pass flatus and had some loose stool yesterday. Physical Exam Physical Exam: awake/alert Gastrointestinal (Abdomen): Inspection/Auscultation: + abdomen distended Percussion/Palpation: + abdomen tender (in RLQ) Results & Data ([facility]) Vital Signs (Past 12 Hours) Vital Signs Temp Pulse Pulse Resp BP BP Pulse Ox 10/26/20 10:44 36.5 C 85 20 162/100 H 96 10/26/20 09:02 36.6 C 84 173/110 H 96 10/26/20 07:00 82 10/26/20 04:48 36.6 C 87 26 H 169/85 H 92 10/25/20 23:53 90 10/25/20 23:30 36.7 C 90 20 134/81 94 PG Care Time/CCT Total # of Minutes Spent Total Time Spent with Patient: Total time spent is greater than 50% in coordination of care (as documented) at patient's floor/unit and/or counseling patient: Coding Level of Care Code 48673 Subseq Hosp Care Lvl 3 Diagnoses Diverticulitis of colon with perforation K57.20 Diverticulitis bleeding: unspecified bleeding status (1) Diverticulitis of colon with perforation Diverticulitis bleeding: unspecified bleeding status Qualified Code(s): K57.20 - Diverticulitis of large intestine with perforation and abscess without bleeding
[2020-10-26] MEDS ORDERED: METOPROLOL TARTRATE 1 MG/ML VIAL IV SCH (12:00)
[2020-10-26] MEDS ORDERED: ACETAMINOPHEN 325 MG TAB PO PRN (12:24)
[2020-10-26] MEDS ORDERED: METOPROLOL TARTRATE 1 MG/ML VIAL IV PRN (13:10)
[2020-10-26] MEDS ORDERED: LOSARTAN POTASSIUM 25 MG TAB PO SCH (13:15)
[2020-10-26] MEDS ORDERED: OPTIRAY 320 100ml IV ONE (13:46)
--- NOTE | 2020-10-26 14:13 | Hospitalist Progress Note ---
Date of Service October 26, 2020 Assessment & Plan (1) Severe sepsis: Secondary to diverticulitis of the colon with perforation Resuscitated with intravenous fluid and other measures. Has been getting intravenous Zosyn Not been improving remains stable (2) Diverticulitis of colon with perforation: Continue Zosyn. Per general surgery continue conservative management. Abdomen remains distended-bowel has not moved but he has been passing gas Abdomen remains distended CT of the abdomen pelvis has been ordered by the surgery team (3) SBO (small bowel obstruction): No nausea or vomiting present. Remains n.p.o. and getting intravenous fluid Clinically a little bit better-await CT of the abdomen and pelvis (4) Hypoxemia: Mild oxygen requirement, atelectasis on CXR and likely in setting of splinting from abdominal pain. Also monitoring closely for fluid overload after aggressive/appropriate sepsis resuscitation yesterday. (5) Lactic acidosis: resolved with sepsis resuscitation (6) Acute kidney failure: Normal baseline. No evidence of glomerulonephritis or UTI. Nephro following. Continue to trend daily BMP in the next coming days. Losartan on hold Creatinine has been normalized (7) Hyperglycemia: Hypoxemia recent course of prednisone causing initial hyperglycemia, now resolved without insulin. No need for further blood sugar checks at this time. This is resolved. (8) HTN (hypertension): blood pressure stable hold losartan in setting of renal failure Blood pressure is creeping up Restarted losartan and getting beta-travis as needed (9) DVT prophylaxis: SQ Heparin Full Code Dispo-cont PCU monitoring. Admission and Anticipated Discharge Date Admission Date: October 23, 2020 Subjective 10/25/2020 The patient was seen and examined in telemetry unit He has been feeling a little bit better and his abdominal distention and discomfort are better Has not moved bowels yet but has been passing gas Denies any fever and/or chills, no nausea and or vomiting 10/26/2020 The patient was seen and examined in telemetry unit He remained stable but showing no improvement Abdomen remains distended without any significant pain and/or nausea Blood pressure noted to be high with systolic more than 180 Review of Systems Review of Systems: All systems reviewed and are unremarkable except as noted below Gastrointestinal: + bloating; no abdominal pain, no nausea and no vomiting Physical Exam Physical Exam: Lying in the bed with minimal discomfort in the abdomen Constitutional: well developed, well nourished, + ill appearing and + obese Eyes: PERRL, conjunctivae normal, anicteric sclerae ENMT: external ear and nose normal, oropharynx normal Neck: trachea midline, no thyromegaly Respiratory: no respiratory distress Auscultation: lungs clear to auscultation bilaterally Cardiovascular: Rate/Rhythm: regular rate and regular rhythm Heart Sounds: no murmur Extremities: + edema (Trace edema bilaterally) Gastrointestinal (Abdomen): Inspection/Auscultation: + abdomen distended and + hypoactive bowel sounds Percussion/Palpation: + abdomen tender and + abdomen rigid; + abdomen not soft Musculoskeletal: No acute arthritis in any joint Neurologic: Alert, awake and oriented x3. Generally weak and lethargic Psychiatric: A+Ox3, euthymic affect Results & Data Results & Data ([facility]) Vital Signs (Past 12 Hours) Vital Signs Temp Pulse Pulse Resp BP BP BP 10/26/20 11:50 84 188/115 H 10/26/20 10:44 36.5 C 85 20 162/100 H 10/26/20 09:02 36.6 C 84 173/110 H 10/26/20 07:00 82 10/26/20 04:48 36.6 C 87 26 H 169/85 H Pulse Ox 10/26/20 11:50 10/26/20 10:44 96 10/26/20 09:02 96 10/26/20 07:00 10/26/20 04:48 92 Laboratory Results Short CBC 10/26/20 Range/Units 06:43 WBC 12.50 H (4.8-10.8) K/uL Hgb 12.5 L (14.0-18.0) g/dL Hct 38.6 L (42-52) % Plt Count 289 (130-400) K/uL BMP 10/26/20 06:43 Sodium 138 Potassium 3.5 Chloride 102 Carbon Dioxide 30 BUN 24 H Creatinine 0.86 Glucose 113 H Calcium 9.4 Medications Administered Current Inpatient Medications Acetaminophen (Acetaminophen 325 Mg Tab) 650 mg PO Q4H PRN PRN Reason: Pain Stop: 11/25/20 12:23 Al Hydrox/Mg Hydrox/Simethicone (Aluminum/Magnesium/Simeth (Maalox Max) 30 Ml Udc) 30 ml PO Q6H PRN PRN Reason: Heartburn Stop: 11/24/20 20:23 Last Admin: 10/25/20 20:29 Dose: 30 ml Documented by: Famotidine (Famotidine 20 Mg Tab) 20 mg PO BID [facility] Stop: 11/25/20 20:59 Heparin Sodium (Porcine) (Heparin Sod 5,000 Unit/0.5 Ml Vial) 5,000 units SQ Q8 [facility] Stop: 11/22/20 13:59 Last Admin: 10/26/20 05:45 Dose: 5,000 units Documented by: Piperacillin Sod/Tazobactam (Sod 4.5 gm/ Dextrose) 120 mls @ 30 mls/hr IV Q8 [facility]; Protocol Stop: 11/02/20 13:59 Last Infusion: 10/26/20 10:13 Dose: Infused Documented by: Lactated Ringer's (Lr) 1,000 mls @ 100 mls/hr IV .Q10H [facility] Stop: 11/23/20 07:29 Last Infusion: 10/26/20 09:25 Dose: 100 mls/hr Documented by: Losartan Potassium (Losartan Potassium 25 Mg Tab) 25 mg PO QAM [facility] Stop: 11/25/20 13:14 Metoprolol Tartrate (Metoprolol Tartrate 1 Mg/Ml Vial) 5 mg IV Q6 PRN PRN Reason: SBP >140 Stop: 11/25/20 11:59 Miscellaneous Information (Piperacill/Tazobac Consult Active) 1 ea N/A UD PRN PRN Reason: Consult Stop: 11/22/20 12:48 Ondansetron HCl (Ondansetron Inj 2 Mg/Ml 2 Ml Vial) 4 mg IV Q6H PRN PRN Reason: Nausea Stop: 11/22/20 12:48 Tramadol HCl (Tramadol Hcl 50 Mg Tablet) 50 mg PO Q4H PRN PRN Reason: breakthrough pain Stop: 11/23/20 13:54 Last Admin: 10/26/20 11:59 Dose: 50 mg Documented by: (1) Diverticulitis of colon with perforation Diverticulitis bleeding: unspecified bleeding status Qualified Code(s): K57.20 - Diverticulitis of large intestine with perforation and abscess without bleeding (2) Acute kidney failure Acute renal failure type: unspecified Qualified Code(s): N17.9 - Acute kidney failure, unspecified
--- NOTE | 2020-10-26 14:14 | CT Scan Report ---
CT abd pelvis oral and IV con CLINICAL HISTORY: Lower abdominal pain. Diverticulitis. COMPARISON STUDY: CT scan dated 10/23/2020 TECHNIQUE: Patient was scanned following administration of dilute oral contrast, and in a dynamic hel ical fashion during intravenous administration of 94 cc of Optiray 320 A dose lowering technique was utilized adhering to the principles of ALARA. CT DOSE: 900.99 mGy.cm FINDINGS: Lower chest: There are calcified right hilar lymph nodes. There is a calcified right lower lobe granu eric. There are bibasilar opacity statistically representing atelectasis. Liver: The contrast-enhanced liver is normal in size, contour, and attenuation. There is no intrahepa tic biliary ductal dilatation. The hepatic veins and portal veins are patent. Gallbladder: Unremarkable. Spleen: Normal in size and attenuation. Pancreas: Unremarkable. Adrenal glands: Unremarkable. Kidneys: There is symmetric renal cortical enhancement. The kidneys are normal in size without hydron ephrosis. Bowel: There are dilated small bowel loops with multiple air-fluid levels. The colon is decompressed. The findings are indicative of a small bowel obstruction. There appears to be a mid ileal transition zone. There is continued evidence for acute diverticulitis. There is again evidence for a focal perf oration with gas and fluid identified within the adjacent mesentery. Inflammatory changes are also pr esent at the ileocecal region. There is submucosal fat hypertrophy within the small bowel. Inflammato ry bowel disease is suspected. There are multiple right lower quadrant fluid collections consistent w ith multiple abscesses. These measure up to 4 cm in diameter. In retrospect these were likely present on the prior study but were difficult to differentiate from bowel loops given the lack of orally and intravenously administered contrast Peritoneum: There is low volume axial fluid, most pronounced within the perihepatic region Vasculature: The abdominal aorta is normal in course and caliber. Adenopathy: None. Pelvic viscera: There is gas present within the bladder. Correlation with recent instrumentation is r ecommended. 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 There is grade 1 spondylolisthesis of L5 an d S1 IMPRESSION: 1. Continued evidence for perforated diverticulitis with minimal increase in the size of the peridive rticular abscesses 2. Worsening small bowel obstruction, with an ileal transition zone in the midline superior to the di verticular abscess 3. Persistent inflammatory changes in the right lower quadrant adjacent to cecum and terminal ileum. 4. Possible inflammatory bowel disease 5. Multiple fluid collections adjacent to the Ileocecal region consistent with multiple abscesses. 6. Low volume perihepatic fluid. ACT 112: Negative or not required by law. Electronically signed by: Janak Mtz M.D. 10/26/2020 2:13 PM
[2020-10-26] MEDS: HYDROmorphone INJ 1 MG/ML SYRINGE IV PRN ×2 (14:58→18:15)
--- NOTE | 2020-10-26 15:32 | Discharge Summary ---
Date of Service October 26, 2020 Admission HPI Per Admitting Provider This is a 55-year-old male who has significant past medical history of hypertension who presents to ED secondary to abdominal pain x5 days. He started with generalized abdominal pain last Friday. Pain was generalized throughout abdomen, waxed and waned, improved with rest and made worse with movement. Yesterday pain worsened as he got a shooting/sharp abdominal pain located in his right side of abdomen, particularly right lower quadrant. He denies radiation. It came on when he also developed the urge to have a bowel movement. He had difficulty moving bowels and only had a small loose bowel movement. He denies any melena or hematochezia. Prior to that bowel movement he is unsure when his last bowel movement occurred. He has had very little intake over the last 2 to 3 days secondary to abdominal pain. He has never experienced anything like this in the past. In 2013 he did have a acute appendicitis requiring transfer to [place] with IR placement secondary to abscess. He did eventually undergo elective appendectomy laparoscopically. His other surgical history includes 3 inguinal hernia repairs. He also has experienced chills and sweats but no documented fever, shortness of breath that worsens with pain and nausea. He denies any dizziness, lightheadedness, syncope, chest pain, palpitations, cough, hemoptysis, emesis, hematemesis, dysuria, increased urgency or frequency with urination. He generally does feel weaker. Denies loss of taste or smell but generalized decline in appetite. Denies known Covid exposure. Last colonoscopy 2014 with polypectomy and due for repeat 2020. In ED patient remained hemodynamically stable, although he did meet SIRS criteria. Patient was tachycardic, tachypneic, initial temperature 38.0 and wbc elevated at 23.77k. Blood cultures obtained, initial lactic acid 4.6. Received 3L of IVF to meet 30 mL/kg criteria. Received broad-spectrum IV antibiotics with daptomycin, Levaquin and Zosyn. Lactic acid reduced to 3.6. There was initial concern for Covid which was negative x2. He underwent further testing in correlation with Covid including ESR, CRP, D-dimer and procalcitonin all which were elevated. Further lab abnormalities included BUN 37, creatinine 3.28, D-dimer 2900, ESR 73, CRP 35.7, ferritin 847.8, globulin 5.7, procalcitonin 12.84. CT abdomen pelvis consistent with acute sigmoid diverticulitis with focal perforation and suspected small peridiverticular abscesses not amenable to percutaneous drainage. Distal small bowel wall thickening concerning for chronic inflammatory bowel disease. Small bowel obstruction. Admission Exam Per Admitting Provider Physical Exam: Constitutional: Acutely ill-appearing male, WD/WN, vitals as above, NAD, sitting up in bed, answers questions appropriately, dyspneic with conversation Head: Normocephalic, Atraumatic Eyes: PERRL, conjunctivae normal, anicteric sclerae ENMT: external ear and nose normal, oropharynx normal Neck: trachea midline, no thyromegaly normal visual inspection Respiratory: Tachypneic, increased respiratory effort, lungs clear to auscultation but shallow breathing secondary to abdominal pain, no wheeze, rales, rhonchi. Increased insp/exp effort, no accessory muscle use Cardiovascular: RRR, no murmur, no edema, no erythema, negative Homans vessels: no JVD or carotid bruit Chest: normal inspection of chest Abdomen: Absent bowel sounds, distended abdomen, firm, normal bowel sounds, guarding right lower quadrant, no rigidity Musculoskeletal: no cyanosis or clubbing, extremities motor strength 5/5 Skin: no rashes, warm and dry normal turgor Neurologic: PERRL, EOMI, accommodation nl, no face palsy, no dysarthria CN's II-XI intact bilaterally and moves all extremities Psychiatric: A+Ox3, euthymic affect Lymphatic: no cervical or axillary lymphadenopathy : deferred Principal Diagnosis Acute diverticulitis with colonic perforation, multiple intra-abdominal abscess, possible inflammatory bowel disease, SBO, hypertension Discharge Exam Constitutional well developed, well nourished, + ill appearing and + obese Eyes PERRL, conjunctivae normal, anicteric sclerae ENMT external ear and nose normal, oropharynx normal Neck trachea midline, no thyromegaly Respiratory no respiratory distress Auscultation: lungs clear to auscultation bilaterally Cardiovascular Rate/Rhythm: regular rate and regular rhythm Heart Sounds: no murmur Extremities: + edema (Trace edema bilaterally) Gastrointestinal (Abdomen) Inspection/Auscultation: + abdomen distended and + hypoactive bowel sounds Percussion/Palpation: + abdomen tender and + abdomen rigid; + abdomen not soft Psychiatric A+Ox3, euthymic affect Discharge Data Allergies Allergy/AdvReac Type Severity Reaction Status Date / Time acetaminophen AdvReac Intermediate DEPRESSION Unverified 10/23/20 06:56 adhesive AdvReac Intermediate BANDAIDS,TAPE-REALLY Verified 10/23/20 06:56 ADHERES TO SKIN,TURNS TO MUSH Consultations 10/23/20 09:32 Consult General Surgery Stat 10/23/20 10:03 Consult Nephrology Routine 10/23/20 12:49 Consult Case Management - Discharge Planning Routine Ordered Studies 10/23/20 08:07 CT abd pelvis wo con Stat CT chest wo con Stat 10/23/20 15:00 US venous doppler LE BI Routine 10/26/20 11:10 CT abd pelvis oral and IV con Urgent Hospital Course (1) Severe sepsis: Secondary to diverticulitis of the colon with perforation Resuscitated with intravenous fluid and other measures. Has been getting intravenous Zosyn Not been improving remains stable (2) Diverticulitis of colon with perforation: Continue Zosyn. Per general surgery continue conservative management. Abdomen remains distended-bowel has not moved but he has been passing gas Abdomen remains distended CT of the abdomen pelvis has been ordered by the surgery team Repeat CT scan of the abdomen pelvis with contrast showed: 1. Continued evidence for perforated diverticulitis with minimal increase in the size of the peridiverticular abscesses 2. Worsening small bowel obstruction, with an ileal transition zone in the midline superior to the diverticular abscess 3. Persistent inflammatory changes in the right lower quadrant adjacent to cecum and terminal ileum. 4. Possible inflammatory bowel disease 5. Multiple fluid collections adjacent to the Ileocecal region consistent with multiple abscesses. 6. Low volume perihepatic fluid. Case discussed with the surgeon and radiologist for possible IR intervention over here and was advised for transfer to tertiary center. The patient was transferred to [facility] [place] for continued care. (3) SBO (small bowel obstruction): No nausea or vomiting present. Remains n.p.o. and getting intravenous fluid Clinically a little bit better-await CT of the abdomen and pelvis (4) Hypoxemia: Mild oxygen requirement, atelectasis on CXR and likely in setting of splinting from abdominal pain. Also monitoring closely for fluid overload after aggressive/appropriate sepsis resuscitation yesterday. (5) Lactic acidosis: resolved with sepsis resuscitation (6) Acute kidney failure: Normal baseline. No evidence of glomerulonephritis or UTI. Nephro following. Continue to trend daily BMP in the next coming days. Losartan on hold Creatinine has been normalized (7) Hyperglycemia: Hypoxemia recent course of prednisone causing initial hyperglycemia, now resolved without insulin. No need for further blood sugar checks at this time. This is resolved. (8) HTN (hypertension): blood pressure stable hold losartan in setting of renal failure Blood pressure is creeping up Restarted losartan and getting beta-travis as needed (9) DVT prophylaxis: SQ Heparin Full Code Discussed with the patient and he was transferred to [facility] [place] for continued care Total Time Total Time Spent Total Time Spent (In Minutes): 40 minutes Discharge Plan Discharge Items Patient Disposition: Transfer Acute Care Hospital Reason For Visit: BREATHING DIFFICULTY Discharge Diagnosis: Acute diverticulitis with colonic perforation, multiple intra-abdominal abscess, possible inflammatory bowel disease, SBO, hypertension Condition on Discharge: Serious Activity: As commented below Activity Comment: bed rest Non-emergency contact: Primary Care Provider Call non-emergency contact if: you have any medication questions and your symptoms worsen Follow-up/Referrals: El Linares DO [Primary Care Provider] - Diet: Other - See Diet Comment Diet Comment: NPO Addtl Attending Provider Instructions: Will need possible open surgical intervention/IR drainage of abscesses His home medications have been stopped and continued all of the inpatient medications as below: Acetaminophen (Acetaminophen 325 Mg Tab) 650 mg PO Q4H PRN PRN Reason: Pain Stop: 11/25/20 12:23 Al Hydrox/Mg Hydrox/Simethicone (Aluminum/Magnesium/Simeth (Maalox Max) 30 Ml Udc) 30 ml PO Q6H PRN PRN Reason: Heartburn Stop: 11/24/20 20:23 Last Admin: 10/25/20 20:29 Dose: 30 ml Documented by: Famotidine (Famotidine 20 Mg Tab) 20 mg PO BID [facility] Stop: 11/25/20 20:59 Heparin Sodium (Porcine) (Heparin Sod 5,000 Unit/0.5 Ml Vial) 5,000 units SQ Q8 [facility] Stop: 11/22/20 13:59 Last Admin: 10/26/20 05:45 Dose: 5,000 units Documented by: Piperacillin Sod/Tazobactam (Sod 4.5 gm/ Dextrose) 120 mls @ 30 mls/hr IV Q8 [facility]; Protocol Stop: 11/02/20 13:59 Last Infusion: 10/26/20 10:13 Dose: Infused Documented by: Lactated Ringer's (Lr) 1,000 mls @ 100 mls/hr IV .Q10H [facility] Stop: 11/23/20 07:29 Last Infusion: 10/26/20 09:25 Dose: 100 mls/hr Documented by: Losartan Potassium (Losartan Potassium 25 Mg Tab) 25 mg PO QAM [facility] Stop: 11/25/20 13:14 Metoprolol Tartrate (Metoprolol Tartrate 1 Mg/Ml Vial) 5 mg IV Q6 PRN PRN Reason: SBP >140 Stop: 11/25/20 11:59 Miscellaneous Information (Piperacill/Tazobac Consult Active) 1 ea N/A UD PRN PRN Reason: Consult Stop: 11/22/20 12:48 Ondansetron HCl (Ondansetron Inj 2 Mg/Ml 2 Ml Vial) 4 mg IV Q6H PRN PRN Reason: Nausea Stop: 11/22/20 12:48 Tramadol HCl (Tramadol Hcl 50 Mg Tablet) 50 mg PO Q4H PRN PRN Reason: breakthrough pain Stop: 11/23/20 13:54 Last Admin: 10/26/20 11:59 Dose: 50 mg Documented by: Vic Director Of Maintenance Provider Instructions: -due to severe acute kidney injury, recommend follow up appointment in kidney clinic with any physician or PA in our group approximately 4-6 weeks after discharge -resume losartan at discharge or at follow up visit with PCP -needs to have bmp, uacm, prot/creat checked at follow up visit with PCP or within a week of discharge, whichever is first -minimize and for next 3 months completely avoid NSAID use Pending Studies at Discharge: No Stand-Alone Forms: My [employer] Skilled Items Patient informed of condition?: Yes DNR: No Discharge Level of Care: Other Communicable Disease: No Discharge Prognosis: Stable Lines: Peripheral IV Urinary Catheter: Yes Medications and DC Order Prescriptions: Discontinued losartan 25 mg tablet 25 mg PO DAILY RF: 0 cholecalciferol (vitamin D3) [Vitamin D3] 25 mcg (1,000 unit) Tablet 50 mcg PO DAILY RF: 0 Discharge Orders: Discharge Order (Routine); Ordered 10/26/20 Ordered By: Christ Castanon/Other Patient Handouts: 5 Steps for Eating Healthier, A1C Admission Data Admit Date/Time: 10/23/20 10:03 Attending Provider: Christ Hauser Admit Provider: Maile Fox Primary Care Provider: El Linares Other Providers: Vijay Olivia ; Winifred Castaneda ; Maile Fox
[2020-10-26] MEDS ORDERED: FAMOTIDINE 20 MG TAB PO SCH (21:00)
[2020-10-27] MEDS ORDERED: PANTOprazole 40 MG TAB PO SCH (09:00)
== END 2020-10-26 18:17 | disposition short-term general hospital (02) | DRG 391 ==
LOC: ED 06:39 → SUATTDRO 10:03 → 2S 10:03

== ENCOUNTER 2021-01-31 10:34 | Inpatient (IN) ==
[2021-01-31] MEDS ORDERED: PIPERACILL/TAZOBAC CONSULT ACTIVE PRN ×3 (10:41→17:11)
[2021-01-31] MEDS ORDERED: PIPERACILLIN/TAZOBACTAM 4.5 GM/120 ML BAG IV ONE (10:41)
--- NOTE | 2021-01-31 10:52 | Emergency Department Note ---
Impression & Plan Leakage of surgical anastomosis of digestive tract, Tachypnea, Abdominal pain, Sepsis ED Provider Note NAME: BANDAR GABRIEL AGE: 55 SEX: M : 1965 ARRIVES VIA: Ambulance INFORMANT: Patient ED PROVIDER(S): Lan Fitzpatrick DO CHIEF COMPLAINT: Shortness of breath and abdominal pain HPI: Patient is a 55-year-old male s/p laparoscopic hand-assisted resection of the sigmoid and rectum performed on the of this month at [facility]. Patient was discharged on the . Since this past Friday he has been having significant worsening abdominal pain. Last bowel movement present within the past 24 hours. He denies any nausea or vomiting. Denies any chest pain but admits to a significant amount of shortness of breath. No nausea, vomiting or diarrhea. No dysuria, urgency or frequency. Patient had a follow-up appointment with his PCP and was referred into the ER. ROS: See above HPI for pertinent positives & negatives. A total of 10 systems reviewed and were otherwise negative. PAST MEDICAL HISTORY:See Below PAST SURGICAL HISTORY:See Below FAMILY HISTORY:See Below SOCIAL HISTORY:See Below HOME MEDICATIONS:See Below ALLERGIES:See Below VITALS:See Below PHYSICAL EXAMINATION: GENERAL: Sitting up in bed, alert, ill-appearing, diaphoretic, pale EYE EXAM: normal conjunctiva. OROPHARYNX: mucous membranes are dry LUNGS: Diminished bilateral. Normal chest wall mechanics HEART: Tachycardic, S1 normal and S2 normal ABDOMEN: Abdomen distended, diffusely tender with rebound and guarding in the left lower quadrant UPPER EXTREMITIES: upper extremities are grossly normal. LOWER EXTREMITIES: No pitting edema. NEURO EXAM: Normal sensorium, cranial nerves II-XII grossly intact, normal speech, no gross weakness of arms, no gross weakness of legs. MEDICAL DECISION MAKING: Patient is a 55-year-old male status post sigmoid/partial rectal resection performed at [facility] who presents the ER for severe abdominal pain. On exam he is diaphoretic, tachypneic, tachycardic and febrile. Heart rate was initially in the 140s. IVs were established blood work was obtained. Labs showed a mild leukocytosis of 11,000. Mild anemia at 9.9 up from previous at [facility]. INR was normal. BMP with mild hypokalemia. Glucose was slightly up at 200. Bilirubin and LFTs were slightly elevated as well at 2 and 100. Troponin was negative. Procalcitonin was elevated. Urine does suggest a clear UTI. I-STAT was obtained patient was taken emergently to CAT scan. CT showed perforated abdomen. Contacted Dr. Cobb from [facility]. Patient was accepted in transfer via [facility]. [facility] was unable to fly and was recontacted by the transfer center who has spoke with Dr. Steve cárdenas who initially performed the surgery reviewed the images that we sent down. He recommended having her surgeon take the patient to the OR. Her surgeon was paged overhead multiple times to contact him. Eventually discussed case w/ trevon who is his POA. They present and evaluated him at bedside. They spoke with [facility] as well and patient was taken emergently to the OR. He received IV Zosyn and 3 L of IV fluids while in the ER. Triage Nursing notes reviewed. Limited review of prior medical records performed Vital Signs: reviewed and remarkable for no significant abnormalities Differential diagnosis: Differential diagnosis includes etiologies such as sepsis, UTI, pneumonia, m etabolic, electrolyte abnormalities, cardiac sources, intracerebral event, toxicologic, neurological, as well as others were entertained. ER treatment provided: See below Diagnostics interpreted by me: ECG: Sinus tachycardia rate of 121 Normal axis T wave inversion in the inferior leads QTC [address] wave changes in the lateral leads Cardiac Monitoring: An order was placed for continuous cardiac monitoring. The monitor shows a rate of 119 with sinus rhythm. Laboratory studies: As stated above and show below. Imaging studies: CT angio of the chest and CT abdomen shows perforated viscus at the anastomosis site Consultation(s): Discussed with Dr. Aguilar from [facility] who accepted patient in transfer Discussed with Chantell and eventually Dr. Hernández who agreed to take the patient emergently to the OR here due to transportation issues/[facility] being unable to fly and recommendations of Dr. Brice is from [facility] surgery. Procedures: none Critical Care: I have personally spent 75 minutes of critical care time in the direct management of this patient. This includes bedside care, interpretation of diagnostic studies, and testing, discussion with consultants, patient, and family members, and other required patient management activities. This 75 minutes is in excess of all separately billable procedures. Past Med/Surg History Medical History (Updated 03/17/21 @ 13:43 by Lan Fitzpatrick DO) Acute kidney failure Diverticulitis of colon with perforation HTN (hypertension) SBO (small bowel obstruction) Sciatica of left side Severe sepsis Surgical History (Updated 10/23/20 @ 11:24 by Jill Vargas PA-C) History of appendectomy Inguinal hernia s/p repair x 3 Family History (Updated 10/23/20 @ 11:25 by Jill Vargas PA-C) Mother Lung disease Social History (Updated 10/23/20 @ 11:26 by Jill Vargas PA-C) Smoking Status: Former smoker Tobacco Type: Cigarettes packs per day: 1.5; Years Smoked: 30; Second Hand Exposure: No; Hx Alcohol Use: Yes Alcohol type: beer Alcohol Intake Frequency: Monthly or Less Hx Substance Use: No Preferred Language: Arabic Communication Ability: Effective Handle 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 Vent 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 Operator Required: No Beliefs That Will Affect Care: None marital status: Current Living Situation: Spouse current occupational status: employed 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 Feels Safe at Home: Yes Assistive Devices: Glasses and Oxygen - Continuous Allergies Allergies Allergy/AdvReac Type Severity Reaction Status Date / Time acetaminophen AdvReac Intermediate DEPRESSION Unverified 01/31/21 11:42 adhesive AdvReac Intermediate BANDAIDS,TAPE-REALLY Verified 01/31/21 11:42 ADHERES TO SKIN,TURNS TO MUSH Home Meds Home Medications Medication Instructions Recorded Confirmed acetaminophen [Tylenol] 0 mg PO QID PRN 01/31/21 01/31/21 cholecalciferol (vitamin D3) 50 mcg PO DAILY 01/31/21 01/31/21 [Vitamin D3] losartan 25 mg PO DAILY 01/31/21 01/31/21 oxycodone 5 mg PO Q4H PRN 01/31/21 01/31/21 Results & Data (ED) Vital Signs Vital Signs - 24 hr 01/31/21 10:41 01/31/21 11:28 01/31/21 12:00 Temperature 36.9 C Temperature Source Oral Pulse Rate 123 H Pulse Rate [Left Finger] Pulse Rhythm [Left Finger] Pulse Strength [Left Finger] Respiratory Rate 28 H 18 18 Respiratory Effort / Characteristics Non-Labored Non-Labored Respiratory Depth Normal Respiratory Pattern Blood Pressure 137/80 Blood Pressure [Left Arm] 137/80 Blood Pressure Mean 99 Blood Pressure Mean [Left Arm] 99 Blood Pressure Position [Left Arm] Pulse Oximetry 92 92 Oxygen Delivery Method Room Air Room Air Room Air Oxygen Flow Rate Sepsis Recent Fever Within 48 Hours No Sepsis New/Unexplained Change in Mental Status No Sepsis Action Taken by Nursing Previously Notified 01/31/21 13:26 01/31/21 13:28 Temperature 37 C Temperature Source Oral Pulse Rate Pulse Rate [Left Finger] 112 H Pulse Rhythm [Left Finger] Regular Pulse Strength [Left Finger] Normal Respiratory Rate 24 Respiratory Effort / Characteristics Non-Labored Spontaneous Respiratory Depth Normal Respiratory Pattern Regular Blood Pressure Blood Pressure [Left Arm] 170/85 H Blood Pressure Mean Blood Pressure Mean [Left Arm] 113 Blood Pressure Position [Left Arm] Lying Pulse Oximetry 98 Oxygen Delivery Method Nasal Cannula Room Air Oxygen Flow Rate 3 Sepsis Recent Fever Within 48 Hours Sepsis New/Unexplained Change in Mental Status Sepsis Action Taken by Nursing Laboratory Data Result diagrams: 01/31/21 10:44 01/31/21 10:44 Lab Results 01/31/21 01/31/21 01/31/21 Range/Units 10:44 10:44 10:44 WBC 10.98 H (4.8-10.8) K/uL RBC 3.37 L (4.7-6.1) M/uL Hgb 9.9 L (14.0-18.0) g/dL POC Hgb (14.0-18.0) g/dl Hct 29.3 L (42-52) % POC Hct (42-52) % MCV 86.9 (80-100) fL MCH 29.4 (25-34) pg MCHC 33.8 (32-36) g/dL RDW Std Deviation 46.2 (36.4-46.3) fL RDW Coeff of Kirstin 14.9 H (11.5-14.5) % Plt Count 412 H (130-400) K/uL MPV 9.6 (7.4-10.4) fL Immature Gran % (Auto) 0.5 % Neut % (Auto) 83.2 % Lymph % (Auto) 6.7 % [place] % (Auto) 9.4 % Eos % (Auto) 0.1 % Baso % (Auto) 0.1 % Neut # (Auto) 9.13 H (1.4-6.5) K/uL Lymph # (Auto) 0.74 L (1.2-3.4) K/uL [place] # (Auto) 1.03 H (0.11-0.59) K/uL Eos # (Auto) 0.01 (0-0.5) K/uL Baso # (Auto) 0.01 (0-0.2) K/uL Immature Gran # (Auto) 0.06 H (0.00-0.02) K/uL PT 11.3 (9.0-12.0) Seconds INR 1.1 (0.9-1.1) APTT 34.1 H (21.0-31.0) Seconds PTT Ratio 1.3 POC Sodium (135-144) mmol/L Sodium 136 (136-145) mmol/L POC Potassium (3.3-5.0) mmol/L Potassium 3.4 L (3.5-5.1) mmol/L POC Chloride (101-112) mmol/L Chloride 105 (98-107) mmol/L Carbon Dioxide 23 (21-32) mmol/L POC Total CO2 (24-31) mmol/L Anion Gap 8.0 (3-11) POC Anion Gap (16-25) mmol/L POC BUN (7-18) mg/dl BUN 16 (7-18) mg/dl Creatinine 1.01 (0.6-1.4) mg/dl POC Creatinine (0.6-1.3) mg/dl Est Cr Clr Drug Dosing 99.5 ml/min Est GFR ( Amer) 95.9 Est GFR (Non-Af Amer) 82.8 BUN/Creatinine Ratio 16.2 (10-20) Glucose 199 H (70-99) mg/dl POC Glucose (other) (70-99) mg/dl Lactate (0.4-2.0) mmol/L Calcium 8.2 L (8.5-10.1) mg/dl POC Ioniz Calcium Joshua (1.12-1.32) mmol/l Magnesium 1.9 (1.8-2.4) mg/dl Total Bilirubin 2.1 H (0.2-1) mg/dl AST 83 H (15-37) U/L ALT 109 H (12-78) U/L Alkaline Phosphatase 158 H (45-117) U/L Troponin I < 0.015 (0-0.045) ng/ml Total Protein 6.6 (6.4-8.2) gm/dl Albumin 2.5 L (3.4-5.0) gm/dl Globulin 4.1 H (2.5-4.0) gm/dl Albumin/Globulin Ratio 0.6 L (0.9-2) Procalcitonin (0-0.5) ng/ml Urine Color Urine Appearance (Clear) Urine pH (4.5-7.5) Ur Specific Worth (1.000-1.030) Urine Protein (Negative) Urine Glucose (UA) (Negative) Urine Ketones (Negative) Urine Blood (Negative) Urine Nitrite (Negative) Urine Bilirubin (Negative) Urine Urobilinogen (Negative) Ur Leukocyte Esterase (Negative) Urine WBC (Auto) (0-5) /hpf Urine RBC (Auto) (0-4) /hpf U Hyaline Cast (Auto) (0-5) /lpf U Epithel Cells (Auto) (0-5) /lpf Urine Bacteria (Auto) (Negative) Urine Mucus (None Prsent) SARS-CoV-2 Ag (Rapid) (Negative) Crossmatch 01/31/21 01/31/21 01/31/21 Range/Units 10:44 10:44 10:49 WBC (4.8-10.8) K/uL RBC (4.7-6.1) M/uL Hgb (14.0-18.0) g/dL POC Hgb 9.9 L (14.0-18.0) g/dl Hct (42-52) % POC Hct 29 L (42-52) % MCV (80-100) fL MCH (25-34) pg MCHC (32-36) g/dL RDW Std Deviation (36.4-46.3) fL RDW Coeff of Kirstin (11.5-14.5) % Plt Count (130-400) K/uL MPV (7.4-10.4) fL Immature Gran % (Auto) % Neut % (Auto) % Lymph % (Auto) % [place] % (Auto) % Eos % (Auto) % Baso % (Auto) % Neut # (Auto) (1.4-6.5) K/uL Lymph # (Auto) (1.2-3.4) K/uL [place] # (Auto) (0.11-0.59) K/uL Eos # (Auto) (0-0.5) K/uL Baso # (Auto) (0-0.2) K/uL Immature Gran # (Auto) (0.00-0.02) K/uL PT (9.0-12.0) Seconds INR (0.9-1.1) APTT (21.0-31.0) Seconds PTT Ratio POC Sodium 136 (135-144) mmol/L Sodium (136-145) mmol/L POC Potassium 3.5 (3.3-5.0) mmol/L Potassium (3.5-5.1) mmol/L POC Chloride 100 L (101-112) mmol/L Chloride (98-107) mmol/L Carbon Dioxide (21-32) mmol/L POC Total CO2 25 (24-31) mmol/L Anion Gap (3-11) POC Anion Gap 16.0 (16-25) mmol/L POC BUN 17 (7-18) mg/dl BUN (7-18) mg/dl Creatinine (0.6-1.4) mg/dl POC Creatinine 0.8 (0.6-1.3) mg/dl Est Cr Clr Drug Dosing ml/min Est GFR ( Amer) Est GFR (Non-Af Amer) BUN/Creatinine Ratio (10-20) Glucose (70-99) mg/dl POC Glucose (other) 209 H (70-99) mg/dl Lactate 1.9 (0.4-2.0) mmol/L Calcium (8.5-10.1) mg/dl POC Ioniz Calcium Joshua 1.12 (1.12-1.32) mmol/l Magnesium (1.8-2.4) mg/dl Total Bilirubin (0.2-1) mg/dl AST (15-37) U/L ALT (12-78) U/L Alkaline Phosphatase (45-117) U/L Troponin I (0-0.045) ng/ml Total Protein (6.4-8.2) gm/dl Albumin (3.4-5.0) gm/dl Globulin (2.5-4.0) gm/dl Albumin/Globulin Ratio (0.9-2) Procalcitonin 1.00 H (0-0.5) ng/ml Urine Color Urine Appearance (Clear) Urine pH (4.5-7.5) Ur Specific Worth (1.000-1.030) Urine Protein (Negative) Urine Glucose (UA) (Negative) Urine Ketones (Negative) Urine Blood (Negative) Urine Nitrite (Negative) Urine Bilirubin (Negative) Urine Urobilinogen (Negative) Ur Leukocyte Esterase (Negative) Urine WBC (Auto) (0-5) /hpf Urine RBC (Auto) (0-4) /hpf U Hyaline Cast (Auto) (0-5) /lpf U Epithel Cells (Auto) (0-5) /lpf Urine Bacteria (Auto) (Negative) Urine Mucus (None Prsent) SARS-CoV-2 Ag (Rapid) (Negative) Crossmatch 01/31/21 01/31/21 01/31/21 Range/Units 12:05 12:06 13:17 WBC (4.8-10.8) K/uL RBC (4.7-6.1) M/uL Hgb (14.0-18.0) g/dL POC Hgb (14.0-18.0) g/dl Hct (42-52) % POC Hct (42-52) % MCV (80-100) fL MCH (25-34) pg MCHC (32-36) g/dL RDW Std Deviation (36.4-46.3) fL RDW Coeff of Kirstin (11.5-14.5) % Plt Count (130-400) K/uL MPV (7.4-10.4) fL Immature Gran % (Auto) % Neut % (Auto) % Lymph % (Auto) % [place] % (Auto) % Eos % (Auto) % Baso % (Auto) % Neut # (Auto) (1.4-6.5) K/uL Lymph # (Auto) (1.2-3.4) K/uL [place] # (Auto) (0.11-0.59) K/uL Eos # (Auto) (0-0.5) K/uL Baso # (Auto) (0-0.2) K/uL Immature Gran # (Auto) (0.00-0.02) K/uL PT (9.0-12.0) Seconds INR (0.9-1.1) APTT (21.0-31.0) Seconds PTT Ratio POC Sodium (135-144) mmol/L Sodium (136-145) mmol/L POC Potassium (3.3-5.0) mmol/L Potassium (3.5-5.1) mmol/L POC Chloride (101-112) mmol/L Chloride (98-107) mmol/L Carbon Dioxide (21-32) mmol/L POC Total CO2 (24-31) mmol/L Anion Gap (3-11) POC Anion Gap (16-25) mmol/L POC BUN (7-18) mg/dl BUN (7-18) mg/dl Creatinine (0.6-1.4) mg/dl POC Creatinine (0.6-1.3) mg/dl Est Cr Clr Drug Dosing ml/min Est GFR ( Amer) Est GFR (Non-Af Amer) BUN/Creatinine Ratio (10-20) Glucose (70-99) mg/dl POC Glucose (other) (70-99) mg/dl Lactate (0.4-2.0) mmol/L Calcium (8.5-10.1) mg/dl POC Ioniz Calcium Joshua (1.12-1.32) mmol/l Magnesium (1.8-2.4) mg/dl Total Bilirubin (0.2-1) mg/dl AST (15-37) U/L ALT (12-78) U/L Alkaline Phosphatase (45-117) U/L Troponin I (0-0.045) ng/ml Total Protein (6.4-8.2) gm/dl Albumin (3.4-5.0) gm/dl Globulin (2.5-4.0) gm/dl Albumin/Globulin Ratio (0.9-2) Procalcitonin (0-0.5) ng/ml Urine Color Tatums Urine Appearance Clear (Clear) Urine pH 5.5 (4.5-7.5) Ur Specific Worth > 1.045 H (1.000-1.030) Urine Protein 1+ H (Negative) Urine Glucose (UA) Negative (Negative) Urine Ketones Trace H (Negative) Urine Blood Negative (Negative) Urine Nitrite Positive A (Negative) Urine Bilirubin 1+ H (Negative) Urine Urobilinogen Negative (Negative) Ur Leukocyte Esterase Trace H (Negative) Urine WBC (Auto) 1-5 (0-5) /hpf Urine RBC (Auto) 5-10 H (0-4) /hpf U Hyaline Cast (Auto) 5-10 H (0-5) /lpf U Epithel Cells (Auto) 20-30 H (0-5) /lpf Urine Bacteria (Auto) Negative (Negative) Urine Mucus Present A (None Prsent) SARS-CoV-2 Ag (Rapid) Negative (Negative) Crossmatch See Detail Administered Medications Sodium Chloride (Nss 1000ml) 1,000 mls @ 999 mls/hr IV .Q1H1M ONE Stop: 01/31/21 13:49 Last Admin: 01/31/21 13:09 Dose: 999 mls/hr Documented by: [id number] Discontinued Medications Piperacillin Sod/Tazobactam Sod (Zosyn) 4.5 gm in 120 mls @ 240 mls/hr IV NOW ONE; Protocol Stop: 01/31/21 11:10 Last Admin: 01/31/21 11:54 Dose: 240 mls/hr Documented by: [id number] Ioversol (Optiray 320 125ml) 120 ml IV ONCE ONE Stop: 01/31/21 11:07 Last Admin: 01/31/21 11:06 Dose: 120 ml Documented by: [id number] Miscellaneous Information (Piperacill/Tazobac Consult Active) 1 ea N/A UD PRN PRN Reason: Consult Stop: 03/02/21 10:40 Last Admin: 01/31/21 11:52 Dose: 1 ea Documented by: [id number] Discharge Plan Visit Data Chief Complaint: Shortness of Breath/Dyspnea ED Provider: Lan Fitzpatrick Discharge Problem: Leakage of surgical anastomosis of digestive tract, Tachypnea, Abdominal pain, Sepsis Patient Disposition: Still a Patient Discharge Instructions Interventions: ED Discharge Assessment Last Done: 01/31/21 13:28 Discharge Problem: Abdominal pain Qualifiers: Abdominal location: unspecified location Qualified Code(s): R10.9 - Unspecified abdominal pain Sepsis Qualifiers: Sepsis type: sepsis due to unspecified organism Sepsis acute organ dysfunction status: unspecified Qualified Code(s): A41.9 - Sepsis, unspecified organism
[2021-01-31 10:55] LABS: Basophils # (auto) 0.01 K/uL (0-0.2); Basophils % (auto) 0.1 %; Eosinophils # (auto) 0.01 K/uL (0-0.5); Eosinophils % (auto) 0.1 %; Hematocrit (blood only) 29.3 % (42-52); Hemoglobin 9.9 g/dL (14.0-18.0); Immature Granulocytes # (auto) 0.06 K/uL (0.00-0.02); Immature Granulocytes % (auto) 0.5 %; Lymphocytes # (auto) 0.74 K/uL (1.2-3.4); Lymphocytes % (auto) 6.7 %; Mean Corpuscular Hemoglobin 29.4 pg (25-34); Mean Corpuscular Hgb Conc 33.8 g/dL (32-36); Mean Corpuscular Volume 86.9 fL (80-100); Mean Platelet Volume 9.6 fL (7.4-10.4); Monocytes # (auto) 1.03 K/uL (0.11-0.59); Monocytes % (auto) 9.4 %; Neutrophils # (auto) 9.13 K/uL (1.4-6.5); Neutrophils % (auto) 83.2 %; Platelet Count 412 K/uL (130-400); RDW Coefficient of Variation 14.9 % (11.5-14.5); RDW Standard Deviation 46.2 fL (36.4-46.3); Red Blood Count 3.37 M/uL (4.7-6.1); White Blood Count 10.98 K/uL (4.8-10.8)
--- NOTE | 2021-01-31 11:02 | XRay Report ---
XR chest 1V portable CLINICAL HISTORY: SEPSIS COMPARISON STUDY: No previous studies for comparison. FINDINGS: The heart is normal in size. There are low lung volumes with mild basilar atelectasis. Ther e is no failure. There is no lobar consolidation. There is suspected free intraperitoneal air. Correl ate with recent surgical history. IMPRESSION: 1. Low lung volumes with mild basilar atelectasis 2. Suspected free intraperitoneal air. Correlate with recent surgical history. ACT 112: Negative or not required by law. Electronically signed by: Janak Mtz M.D. 01/31/2021 11:01 AM
[2021-01-31] MEDS ORDERED: OPTIRAY 320 125ml IV ONE (11:06)
[2021-01-31 11:08] LABS: iSTAT Creatinine 0.8 mg/dl (0.6-1.3); iSTAT Hemoglobin 9.9 g/dl (14.0-18.0); iSTAT Ionized Calcium 1.12 mmol/l (1.12-1.32); iSTAT Potassium 3.5 mmol/L (3.3-5.0)
[2021-01-31 11:08] LABS: INR 1.1 (0.9-1.1); Partial Thromboplastin Ratio 1.3; Partial Thromboplastin Time 34.1 Seconds (21.0-31.0); Prothrombin Time 11.3 Seconds (9.0-12.0)
[2021-01-31 11:19] LABS: Albumin Level 2.5 gm/dl (3.4-5.0); BUN Creatinine Ratio 16.2 (10-20); Blood Urea Nitrogen 16 mg/dl (7-18); Calcium 8.2 mg/dl (8.5-10.1); Carbon Dioxide 23 mmol/L (21-32); Chloride 105 mmol/L (98-107); Creatinine Clr Calc Pharmacy 99.5 ml/min; Est GFR (African American) 95.9; Est GFR (Non-African American) 82.8; Glucose 199 mg/dl (70-99); Magnesium 1.9 mg/dl (1.8-2.4); Potassium 3.4 mmol/L (3.5-5.1); Sodium 136 mmol/L (136-145)
[2021-01-31 11:24] LABS: Alanine Aminotransferase 109 U/L (12-78); Albumin Globulin Ratio 0.6 (0.9-2); Alkaline Phosphatase 158 U/L (45-117); Aspartate Aminotransferase 83 U/L (15-37); Bilirubin,Total 2.1 mg/dl (0.2-1); Globulin 4.1 gm/dl (2.5-4.0); Total Protein 6.6 gm/dl (6.4-8.2); Troponin I < 0.015 ng/ml (0-0.045)
--- NOTE | 2021-01-31 11:37 | CT Scan Report ---
CT OF THE ABDOMEN AND PELVIS WITH CONTRAST CLINICAL HISTORY: Severe abdominal pain status post sigmoid resection. COMPARISON STUDY: CT of the abdomen and pelvis October 26, 2020. TECHNIQUE: Following IV administration of 120 mL of Optiray-320, axial images of the abdomen and pelv is were obtained from the lung bases to the proximal femurs. Images were reviewed in the axial, sagit allison, and coronal planes. IV contrast was administered without complication. Automated exposure contr ol was utilized for the study. A dose lowering technique was utilized adhering to the principles of ALARA. CT DOSE: 1515.14 mGy.cm FINDINGS: Please note that the chest CT will be reported separately. A subcentimeter right hepatic lo be lesion is too small to characterize but is likely benign. There is no biliary or pancreatic ductal dilatation. No peripancreatic infiltration is noted. The spleen, adrenal glands and left kidney are normal. A 1.4 cm water attenuation right renal lesion favors a cyst. The gallbladder is mildly disten ded. Major vasculature is patent. There is moderate aortoiliac atherosclerotic plaque. There are post operative findings consistent with sigmoid colon resection. There is moderate pneumoperitoneum with e xtraluminal gas adjacent to the sigmoid colon anastomosis. Note is made of a suspected leak just supe rior to the anastomosis on image 415. There is adjacent extraluminal gas. Multiple lower abdominal an d pelvic fluid collections contain gas and fluid. The largest is a lower abdominal fluid collection m easures 9.4 x 5.9 cm. Several of these collections likely communicate. Interloop fluid is noted withi n the lower abdomen and pelvis. There is mesenteric infiltration. Wall thickening of several small ghislaine wel loops is noted. Fluid within the left paracolic gutter and left anterior pararenal space is noted . This likely tracks from the pelvis. There is no evidence for a bowel obstruction. The appendix is s urgically absent. No suspicious osseous lesions are present. There is no lymphadenopathy. IMPRESSION: Findings suggestive of an anastomotic leak with leak along the superior aspect of the sigmoid anastom osis with extraluminal gas and multiple lower abdominal and pelvic fluid collections suggestive of ab scesses that measure up to 9.4 x 5.9 cm. Moderate pneumoperitoneum. Fluid extends superiorly within t he left paracolic gutter and left anterior pararenal space. Associated mesenteric infiltration and hy peremia as well as small bowel wall thickening which may be reactive. No bowel obstruction. Surgical consultation is recommended. Findings discussed with Dr. Fitzpatrick at time of dictation. ACT 112: Negative or not required by law. Electronically signed by: Shane Lugo M.D. 01/31/2021 11:36 AM
--- NOTE | 2021-01-31 11:38 | CT Scan Report ---
CHEST CTA for PULMONARY ARTERIES CT DOSE: HISTORY: Atypical chest pain. Shortness of breath. TECHNIQUE: Multiaxial CT images of the chest were performed following the intravenous administration of contrast to evaluate the pulmonary arteries. Maximal intensity projection images were also obtaine d. A dose lowering technique was utilized adhering to the principles of ALARA. COMPARISON STUDY: Chest CT 10/23/2020. FINDINGS: Normal caliber thoracic aorta with no evidence for dissection. The heart is normal in size. No pleural or pericardial effusions. Respiratory motion artifact results in nondiagnostic evaluation of the majority of the left lower lobe and lingular segmental/subsegmental arteries. Otherwise, no f illing defects within the remaining pulmonary arteries to suggest pulmonary embolus. Stable mildly en larged and calcified right hilar lymph nodes. Dominant right hilar lymph node on image 125 measures 1 9 x 14 mm. No mediastinal or left hilar lymphadenopathy. Please refer the same day abdomen and pelvis CT for further evaluation of the pneumoperitoneum. Normal esophagus. No suspicious lytic or blastic osseous lesions. No pneumothorax. The central airways are patent. Mild emphysema. Calcified granuloma within the right lung base. Bilateral lower lobe linear densities are nonspecific but favor subsegme ntal atelectasis. IMPRESSION: 1. No evidence for pulmonary embolus with limitations as described above. 2. No change in the partially calcified right hilar lymphadenopathy. This may be secondary to the ash or granulomatous disease. 3. Bilateral lower lobe linear densities favor subsegmental atelectasis. Otherwise, no focal lung con solidations to suggest pneumonia. 4. Please refer to the same day abdomen and pelvis CT for further evaluation of the pneumoperitoneum. ACT 112: Negative or not required by law. Electronically signed by: Km Flanagan M.D. 01/31/2021 11:37 AM
[2021-01-31 12:36] LABS: Appearance Urine Clear (Clear); Bacteria Urine Automated Negative (Negative); Blood Urine Negative (Negative); Color Urine Orange; Epithelial Cell Urine Auto 20-30 /lpf (0-5); Glucose Urine UA Negative (Negative); Ketones Urine Trace (Negative); Leukocyte Esterase Urine Trace (Negative); Nitrite Urine Positive (Negative); Protein Urine 1+ (Negative); Specific Gravity Urine > 1.045 (1.000-1.030); Urobilinogen Urine Negative (Negative); pH Urine 5.5 (4.5-7.5)
[2021-01-31 12:38] LABS: Bilirubin Urine 1+ (Negative)
[2021-01-31 12:45] LABS: Mucus Urine Present (None Prsent)
[2021-01-31] MEDS ORDERED: SODIUM CHLORIDE 0.9% 1000ML 1,000 ML IV ONE (12:49)
[2021-01-31] MEDS ORDERED: ALBUMIN HUMAN 5% 12.5 GM/250 ML VIAL IV ONE (12:57)
--- NOTE | 2021-01-31 13:02 | Anesthesiology Consultation ---
Date of Service January 31, 2021 History Surgery Operation Date: 01/31/21 14:00 Proposed Procedures p Exploratory Laparotomy - Maryann Hernández MD Height/Weight Height: 5 ft 11 in Weight: 102.5 kg Allergies Allergy/AdvReac Type Severity Reaction Status Date / Time acetaminophen AdvReac Intermediate DEPRESSION Unverified 01/31/21 11:42 adhesive AdvReac Intermediate BANDAIDS,TAPE-REALLY Verified 01/31/21 11:42 ADHERES TO SKIN,TURNS TO MUSH Medications Home Medications Medication Instructions Recorded Confirmed Last Taken acetaminophen [Tylenol] 0 mg PO QID PRN 01/31/21 01/31/21 01/31/21 cholecalciferol (vitamin D3) 50 mcg PO DAILY 01/31/21 01/31/21 01/31/21 [Vitamin D3] losartan 25 mg PO DAILY 01/31/21 01/31/21 01/31/21 oxycodone 5 mg PO Q4H PRN 01/31/21 01/31/21 01/31/21 Active Medications Generic Name Dose Route Start Last Admin Trade Name Freq PRN Reason Stop Dose Admin Sodium Chloride 1,000 mls @ 999 mls/hr 01/31/21 12:49 01/31/21 13:09 Nss 1000ml IV 01/31/21 13:49 999 mls/hr .Q1H1M ONE Administration Miscellaneous Information 1 ea 01/31/21 10:41 01/31/21 11:52 Piperacill/T[place]obac Consult Active N/A 03/02/21 10:40 1 ea UD PRN Administration Consult Past Medical History Medical History (Updated 01/31/21 @ 13:18 by Joie Grewal PA-C) Acute kidney failure Diverticulitis of colon with perforation HTN (hypertension) SBO (small bowel obstruction) Sciatica of left side Severe sepsis Patient is a 55-year-old male s/p laparoscopic hand-assisted resection of the sigmoid and rectum performed on the of this month at [facility]. Zach taveras was discharged on the . Since this past Friday he has been having significant worsening abdominal pain. Past Family History Family History (Updated 10/23/20 @ 11:25 by Jill Vargas PA-C) Mother Lung disease Past Surgical History Surgical History (Updated 12/07/20 @ 11:24 by Jill Vargas PA-C) History of appendectomy Inguinal hernia s/p repair x 3 Social History Smoking Status: Former smoker Hx Alcohol Use: Yes Alcohol type: beer alcohol intake frequency: holidays/special occasions only Hx Substance Use: No Physical Exam Vital Signs Last Vital Signs Temp 36.9 C 01/31/21 10:41 Pulse 123 H 01/31/21 10:41 Resp 18 01/31/21 12:00 BP 137/80 01/31/21 11:28 Pulse Ox 92 01/31/21 11:28 Testing Laboratory Results 01/31/21 10:44 01/31/21 10:44 PT 11.3 Seconds (9.0-12.0) 01/31/21 10:44 INR 1.1 (0.9-1.1) 01/31/21 10:44 APTT 34.1 Seconds (21.0-31.0) H 01/31/21 10:44 Urine Color [place] 01/31/21 12:05 Urine Appearance Clear (Clear) 01/31/21 12:05 Urine pH 5.5 (4.5-7.5) 01/31/21 12:05 Ur Specific [place] > 1.045 (1.000-1.030) H 01/31/21 12:05 Urine Protein 1+ (Negative) H 01/31/21 12:05 Urine Glucose (UA) Negative (Negative) 01/31/21 12:05 Urine Ketones Trace (Negative) H 01/31/21 12:05 Urine Nitrite Positive (Negative) A 01/31/21 12:05 Ur Leukocyte Esterase Trace (Negative) H 01/31/21 12:05 Urine WBC (Auto) 1-5 /hpf (0-5) 01/31/21 12:05 Urine RBC (Auto) 5-10 /hpf (0-4) H 01/31/21 12:05 U Hyaline Cast (Auto) 5-10 /lpf (0-5) H 01/31/21 12:05 U Epithel Cells (Auto) 20-30 /lpf (0-5) H 01/31/21 12:05 Urine Bacteria (Auto) Negative (Negative) 01/31/21 12:05 01/31/21 10:49 POC Glucose (other) 209 H Electrocardiogram Date: 01/31/21 Findings: + ST @ (121) Sinus tachycardia T wave abnormality, consider inferior ischemia Abnormal ECG When compared with ECG of 24-OCT-2020 06:19, Inverted T waves have replaced nonspecific T wave abnormality in Inferior leads Nonspecific T wave abnormality no longer evident in Lateral leads Chest X-Ray Date: 01/31/21 XR chest 1V portable CLINICAL HISTORY: SEPSIS COMPARISON STUDY: No previous studies for comparison. FINDINGS: The heart is normal in size. There are low lung volumes with mild basilar atelectasis. There is no failure. There is no lobar consolidation. There is suspected free intraperitoneal air. Correlate with recent surgical history. IMPRESSION: 1. Low lung volumes with mild basilar atelectasis 2. Suspected free intraperitoneal air. Correlate with recent surgical history
[2021-01-31] MEDS ORDERED: LIDOCAINE 2% 2 ML VIAL/AMP(20MG/ML) INFIL ONE (13:08)
[2021-01-31] MEDS ORDERED: NEOSTIGMINE METHYLSULFATE 5 MG/5 ML SYR ONE (13:08)
[2021-01-31] MEDS ORDERED: ROCURONIUM BROMIDE 10 MG/ML 5 ML VIAL IV ONE (13:08)
[2021-01-31] MEDS ORDERED: ONDANSETRON INJ 2 MG/ML 2 ML VIAL ONE (13:08)
[2021-01-31] MEDS ORDERED: MIDAZOLAM HCL 1 MG/ML 2ML VIAL ONE (13:08)
[2021-01-31] MEDS ORDERED: ETOMIDATE 2 MG/ML 20 ML VIAL IV ONE (13:08)
[2021-01-31] MEDS ORDERED: SUCCINYLCHOLINE CHLORIDE 20 MG/ML 10 ML VIAL IV ONE (13:08)
[2021-01-31] MEDS ORDERED: PROPOFOL IV EMULSION 10 MG/ML 20 ML VIAL IV ONE (13:08)
[2021-01-31] MEDS ORDERED: GLYCOPYRROLATE 0.2 MG/ML VIAL ONE (13:08)
[2021-01-31] MEDS ORDERED: fentaNYL citrate 100 MCG/2 ML VIAL ONE ×4 (13:08→15:33)
[2021-01-31] MEDS ORDERED: SODIUM CHLORIDE 0.9% 250 ML IV PRN (13:13)
[2021-01-31] MEDS ORDERED: BUPIVACAINE 0.5 % 5 MG/1 ML MPF 30ML VIAL ONE (13:16)
[2021-01-31] MEDS ORDERED: LIDOCAINE 1% LOCAL 20 ML VIAL ONE (13:16)
[2021-01-31] MEDS ORDERED: BACITRACIN OINT 15 GM TUBE ONE (13:16)
--- NOTE | 2021-01-31 13:16 | History & Physical Report ---
Date of Service January 31, 2021 Assessment & Plan (1) Leakage of surgical anastomosis of digestive tract: Wagner is currently postop day #8 status post laparoscopic-assisted sigmoid resection for history of complicated diverticulitis by Dr. Sweeney this [facility]. Patient presented to the emergency department with continued and increasing abdominal pain postoperatively. CT scan showing evidence of anastomotic leak with large pelvic fluid collections concerning for abscesses largest measuring 9 cm. There is moderate amount of pneumoperitoneum. Patient is afebrile in the ED however tachycardic and leukocytosis of 10,000. Unable to transfer to [facility] via helicopter due to weather and ground transport would take 4 to 5 hours. Plan: Dr. Sheridan had spoken with Dr. Hernández in regards to transfer issues and needing to take patient to the operating room. Plan for exploratory laparotomy, drainage of intra-abdominal abscesses, temporary colostomy. Dr. Heránndez had informed patient and his of procedure and risks and informed consent obtained. Patient had [id number] Covid test which was negative. Given patient's CT scan findings and sepsis do not need official Covid test prior to taken to the OR. Discussed with the OR team and anesthesia. Patient will be transferred to [facility] ICU following the procedure. Dr. Hernández has seen and examined patient and agrees with above. (2) Sepsis: History of Present Illness I ( Maryann Hernández MD) got a for consult spot-op resection sigmoid colon, anastomotic leak, I reviewed pt's H/P, labs, CT scan with pt, I recommend to do emergent exploratory laparotomy, colostomy, D/W benefits, risks nad alternatives of the surgery, the risks - infection, bleeding, abscess, sepsis, multiple organs failure, DVT, [place], , pt understood, he and his agree with the plan, I answered all questions, his surgeon Dr. Sweeney called me, he recommend to do surgery at [facility], Chief Complaint: Abdominal pain status post laparoscopic-assisted sigmoid resection at [place] Primary Care Provider: [place], Wagner is a 55-year-old male who recently underwent laparoscopic-assisted sigmoid resection at [place] by Dr. Sweeney on January 23 for history of complicated diverticulitis in September. Patient was hospitalized until Friday the at [facility]. Wagner states that he had abdominal pain since being discharged home which increased in nature and severity especially this morning. States he had liquid stools since the surgery however denies of any rectal bleeding or blood in the stools. Denies of any difficulty urinating. Took narcotics and Tylenol without any relief. Denies of any fever, chills, nausea, vomiting, chest pain, shortness of breath, difficulty breathing, difficulty urinating, blood in urine, burning on urination. Had negative COVID test prior to his surgery in [place]. He had a CT scan of abdomen and pelvis which showed concern for anastomotic leak with large pelvic fluid collections concerning for abscess with largest measuring 9 cm. Leukocytosis of 10K, tachycardic with HR in 120's, afebrile in ED. Lactic acid wnl. Dr. Hernández discussed patient with Dr. Sweeney from [place] in which transfer is unlikely by helicopter due to weather and ground transport will take 4-5 hours. Would like patient transferred once out of the OR to [place] ICU. Allergies Allergy/AdvReac Type Severity Reaction Status Date / Time acetaminophen AdvReac Intermediate DEPRESSION Unverified 01/31/21 11:42 adhesive AdvReac Intermediate BANDAIDS,TAPE-REALLY Verified 01/31/21 11:42 ADHERES TO SKIN,TURNS TO MUSH Home Medications Medication Instructions Recorded Confirmed Type acetaminophen [Tylenol] 0 mg PO QID PRN 01/31/21 01/31/21 History cholecalciferol (vitamin D3) 50 mcg PO DAILY 01/31/21 01/31/21 History [Vitamin D3] losartan 25 mg PO DAILY 01/31/21 01/31/21 History oxycodone 5 mg PO Q4H PRN 01/31/21 01/31/21 History Past Med/Surg History Medical History (Updated 01/31/21 @ 13:18 by Joie Grewal PA-C) Acute kidney failure Diverticulitis of colon with perforation HTN (hypertension) SBO (small bowel obstruction) Sciatica of left side Severe sepsis Surgical History (Updated 10/23/20 @ 11:24 by Jill Vargas PA-C) History of appendectomy Inguinal hernia s/p repair x 3 Family History (Updated 10/23/20 @ 11:25 by Jill Vargas PA-C) Mother Lung disease Social History (Updated 10/23/20 @ 11:26 by Jill Vargas PA-C) Smoking Status: Former smoker Tobacco Type: Cigarettes packs per day: 1.5; Years Smoked: 30; Second Hand Exposure: No; Hx Alcohol Use: Yes Alcohol type: beer Alcohol Intake Frequency: Monthly or Less Hx Substance Use: No Preferred Language: Welsh Communication Ability: Effective Riveter Required: No Beliefs That Will Affect Care: None marital status: Current Living Situation: Spouse current occupational status: employed 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 Feels Safe at Home: Yes Assistive Devices: Glasses and Oxygen - Continuous Review of Systems Review of Systems: All systems reviewed & are unremarkable except as noted in HPI & below Physical Exam Constitutional: + ill appearing and cooperative; no acute distress Respiratory: normal respiratory effort, lungs clear to auscultation normal respiratory effort; no respiratory distress and no labored breathing Cardiovascular: Rate/Rhythm: regular rhythm and + tachycardic Gastrointestinal (Abdomen): Inspection/Auscultation: + abdomen distended and + abdominal surgical incision (laparoscopic incisions with glue present) Percussion/Palpation: + abdomen tender, + guarding and abdomen soft; abdomen not rigid Skin: no rashes, warm and dry no jaundice Psychiatric: A+Ox3, euthymic affect Results & Data Results & Data ([facility]) Vital Signs (Past 12 Hours) Vital Signs Temp Pulse Resp BP BP Pulse Ox 01/31/21 12:00 18 01/31/21 11:28 18 137/80 92 01/31/21 10:41 36.9 C 123 H 28 H 137/80 92 Laboratory Results 01/31/21 01/31/21 01/31/21 Range/Units 12:06 12:05 10:49 WBC (4.8-10.8) K/uL RBC (4.7-6.1) M/uL Hgb (14.0-18.0) g/dL POC Hgb 9.9 L (14.0-18.0) g/dl Hct (42-52) % POC Hct 29 L (42-52) % MCV (80-100) fL MCH (25-34) pg MCHC (32-36) g/dL RDW Std Deviation (36.4-46.3) fL RDW Coeff of Kirstin (11.5-14.5) % Plt Count (130-400) K/uL MPV (7.4-10.4) fL Immature Gran % (Auto) % Neut % (Auto) % Lymph % (Auto) % [place] % (Auto) % Eos % (Auto) % Baso % (Auto) % Neut # (Auto) (1.4-6.5) K/uL Lymph # (Auto) (1.2-3.4) K/uL [place] # (Auto) (0.11-0.59) K/uL Eos # (Auto) (0-0.5) K/uL Baso # (Auto) (0-0.2) K/uL Immature Gran # (Auto) (0.00-0.02) K/uL PT (9.0-12.0) Seconds INR (0.9-1.1) APTT (21.0-31.0) Seconds PTT Ratio POC Sodium 136 (135-144) mmol/L Sodium (136-145) mmol/L POC Potassium 3.5 (3.3-5.0) mmol/L Potassium (3.5-5.1) mmol/L POC Chloride 100 L (101-112) mmol/L Chloride (98-107) mmol/L Carbon Dioxide (21-32) mmol/L POC Total CO2 25 (24-31) mmol/L Anion Gap (3-11) POC Anion Gap 16.0 (16-25) mmol/L POC BUN 17 (7-18) mg/dl BUN (7-18) mg/dl Creatinine (0.6-1.4) mg/dl POC Creatinine 0.8 (0.6-1.3) mg/dl Est Cr Clr Drug Dosing ml/min Est GFR ( Amer) Est GFR (Non-Af Amer) BUN/Creatinine Ratio (10-20) Glucose (70-99) mg/dl POC Glucose (other) 209 H (70-99) mg/dl Lactate (0.4-2.0) mmol/L Calcium (8.5-10.1) mg/dl POC Ioniz Calcium Joshua 1.12 (1.12-1.32) mmol/l Magnesium (1.8-2.4) mg/dl Total Bilirubin (0.2-1) mg/dl AST (15-37) U/L ALT (12-78) U/L Alkaline Phosphatase (45-117) U/L Troponin I (0-0.045) ng/ml Total Protein (6.4-8.2) gm/dl Albumin (3.4-5.0) gm/dl Globulin (2.5-4.0) gm/dl Albumin/Globulin Ratio (0.9-2) Procalcitonin (0-0.5) ng/ml Urine Color [place] Urine Appearance Clear (Clear) Urine pH 5.5 (4.5-7.5) Ur Specific [place] > 1.045 H (1.000-1.030) Urine Protein 1+ H (Negative) Urine Glucose (UA) Negative (Negative) Urine Ketones Trace H (Negative) Urine Blood Negative (Negative) Urine Nitrite Positive A (Negative) Urine Bilirubin 1+ H (Negative) Urine Urobilinogen Negative (Negative) Ur Leukocyte Esterase Trace H (Negative) Urine WBC (Auto) 1-5 (0-5) /hpf Urine RBC (Auto) 5-10 H (0-4) /hpf U Hyaline Cast (Auto) 5-10 H (0-5) /lpf U Epithel Cells (Auto) 20-30 H (0-5) /lpf Urine Bacteria (Auto) Negative (Negative) Urine Mucus Present A (None Prsent) SARS-CoV-2 Ag (Rapid) Negative (Negative) 01/31/21 01/31/21 01/31/21 Range/Units 10:44 10:44 10:44 WBC (4.8-10.8) K/uL RBC (4.7-6.1) M/uL Hgb (14.0-18.0) g/dL POC Hgb (14.0-18.0) g/dl Hct (42-52) % POC Hct (42-52) % MCV (80-100) fL MCH (25-34) pg MCHC (32-36) g/dL RDW Std Deviation (36.4-46.3) fL RDW Coeff of Kirstin (11.5-14.5) % Plt Count (130-400) K/uL MPV (7.4-10.4) fL Immature Gran % (Auto) % Neut % (Auto) % Lymph % (Auto) % [place] % (Auto) % Eos % (Auto) % Baso % (Auto) % Neut # (Auto) (1.4-6.5) K/uL Lymph # (Auto) (1.2-3.4) K/uL [place] # (Auto) (0.11-0.59) K/uL Eos # (Auto) (0-0.5) K/uL Baso # (Auto) (0-0.2) K/uL Immature Gran # (Auto) (0.00-0.02) K/uL PT (9.0-12.0) Seconds INR (0.9-1.1) APTT (21.0-31.0) Seconds PTT Ratio POC Sodium (135-144) mmol/L Sodium 136 (136-145) mmol/L POC Potassium (3.3-5.0) mmol/L Potassium 3.4 L (3.5-5.1) mmol/L POC Chloride (101-112) mmol/L Chloride 105 (98-107) mmol/L Carbon Dioxide 23 (21-32) mmol/L POC Total CO2 (24-31) mmol/L Anion Gap 8.0 (3-11) POC Anion Gap (16-25) mmol/L POC BUN (7-18) mg/dl BUN 16 (7-18) mg/dl Creatinine 1.01 (0.6-1.4) mg/dl POC Creatinine (0.6-1.3) mg/dl Est Cr Clr Drug Dosing 99.5 ml/min Est GFR ( Amer) 95.9 Est GFR (Non-Af Amer) 82.8 BUN/Creatinine Ratio 16.2 (10-20) Glucose 199 H (70-99) mg/dl POC Glucose (other) (70-99) mg/dl Lactate 1.9 (0.4-2.0) mmol/L Calcium 8.2 L (8.5-10.1) mg/dl POC Ioniz Calcium [place] (1.12-1.32) mmol/l Magnesium 1.9 (1.8-2.4) mg/dl Total Bilirubin 2.1 H (0.2-1) mg/dl AST 83 H (15-37) U/L ALT 109 H (12-78) U/L Alkaline Phosphatase 158 H (45-117) U/L Troponin I < 0.015 (0-0.045) ng/ml Total Protein 6.6 (6.4-8.2) gm/dl Albumin 2.5 L (3.4-5.0) gm/dl Globulin 4.1 H (2.5-4.0) gm/dl Albumin/Globulin Ratio 0.6 L (0.9-2) Procalcitonin 1.00 H (0-0.5) ng/ml Urine Color Urine Appearance (Clear) Urine pH (4.5-7.5) Ur Specific [place] (1.000-1.030) Urine Protein (Negative) Urine Glucose (UA) (Negative) Urine Ketones (Negative) Urine Blood (Negative) Urine Nitrite (Negative) Urine Bilirubin (Negative) Urine Urobilinogen (Negative) Ur Leukocyte Esterase (Negative) Urine WBC (Auto) (0-5) /hpf Urine RBC (Auto) (0-4) /hpf U Hyaline Cast (Auto) (0-5) /lpf U Epithel Cells (Auto) (0-5) /lpf Urine Bacteria (Auto) (Negative) Urine Mucus (None Prsent) SARS-CoV-2 Ag (Rapid) (Negative) 01/31/21 01/31/21 Range/Units 10:44 10:44 WBC 10.98 H (4.8-10.8) K/uL RBC 3.37 L (4.7-6.1) M/uL Hgb 9.9 L (14.0-18.0) g/dL POC Hgb (14.0-18.0) g/dl Hct 29.3 L (42-52) % POC Hct (42-52) % MCV 86.9 (80-100) fL MCH 29.4 (25-34) pg MCHC 33.8 (32-36) g/dL RDW Std Deviation 46.2 (36.4-46.3) fL RDW Coeff of Kirstin 14.9 H (11.5-14.5) % Plt Count 412 H (130-400) K/uL MPV 9.6 (7.4-10.4) fL Immature Gran % (Auto) 0.5 % Neut % (Auto) 83.2 % Lymph % (Auto) 6.7 % [place] % (Auto) 9.4 % Eos % (Auto) 0.1 % Baso % (Auto) 0.1 % Neut # (Auto) 9.13 H (1.4-6.5) K/uL Lymph # (Auto) 0.74 L (1.2-3.4) K/uL [place] # (Auto) 1.03 H (0.11-0.59) K/uL Eos # (Auto) 0.01 (0-0.5) K/uL Baso # (Auto) 0.01 (0-0.2) K/uL Immature Gran # (Auto) 0.06 H (0.00-0.02) K/uL PT 11.3 (9.0-12.0) Seconds INR 1.1 (0.9-1.1) APTT 34.1 H (21.0-31.0) Seconds PTT Ratio 1.3 POC Sodium (135-144) mmol/L Sodium (136-145) mmol/L POC Potassium (3.3-5.0) mmol/L Potassium (3.5-5.1) mmol/L POC Chloride (101-112) mmol/L Chloride (98-107) mmol/L Carbon Dioxide (21-32) mmol/L POC Total CO2 (24-31) mmol/L Anion Gap (3-11) POC Anion Gap (16-25) mmol/L POC BUN (7-18) mg/dl BUN (7-18) mg/dl Creatinine (0.6-1.4) mg/dl POC Creatinine (0.6-1.3) mg/dl Est Cr Clr Drug Dosing ml/min Est GFR ( Amer) Est GFR (Non-Af Amer) BUN/Creatinine Ratio (10-20) Glucose (70-99) mg/dl POC Glucose (other) (70-99) mg/dl Lactate (0.4-2.0) mmol/L Calcium (8.5-10.1) mg/dl POC Ioniz Calcium [place] (1.12-1.32) mmol/l Magnesium (1.8-2.4) mg/dl Total Bilirubin (0.2-1) mg/dl AST (15-37) U/L ALT (12-78) U/L Alkaline Phosphatase (45-117) U/L Troponin I (0-0.045) ng/ml Total Protein (6.4-8.2) gm/dl Albumin (3.4-5.0) gm/dl Globulin (2.5-4.0) gm/dl Albumin/Globulin Ratio (0.9-2) Procalcitonin (0-0.5) ng/ml Urine Color Urine Appearance (Clear) Urine pH (4.5-7.5) Ur Specific [place] (1.000-1.030) Urine Protein (Negative) Urine Glucose (UA) (Negative) Urine Ketones (Negative) Urine Blood (Negative) Urine Nitrite (Negative) Urine Bilirubin (Negative) Urine Urobilinogen (Negative) Ur Leukocyte Esterase (Negative) Urine WBC (Auto) (0-5) /hpf Urine RBC (Auto) (0-4) /hpf U Hyaline Cast (Auto) (0-5) /lpf U Epithel Cells (Auto) (0-5) /lpf Urine Bacteria (Auto) (Negative) Urine Mucus (None Prsent) SARS-CoV-2 Ag (Rapid) (Negative) Diagnostic Findings CT OF THE ABDOMEN AND PELVIS WITH CONTRAST CLINICAL HISTORY: Severe abdominal pain status post sigmoid resection. COMPARISON STUDY: CT of the abdomen and pelvis October 26, 2020. TECHNIQUE: Following IV administration of 120 mL of Optiray-320, axial images of the abdomen and pelvis were obtained from the lung bases to the proximal femurs. Images were reviewed in the axial, sagittal, and coronal planes. IV contrast was administered without complication. Automated exposure control was utilized for the study. A dose lowering technique was utilized adhering to the principles of ALARA. CT DOSE: 1515.14 mGy.cm FINDINGS: Please note that the chest CT will be reported separately. A subcentimeter right hepatic lobe lesion is too small to characterize but is likely benign. There is no biliary or pancreatic ductal dilatation. No peripancreatic infiltration is noted. The spleen, adrenal glands and left kidney are normal. A 1.4 cm water attenuation right renal lesion favors a cyst. The gallbladder is mildly distended. Major vasculature is patent. There is moderate aortoiliac atherosclerotic plaque. There are postoperative findings consistent with sigmoid colon resection. There is moderate pneumoperitoneum with extraluminal gas adjacent to the sigmoid colon anastomosis. Note is made of a suspected leak just superior to the anastomosis on image 415. There is adjacent extraluminal gas. Multiple lower abdominal and pelvic fluid collections contain gas and fluid. The largest is a lower abdominal fluid collection measures 9.4 x 5.9 cm. Several of these collections likely communicate. Interloop fluid is noted within the lower abdomen and pelvis. There is mesenteric infiltration. Wall thickening of several small bowel loops is noted. Fluid within the left paracolic gutter and left anterior pararenal space is noted. This likely tracks from the pelvis. There is no evidence for a bowel obstruction. The appendix is surgically absent. No suspicious osseous lesions are present. There is no lymphadenopathy. IMPRESSION: Findings suggestive of an anastomotic leak with leak along the superior aspect of the sigmoid anastomosis with extraluminal gas and multiple lower abdominal and pelvic fluid collections suggestive of abscesses that measure up to 9.4 x 5.9 cm. Moderate pneumoperitoneum. Fluid extends superiorly within the left paracolic gutter and left anterior pararenal space. Associated mesenteric infiltration and hyperemia as well as small bowel wall thickening which may be reactive. No bowel obstruction. Surgical consultation is recommended. Findings discussed with Dr. Fitzpatrick at time of dictation. Code Status & VTE Plan VTE Prophylaxis Plan VTE Prophylaxis will be ordered: Yes
[2021-01-31] MEDS ORDERED: fentaNYL citrate 100 MCG/2 ML VIAL IV PRN (13:25)
[2021-01-31] MEDS ORDERED: ATROPINE SULFATE 0.1 MG/ML 10ML SYR IV PRN (13:25)
[2021-01-31] MEDS ORDERED: ePHEDrine sulfate 50 MG/ML AMP IV PRN (13:25)
[2021-01-31] MEDS ORDERED: HYDROmorphone INJ 1 MG/ML SYRINGE IV PRN ×2 (13:25→17:11)
[2021-01-31] MEDS ORDERED: ONDANSETRON INJ 2 MG/ML 2 ML VIAL IV PRN (13:25)
[2021-01-31] MEDS ORDERED: PIPERACILLIN/TAZOBACTAM 3.375 GM in DEXTROSE 5% 100 ML/100 ML BAG IV STA (13:32)
--- NOTE | 2021-01-31 13:32 | History & Physical Bridge Note ---
Date of Service January 31, 2021 History & Physical Bridge Note I have examined the patient, reviewed the History & Physical and in the interval since the performance of the History & Physical I have noted the following changes of clinical significance: no changes noted
[2021-01-31] MEDS ORDERED: VANCOMYCIN HCL 1000MG/20ML VIAL ONE (13:41)
--- NOTE | 2021-01-31 14:15 | Procedure Note ---
Procedure Note Date of Service January 31, 2021 Radial arterial line placed in OR 11 prio to induction in preparation for emergent exploratory laparotomy with Dr. Hernández. Left wrist prepped with chlorhexidine and draped with sterile towels. Site infiltrated with 1 cc of 1% lidocaine. 20 G angiocath placed under sterile technique utilizing sterile gloves, surgical hats and masks. Catheter threaded using seldinger technique with return of pulsatile, bright red blood. Site covered with occlusive dressing and taped in place. Waveform consistent with correct arterial placement. After placement, fingers of procedural hand had normal perfusion. Patient tolerated procedure well without complications. Mckenna Pelaez MD, PhD Anesthesiologist Coding
[2021-01-31] MEDS ORDERED: ROCURONIUM BROMID 50MG/5ML SYR ONE (14:23)
[2021-01-31] MEDS ORDERED: PHENYLEPHRINE 100MCG/ML 5ML SYR ONE (14:42)
[2021-01-31] MEDS ORDERED: KETAMINE 50 MG/5 ML SYRINGE ONE (15:07)
[2021-01-31 16:26] LABS: iSTAT Arterial Blood Gas HCO3 23 meg/L (19-24); iSTAT Arterial Blood Gas pCO2 36 mmHg (35-46); iSTAT Arterial Blood Gas pH 7.41 (7.35-7.45); iSTAT Arterial Blood Gas pO2 160 mmHg (80-95); iSTAT Carbon Dioxide 24 mmol/L (24-31); iSTAT Hematocrit 23 % (42-52); iSTAT Hemoglobin 7.8 g/dl (14.0-18.0); iSTAT Potassium 3.6 mmol/L (3.3-5.0); iSTAT Sodium 135 mmol/L (135-144)
[2021-01-31 16:26] LABS: iSTAT Arterial Blood Gas HCO3 27 meg/L (19-24); iSTAT Arterial Blood Gas pCO2 40 mmHg (35-46); iSTAT Arterial Blood Gas pH 7.43 (7.35-7.45); iSTAT Arterial Blood Gas pO2 > 420 mmHg (80-95); iSTAT Carbon Dioxide 28 mmol/L (24-31); iSTAT Hematocrit 25 % (42-52); iSTAT Hemoglobin 8.5 g/dl (14.0-18.0); iSTAT Sodium 135 mmol/L (135-144)
--- NOTE | 2021-01-31 16:26 | Post Operative Brief Note ---
Immediate Post Op Note v1 Date of Surgery January 31, 2021 Pre & Post Diagnosis Operation Date: 01/31/21 14:00 Pre-Op Diagnosis: Abdominal pain status post sigmoid colectomy, anastomotic leak, abscess and hematoma Post-Op Diagnosis: anastomotic leak, abscess, hematoma I identified the patient and participated in the time-out.: Yes Procedure Operation Date: 01/31/21 14:00 Actual Procedures p Exploratory Laparotomy with takedown of anastomosis, creation of colostomy, insertion of JAZMINE drain - Maryann Hernández MD Surgeon Maryann Hernández MD Air Carrier Inspector JUANA Hager Estimated Blood Loss 20 Findings Consistent with Post-Op Diagnosis anastomotic leak, abscess, hematoma Fluids 3000ml + one unit RBC Specimens colon anastomosis Drains Rosas Catheter and Jonah-Aguilar Drain Anesthesia Type General Complications none Disposition Accompanied Patient To Recovery: Yes Disposition: Recovery Room Overlapping Procedure I was immediately available: during the entire case.
[2021-01-31] MEDS ORDERED: STAT IV Infusion **Titration per Protocol STA ×2 (16:45→16:59)
[2021-01-31] MEDS ORDERED: PROPOFOL BOLUS FROM BAG IV PRN (16:45)
[2021-01-31] MEDS ORDERED: PROPOFOL IV EMULSION 10 MG/ML 100 ML VIAL IV ONE (16:49)
[2021-01-31] MEDS: propofoL 1,000 MG/100 ML VIAL IV SCH ×2 (16:56→19:01)
[2021-01-31] MEDS ORDERED: ICU PROTOCOL FOR HYPERGLYCEMIA PRN (16:59)
[2021-01-31] MEDS ORDERED: fentaNYL DRIP 1,250 MCG/250 ML BAG IV SCH (17:00)
[2021-01-31] MEDS ORDERED: NORMOSOL-R 1,000 ML IV SCH (17:00)
--- NOTE | 2021-01-31 17:08 | Critical Care Consultation ---
Date of Consultation January 31, 2021 Assessment & Plan (1) Leakage of surgical anastomosis of digestive tract: Reason Critically Ill: 55-year-old male who recently underwent laparoscopic- assisted sigmoid resection for complicated diverticulitis at [facility] on 01/23; he was admitted to [facility] on 01/31 for anastomotic leak. Patient was transferred to the ICU after exploratory laparotomy for anastomotic breakdown, creation of colostomy and insertion of JAZMINE drain, for post-operative management. He will be transferred to [facility] ICU today for further eval/management, as his original surgery (performed by Dr. Jatinder Sweeney) was done there. Neuro - remains ventilated and sedated following exploratory laparotomy s/p ex lap - ordered Proprofol for ongoing sedation - Dilaudid 1mg IV x1 ordered for pain control - PRN pain regimen (Tylenol/Roxicodone/Dilaudid) for ongoing pain Cardiac - tachycardic to 120s and hypertensive to 180s/100s but otherwise hemodynamically stable on current ventilation settings following ex lap - continue maintenance IVFs: LR @125cc/hr - ongoing telemetry monitoring while in ICU Respiratory - ventilation settings: AC/16/450/5/50 - ABG today appropriate: 7.36/45/89/25/96 GI - s/p exploratory laparotomy for anastomotic breakdown, creation of colostomy and insertion of JAZMINE drain - JAZMINE drain in place, dressing c/d/i, receiving pain medications as mentioned above - doing well overall in immediate post-operative period - NPO - close monitoring while in ICU RENAL/LYTES - Renal function normal. No significant electrolyte derangement. - Replace lytes as needed - No concerns at this time - continue michaud ENDO - no history of diabetes or thyroid disease - no concerns at this time HEME - Hgb 9.9 --> 7.8 following ex lap, improved to 10.3 s/p 1unit pRBCs, no signs of active bleeding - continue to monitor with serial CBCs ID - sepsis: tachycardic/hypertensive/tachypneic on presentation to ED, with procalcitonin 1.00 and CTA abd/pelv showing sigmoid anastomotic leak with extraluminal gas and multiple lower abdominal/pelvic fluid collections suggestive of abscesses - s/p exploratory laparotomy with anastomotic breakdown and abdominal washout - continue Zosyn post-operatively - ordered Caspofungin 70mg IV x1 - blood cx, fungal blood cx, peritoneal fluid cx pending - Monitor fever curve LINES/IV ACCESS - JAZMINE drain, R radial a-line, PIV, OG tube, michaud intact. DVT PROPHYLAXIS - SCDs CODE STATUS: full code Thank you for allowing us to be part of this patient's care. Please refer to Dr. Russo's documentation for any further recommendations. (2) Sepsis: Supervising Physician Co-Signing Physician Notes Dr. Oliver was resident physician during care of patient. I separately evaluated patient for aguillon portions of the history and the exam. I was present during the critical portion of medical decision making, and I discussed the case with the resident. I generally agree with the findings and plan. Added fungal culture and caspofungin 70 mg load x1 reviewed postoperative labs, received 1 unit packed red blood cells intraoperatively postop H&H 10.3 and 30.4 respectively. Patient was ultimately accepted by a [facility] in transfer for intra-abdominal sepsis from an anastomotic leak, reported as gross intra-abdominal contamination already given Zosyn in emergency department. I have personally spent 40 minutes of critical care time in the direct management of this patient. This is a life/limb threatening event. This includes time spent evaluating patient, direct bedside care, chart review, placing orders, interpretation of diagnostic studies, discussion with consultants, patient, and/or family members regarding treatment decisions, as well as other required patient management activities. This time is exclusive of all separately billable procedures, and teaching time and separate from and in addition to any other critical care service time. History of Present Illness Reason for Consultation: post-op care following exploratory laparotomy Requesting Physician: Dr. Hernández Attending Physician: Maryann Hernández MD History of Present Illness Wagner is a 55-year-old male who recently underwent laparoscopic-assisted sigmoid resection for complicated diverticulitis at [facility] on 01/23; he was admitted to [facility] on 01/31 for anastomotic leak. Patient was transferred to the ICU after exploratory laparotomy for anastomotic breakdown, creation of colostomy and insertion of JAZMINE drain, for post-operative management. The patient reports feeling weak/fatigued after surgery but denies fever/chills, chest pain, shortness of breath, N/V. Patient is currently tachycardic to 120s and hypertensive to 180s/100s but is generally hemodynamically stable - ventilated and sedated. Allergies Allergy/AdvReac Type Severity Reaction Status Date / Time acetaminophen AdvReac Intermediate DEPRESSION Unverified 01/31/21 11:42 adhesive AdvReac Intermediate BANDAIDS,TAPE-REALLY Verified 01/31/21 11:42 ADHERES TO SKIN,TURNS TO MUSH Home Medications Medication Instructions Recorded Confirmed Type acetaminophen [Tylenol] 0 mg PO QID PRN 01/31/21 01/31/21 History cholecalciferol (vitamin D3) 50 mcg PO DAILY 01/31/21 01/31/21 History [Vitamin D3] losartan 25 mg PO DAILY 01/31/21 01/31/21 History oxycodone 5 mg PO Q4H PRN 01/31/21 01/31/21 History Patient History Medical History (Updated 01/31/21 @ 13:43 by Lan Fitzpatrick DO) Acute kidney failure Diverticulitis of colon with perforation HTN (hypertension) SBO (small bowel obstruction) Sciatica of left side Severe sepsis Surgical History (Updated 10/23/20 @ 11:24 by Jill Vargas PA-C) History of appendectomy Inguinal hernia s/p repair x 3 Family History (Updated 10/23/20 @ 11:25 by Jill Vargas PA-C) Mother Lung disease Social History (Updated 10/23/20 @ 11:26 by Jill Vargas PA-C) Smoking Status: Former smoker Tobacco Type: Cigarettes packs per day: 1.5; Years Smoked: 30; Second Hand Exposure: No; Hx Alcohol Use: Yes Alcohol type: beer Alcohol Intake Frequency: Monthly or Less Hx Substance Use: No Preferred Language: Amharic Communication Ability: Effective Tree Feller Required: No Beliefs That Will Affect Care: None marital status: Current Living Situation: Spouse current occupational status: employed 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 Physical Exam Physical Exam: General: Intubated/sedated HEENT: Atraumatic, airway obscured by endotracheal tube Pulm: No respiratory distress on vent, vent settings reviewed Cardiac: Tachycardic rate, normal rhythm, -mrg. Radial pulses intact and symmetrical. Abdominal: mildly distended but not hard/rigid, dressing overlying laparotomy incision is c/d/i Skin: warm, dry Results & Data Results & Data ([facility]) Vital Signs (Past 12 Hours) Vital Signs Temp Pulse Pulse Resp BP BP Pulse Ox 01/31/21 13:26 37 C 112 H 24 170/85 H 98 01/31/21 12:00 18 01/31/21 11:28 18 137/80 92 01/31/21 10:41 36.9 C 123 H 28 H 137/80 92 Resident Activity Tracking Resident Involvement: Resident Care Provided Care Provided: Adult Hospital Medicine (1) Sepsis Sepsis acute organ dysfunction status: unspecified Sepsis type: sepsis due to unspecified organism Qualified Code(s): A41.9 - Sepsis, unspecified organism
[2021-01-31] MEDS ORDERED: HYDROmorphone INJ 1 MG/ML SYRINGE ONE (17:10)
[2021-01-31] MEDS ORDERED: HYDROmorphone INJ 1 MG/ML SYRINGE IV STA (17:10)
[2021-01-31] MEDS ORDERED: ACETAMINOPHEN 325 MG TAB PO PRN (17:11)
--- NOTE | 2021-01-31 17:11 | Billing Data ---
Date of Service January 31, 2021 Coding Level of Care Code Critical Care 1st - mins
[2021-01-31] MEDS ORDERED: LACTATED RINGER'S 1,000 ML IV SCH (17:15)
[2021-01-31 17:22] LABS: iSTAT Art Bld Gas pCO2 Correct 44 mmHg (35-46); iSTAT Art Bld Gas pH Corrected 7.367 (7.35-7.45); iSTAT Arterial Blood Gas HCO3 25 meg/L (19-24); iSTAT Arterial Blood Gas pCO2 45 mmHg (35-46); iSTAT Arterial Blood Gas pH 7.36 (7.35-7.45); iSTAT Arterial Blood Gas pO2 89 mmHg (80-95); iSTAT Arterial Blood Gas pO2 C 86; iSTAT Carbon Dioxide 27 mmol/L (24-31); iSTAT FiO2 50 %; iSTAT Hematocrit 28 % (42-52); iSTAT Hemoglobin 9.5 g/dl (14.0-18.0); iSTAT Site Art Line; iSTAT Sodium 138 mmol/L (135-144)
[2021-01-31] MEDS ORDERED: CASPOFUNGIN 70 MG in SODIUM CHLORIDE 0.9% 250 ML IV STA (17:30)
[2021-01-31] MEDS ORDERED: oxyCODONE HCL IR 5 MG TAB (IMMEDIATE RELEASE) PO PRN (17:34)
--- NOTE | 2021-01-31 17:37 | Anesthesiology Progress Note ---
Date of Service January 31, 2021 Anesthesia Post Procedure Vital Signs Vital Signs: Temp Pulse Pulse Resp BP BP Pulse Ox 01/31/21 17:01 128 H 98 01/31/21 16:59 125 H 182/102 H 97 01/31/21 16:56 124 H 97 01/31/21 16:54 124 H 177/101 H 98 01/31/21 16:51 123 H 97 01/31/21 16:49 121 H 192/119 H 99 01/31/21 16:48 116 H 99 01/31/21 16:43 115 H 126/74 100 01/31/21 16:40 103 H 16 97 01/31/21 13:26 37 C 112 H 24 170/85 H 98 01/31/21 12:00 18 01/31/21 11:28 18 137/80 92 01/31/21 10:41 36.9 C 123 H 28 H 137/80 92 Pain Intensity Abdomen: Pain Intensity: 8 Transfer of Care Handoff Completed per policy Notes Mental Status: see notes below Patient Amnestic to Procedure: Yes Nausea / Vomiting: adequately controlled Pain: adequately controlled Airway Patency, RR, SpO2: stable & adequate BP & HR: stable & adequate Hydration State: stable & adequate Anesthetic Complications: no major complications apparent and see Notes below Notes: Patient taken direct to ICU from operating room intubated and sedated. Sign out provided to ICU from JESÚS Alves. Pt stable throughout intraoperative course.
[2021-01-31 17:52] LABS: Hematocrit (blood only) 30.4 % (42-52); Hemoglobin 10.3 g/dL (14.0-18.0); Mean Corpuscular Hemoglobin 29.4 pg (25-34); Mean Corpuscular Volume 86.9 fL (80-100); Mean Platelet Volume 9.2 fL (7.4-10.4); Platelet Count 381 K/uL (130-400); RDW Standard Deviation 46.7 fL (36.4-46.3); White Blood Count 13.59 K/uL (4.8-10.8)
[2021-01-31] MEDS ORDERED: PIPERACILLIN/TAZOBACTAM 3.375 GM in DEXTROSE 5% 100 ML IV SCH (18:00)
[2021-01-31 18:09] LABS: Mean Corpuscular Hgb Conc 33.9 g/dL (32-36)
[2021-01-31 18:20] LABS: Albumin Globulin Ratio 0.7 (0.9-2); Albumin Level 2.5 gm/dl (3.4-5.0); BUN Creatinine Ratio 17.7 (10-20); Bilirubin,Total 2.6 mg/dl (0.2-1); Creatinine Clr Calc Pharmacy 115.6 ml/min; Est GFR (African American) 111.8; Est GFR (Non-African American) 96.5; Globulin 3.6 gm/dl (2.5-4.0); Total Protein 6.1 gm/dl (6.4-8.2)
--- NOTE | 2021-02-01 05:30 | Operative Report (OR) ---
DATE OF OPERATION: 01/31/2021 PREOPERATIVE DIAGNOSIS: Post status sigmoid colectomy, anastomosis leak, abscess. POSTOPERATIVE DIAGNOSIS: Post status sigmoid colectomy, anastomosis leak, abscess, hematoma. OPERATION: Exploratory laparotomy, takedown colon to rectum anastomosis, create a colostomy, JAZMINE drainage x1. SURGEON: Maryann Hernández MD. TODDLER NANNY: Joie Grewal PA-C. ANESTHESIA: General. ESTIMATED BLOOD LOSS: About 20 mL. FINDINGS: Colon to rectum anastomosis leak, abscess with hematoma. INDICATIONS FOR THE PROCEDURE: This is a 55-year-old gentleman who had a sigmoid colectomy about 1 week ago by another surgeon at [facility], the patient came to the hospital ER with significant abdominal pain and patient developed sepsis. the Heart rate 130 min. The patient had a CT scan diagnosis, anastomosis leak with abscess. Once I reviewed the patient's history and physical exam, talked to the patient and also talked to the patient's surgeon on the phone, he recommended to do the procedure at this hospital because of transportation issue, so I recommended to do the exploratory laparotomy, colostomy, possible bowel resection. I did talk to the patient and the patient's about the benefit, the risk, alternatives of the surgery. I indicated the risks may include but not limited such as bleeding, infection, abscess, sepsis, multiple organ failure, DVT, stroke, myocardial infarction and even , injury to the bowel, abdominal hernia. The patient and his understand. The patient signed informed consent. They agreed to proceed with procedure. I answered all questions. DETAILS OF PROCEDURE: . First we identified the patient, verified the procedure and we brought the patient to the OR, put the patient in the supine position. The patient received SCD on bilateral legs to prevent DVT. Also, patient received 4.5 grams Zosyn IV for prophylactic antibiotic and the patient received general anesthesia without difficulty. Also, patient received Rosas catheter insertion. The abdomen was prepped and draped in routine sterile fashion. After timeout, I made a midline incision getting into the abdomen without difficulty. Once we opened the peritoneum and there was some air grady out. Then the abdomen shows significant inflammation and edema around the pelvic area and also there is some old blood with hematoma around the pelvic area. We cleaned out all the old blood about 1 liter. So we mobilized the colon to rectal anastomosis area. Then we found the patient had leak on the anastomosis site. So once we mobilized the rectal area and we put a 60mm TIA staple, tried to staple on distal anastomosis on the rectal site, but because tissue has significant edema, inflammation, and difficult to close TIA staple. Eventually, we closed and we took down the anastomosis site. Then, we used a 3-0 Vicryl to reinforce the rectum site interruptedly. Rechecked, no leak, no active bleeding. The proximal site of the colon we used the Endo-NAYAN staple for transection on the anastomosis site. We removed the anastomosis site to send to pathology. Then we mobilized the descending colon and tried to create a colostomy. Then we chose a left side to create a colostomy and removed the partial skin to create a round incision about 2.5 cm incision, reached the fascia, opened the fascia, opened peritoneum brought out the colon. Then we used 3-0 Vicryl, fixed the colon to the fascial layer interruptedly and at this moment, we used the normal saline with 1 gram vancomycin to flush out the abdomen. We also sent the peritoneal flow culture. We saw a minimal amount of pus from the anastomosis site. Then, we put one 10 mm JAZMINE drainage on the pelvic area. Again, hemostasis was obtained. No active bleeding. Then I closed the abdomen, the fascial layer by using PDS #1 continuous running, closed subcutaneous layer by using 2-0 Vicryl continuous running, closed skin by using staple. Now we removed the staple line on the colostomy site to create a colostomy using 3-0 Vicryl to suture the skin to the colon interruptedly and the colon looked blood circulation is good, pink. Then, we put the dressing on and put the colostomy bag on. The patient tolerated the procedure well and during procedure, anesthesiologist gave 1 unit of RBC based on the pre-op patient's hemoglobin is 9.9 and also during the procedure, the patient heart rate about 110 to 130 and the blood pressure one time dropped below 100. The anesthesiologist decided to give him 1 unit RBC. Otherwise, the patient tolerated the procedure well. All instrument, needle and sponge count were correct x2 at the end of the case. The patient transferred to recovery room in stable condition. The patient was still intubated in the ICU. After procedure, I did talk to the [facility] ICU attending. They accepted the patient. They required to transfer over there after the procedure. Also I did talk to the patient's surgeon Dr. Sweeney after the procedure. The patient was transferred to [facility] ICU and also after procedure, I did talk to the patient's about the OR finding and the procedure we did, she understands. The loan assistant, Joie is necessary for this procedure. Her role is for retraction and exposure. I attest to the content of the Intraoperative Record and any orders documented therein. Any exceptions are noted below. JIGAR
--- NOTE | 2021-02-01 05:54 | Electrocardiogram Report ---
Test Reason : Blood Pressure : / mmHG Vent. Rate : 121 BPM Atrial Rate : 121 BPM P-R Int : 162 ms QRS Dur : 104 ms QT Int : 330 ms P-R-T Axes : 011 042 -08 degrees QTc Int : 468 ms Sinus tachycardia T wave abnormality, consider inferior ischemia Abnormal ECG When compared with ECG of 24-OCT-2020 06:19, Inverted T waves have replaced nonspecific T wave abnormality in Inferior leads Nonspecific T wave abnormality no longer evident in Lateral leads Confirmed by Parish Dietz ([id number]) on 02/01/2021 5:53:57 AM Referred By: REFERRED SELF Confirmed By:Parish Dietz
--- NOTE | 2021-02-01 05:59 | Discharge Summary (DS) ---
ADMITTING DIAGNOSES: Post stat sigmoid colon resection, anastomosis leak, abscess. DISCHARGE DIAGNOSES: Post stat sigmoid colon resection, anastomosis leak, abscess, hematoma. OPERATION: Exploratory laparotomy with takedown colon-rectum anastomosis, create a colostomy, insertion of JAZMINE drainage. SURGEON: Maryann Hernández MD DETAILS OF DISCHARGE SUMMARY: This is a 55-year-old gentleman who had sigmoid colon [place] surgeon [place] [facility], and the patient presented to the ER with significant abdominal pain and the patient had a CT scan diagnosis of anastomosis leak with abscess. The patient with sepsis and we took the patient to the OR. We did exploratory laparotomy with takedown anastomosis, created a colostomy, and the patient tolerated the procedure well. After the procedure, the patient was transferred to ICU in stable condition, but the patient still on intubation. After procedure, [facility]. [facility]. PHYSICAL EXAMINATION: VITAL SIGNS: Temperature is 36.4, the respiratory rate is 16, heart rate 112, blood pressure 142/64, O2 saturation 97%. GENERAL: The patient is still on the ventilation. NECK: No JVD. CHEST: Bilateral lung sounds clear. HEART: Normal S1, S2. No murmur. ABDOMEN: Soft, nondistended. Dressing intact. Colostomy bag intact. EXTREMITIES: No edema. The patient was transferred to [facility] ICU. JIGAR
[2021-02-01] MEDS ORDERED: LOSARTAN POTASSIUM 25 MG TAB PO SCH (09:00)
[2021-02-01] MEDS ORDERED: CHOLECALCIFEROL 1,000 UNITS 25 MCG TAB PO SCH (09:00)
== END 2021-01-31 19:32 | disposition short-term general hospital (02) | DRG 907 ==
LOC: ED 10:34 → OR 13:17 → 1E 16:59